=== PATIENT | female | born 2005 | race Hispanic/Latino ===

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

== ENCOUNTER 2024-05-18 12:56 | Outpatient (CLI) | payer MEDICAID, SELFPAY ==
[2024-05-18 13:17] VITALS: BP 126/72; PULSE 96
[2024-05-18 13:18] VITALS: RESP 14; TEMP 36.7; O2SAT 99
[2024-05-18 13:32] VITALS: BMI 28.3
[2024-05-18 14:03] LABS: ROM Internal Control Test YES-OK TO RESULT pt. (Internal QC); ROM Patient Test Negative (Negative); Record Kit Lot#, ROM+ K1660
--- NOTE | 2024-05-19 07:15 | OB.TRI.NOTE ---
HPI - General General Date of Admission: 05/18/24 Date of Service: 05/18/24 Chief Complaint: contractions HPI Narrative ARLETH PEREZ, is a 18 F who presents intermittent contractions and possible LOF. Found to be 1 cm with negative ROM. 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-employment Home Medications ?Medication ?Instructions ?Recorded ?Last Taken ?Type ondansetron 4 mg disintegrating 4 mg PO Q6H PRN nausea and 07/16/23 Unknown Rx tablet vomiting #20 tabs sulfamethoxazole 800 1 tab PO BID #20 tabs 07/16/23 Unknown Rx mg-trimethoprim 160 mg tablet (Bactrim DS) ferrous sulfate 325 mg (65 mg 325 mg PO QODAY 05/18/24 Unknown History iron) tablet (iron) Allergy/AdvReac Type Severity Reaction Status Date / Time coconut Allergy Food Verified 05/18/24 13:43 Allergy peanut Allergy Food Verified 05/18/24 13:43 Allergy Family History no significant family his Social History current occupational status: student Smoking Status: Current some day smoker tobacco type: e-cigarettes substance use type: does not use NST FHR Rate Baby A Variability:: Moderate Accelerations:: 15 x 15 Decelerations:: None NST Reactive:: Yes FHR Category:: Category I Uterine Activity:: irregular Assessment & Plan (1) 38 weeks gestation of : (2) False labor: PLAN: Plan Discharged home.
== END 2024-05-18 14:30 | disposition home or self-care (01) ==
LOC: WPOUT 13:00 → WP 13:02
PROVIDERS: PCP Pediatrics; Referring Provider Obstetrics & Gynecology; Visit Provider Obstetrics & Gynecology
DX: O47.1 False labor at or after 37 completed weeks of gestation (principal); Z3A.38 38 weeks gestation of pregnancy; O99.513 Diseases of the respiratory system complicating pregnancy, third trimester; O99.333 Smoking (tobacco) complicating pregnancy, third trimester; J45.909 Unspecified asthma, uncomplicated; F17.290 Nicotine dependence, other tobacco product, uncomplicated
CPT/HCPCS: 59025; 59050; 84112; 99221; G0378

== ENCOUNTER 2024-05-26 07:55 | Inpatient (IN) | payer MEDICAID, SELFPAY ==
[2024-05-26] VITALS (54 sets, daily range): BP systolic 97–142; BP diastolic 55–94; PULSE 64–122; RESP 15–20; TEMP 35.8–36.6; O2SAT 92–100; BMI 29.2
--- NOTE | 2024-05-26 08:21 | PCM.HP.OB ---
HPI - General General Date of Admission: 05/26/24 HPI Narrative ARLETH PERZE, is a 18 F who presents for contractions that started last night. She thinks she also may be leaking fluid. 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-employment Home Medications ?Medication ?Instructions ?Recorded ?Last Taken ?Type ondansetron 4 mg disintegrating 4 mg PO Q6H PRN nausea and 07/16/23 Unknown Rx tablet vomiting #20 tabs sulfamethoxazole 800 1 tab PO BID #20 tabs 07/16/23 Unknown Rx mg-trimethoprim 160 mg tablet (Bactrim DS) ferrous sulfate 325 mg (65 mg 325 mg PO QODAY 05/18/24 05/24/24 12:00 History iron) tablet (iron) Allergy/AdvReac Type Severity Reaction Status Date / Time coconut Allergy Food Verified 05/18/24 13:43 Allergy peanut Allergy Food Verified 05/18/24 13:43 Allergy Family History no significant family his Social History current occupational status: student Smoking Status: Current some day smoker tobacco type: e-cigarettes substance use type: does not use NST FHR Rate Baby A Baseline: 140 Variability:: Moderate Accelerations:: 15 x 15 Decelerations:: None NST Reactive:: Yes FHR Category:: Category I Uterine Activity:: TOCO reading every 2-3 minutes ROS Eyes Eyes: Denies blurry vision, change in vision or spots in vision ENT HEENT: Denies dizziness or headache(s) Cardiovascular Cardiovascular: Denies abdominal pain, chest pain or dyspnea Respiratory/Chest Respiratory/Chest: Denies cough, dyspnea, shortness of breath at rest or shortness of breath with exertion Gastrointestinal Gastrointestinal: Denies abdominal pain, diarrhea or vomiting Genitourinary Genitourinary: Denies change in urinary stream, difficulty urinating or dysuria Musculoskeletal Musculoskeletal: Reports none Integumentary Integumentary: Denies rash Neurologic Neurologic: Denies dizziness, headache(s), memory loss or weakness Psychiatric Psychiatric: Reports none Vital Signs Vital Signs Vital Signs: 05/26/24 07:45 05/26/24 07:45 05/26/24 07:45 Temperature Temperature Source Temporal Pulse Rate 96 Respiratory Rate Blood Pressure 121/76 H BP Systolic 121 BP Diastolic 76 Pulse Ox 05/26/24 07:45 05/26/24 07:45 05/26/24 07:45 Temperature Temperature Source Pulse Rate 96 Respiratory Rate 20 H Blood Pressure BP Systolic BP Diastolic Pulse Ox 97 05/26/24 07:45 05/26/24 07:50 05/26/24 07:50 Temperature 97.8 F Temperature Source Pulse Rate 99 Respiratory Rate Blood Pressure BP Systolic BP Diastolic Pulse Ox 97 05/26/24 07:55 05/26/24 07:55 Temperature Temperature Source Pulse Rate 92 Respiratory Rate Blood Pressure BP Systolic BP Diastolic Pulse Ox 98 Weight Weight: 165 lb 5.547 oz Body Mass Index (BMI) 29.2 Physical Exam Const alert, oriented x3 and no apparent distress General Appearance: cooperative Orientation / Consciousness: awake Exam Limitations: no limitations HEENT normocephalic Head and Scalp: normal to inspection Eyes General Eye: normal appearance of both eyes Neck full ROM and no lymphadenopathy Lymph Lymphatic: no lymphadenopathy noted Chest inspection of chest normal Resp normal respiratory effort, normal air movement and clear to auscultation bilaterally Effort and Inspection: able to speak in complete sentences and symmetric chest movement Cardio regular rate and regular rhythm GI normal to inspection, nondistended, normoactive bowel sounds Manual OB Exam: presentation cephalic, dilated 4, effaced 80 and station 0 Amniotic Fluid: clear amniotic fluid Back/Spine normal ROM Extremity full ROM and no calf tenderness Skin no rashes or lesions noted General Skin Exam: no breakdown Neuro oriented x3 and CN's II-XII intact bilaterally Psych mental status grossly normal and thought process normal Labs Labs Labs: Hct 39.3 % (37-46) Hgb 12.9 g/dL (12.0-15.0) Assessment & Plan (1) 39 weeks gestation of : (2) Rubella non-immune status, antepartum: (3) Anxiety: (4) Anemia: (5) History of posttraumatic stress disorder (PTSD):
[2024-05-26 08:28] LABS: ROM Internal Control Test YES-OK TO RESULT pt. (Internal QC)
[2024-05-26 08:32] LABS: ROM Patient Test POSITIVE (Negative)
[2024-05-26] MEDS: Lactated Ringers 1,000 ML 50 ML IV ×2 (09:30→16:27)
[2024-05-26 10:11] LABS: Absolute Lymphocyte Count 1.22 X10^3/uL (0.83-4.51); Absolute Neutrophil Count 9.3 X10^3/uL (2.0-7.7); Basophil# 0.04 X10^3/uL; Basophil% 0.4 % (0-1); Eosinophil# 0.16 X10^3/uL; Eosinophils% 1.4 % (0-5); Hematocrit 35.5 % (37-47); Lymphocyte # 1.22 X10^3/ul (0.83-4.51); Lymphocyte % 10.7 % (19-41); Mean Corpuscular Hgb 25.5 pg (27.0-32.0); Mean Corpuscular Volume 82.2 fL (81-99); Monocyte# 0.56 X10^3/uL; Monocyte% 4.9 % (0-10); NRBC Flagged by Analyzer 0 % (0-5); Neutrophil % 81.5 % (47-70); Platelet Count 302 K/mm3 (150-450); RBC Distribution Width CV 16.2 % (11.6-14.6); RBC Distribution Width SD 47.6 fl (35.1-43.9); Red Blood Count 4.32 M/mm3 (4.2-5.4); White Blood Count 11.4 K/mm3 (4.4-11.0)
[2024-05-26 10:55] LABS: Syphilis Antibodies Non-reactive
[2024-05-26] MEDS: fentaNYL-bupivacaine (epidural) 100 ML BAG EPIDURAL ×2 (12:08→16:25)
[2024-05-26] MEDS: Oxytocin 15 Units/NS 250ml 15 UNITS/250 ML IV.SOLN 2 UNITS IV (12:57)
--- NOTE | 2024-05-26 12:57 | PCM.PN.CNM ---
Subjective Subjective Patient seen at bedside. Comfortable with epidural. Objective Data Objective Data Vital Signs: Vital Signs Temp Pulse Resp BP Pulse Ox 97.4 F L 112 H 16 110/69 99 05/26/24 12:35 05/26/24 12:40 05/26/24 12:35 05/26/24 12:40 05/26/24 12:36 Weight: 165 lb 5.547 oz Body Mass Index (BMI) 29.2 Lab / Micro Data 05/26/24 09:30 Labs: Laboratory Results - last 24 hr 05/26/24 07:52: Vag Amniotic Fld Detect POSITIVE H 05/26/24 09:30: WBC 11.4 H, RBC 4.32, Hgb 11.0 L, Hct 35.5 L, MCV 82.2, MCH 25.5 L, MCHC 31.0 L, RDW Std Deviation 47.6 H, RDW Coeff of Ruthie 16.2 H, Plt Count 302, MPV 11.0, Immature Gran % (Auto) 1.100 H, Neut % (Auto) 81.5 H, Lymph % (Auto) 10.7 L, [place] % (Auto) 4.9, Eos % (Auto) 1.4, Baso % (Auto) 0.4, Absolute Neuts (auto) 9.3 H, Absolute Lymphs (auto) 1.22, Nucleated RBC % 0, Syphilis Total Ab Non-reactive, Blood Type A POSITIVE, Antibody Screen NEGATIVE Assessment & Plan (1) History of posttraumatic stress disorder (PTSD): (2) Anemia: (3) Anxiety: (4) Rubella non-immune status, antepartum: (5) 39 weeks gestation of : PLAN: Plan CE /-2 Forebag felt AROM forebag for clear fluid Start Pitocin at 2 mu/ min and increase per policy Anticipate
[2024-05-26] MEDS: Acetaminophen 500 MG Tablet PO (17:28)
[2024-05-26] MEDS: Oxytocin 15 Units/NS 250ml 15 UNITS/250 ML IV.SOLN 83 UNITS IV (18:30)
--- NOTE | 2024-05-26 18:40 | OP.PCM_ITS ---
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 She pushed well to the +2 station. Decision made to use vacuum because of recurrent decelerations. head position confirmed and vacuum placed but would not obtain suction. Patient continued to push well while a new vacuum obtained and with next contraction placed on head and good suction obtained. With good maternal pushing effort descent was noted. Vacuum released. Vacuum replaced and with a gentle pull further descent was noted. Vacuum again released. The vacuum was placed a third time and with good maternal pushing effort the head began to crown. The vacuum popped off (one time). 2nd degree episiotomy cut. With next contraction the head delivered. Tight nuchal cord x2 clamped and cut. With good maternal pushing effort the head gently guided to allow delivery of anterior and posterior shoulders. No excess traction placed on head. The body delivered. Placenta delivered with gentle traction and good uterine tone ob tained. Presentation: ABRIL Amniotic Membrane Rupture Type: Spontaneous Amniotic Fluid Description: Clear (with terminal meconuim) Placental Delivery Description: Expressed Placenta Disposition: [facility] Specimen(s) Removed: Placenta Cord Vessel Description: 3 Vessels Cord Entanglement: Around neck x 2, loose Nuchal Cord Compression: With compression Infant A Gender: Male (1 minute): 7 (5 minute): 8 Delayed Cord Clamping: No Post Vaginal Delivery Medications Given After Delivery: IV Pitocin Episiotomy Description: Midline (2nd degree - repaired with 3-0 vicryl) Laceration: None Complication Complications: None
[2024-05-27] VITALS: BP 102/68; PULSE 110; RESP 16; TEMP 36.6; O2SAT 96
[2024-05-27 04:00] VITALS: BP 94/54; PULSE 86; RESP 16; TEMP 37; O2SAT 98
[2024-05-27] MEDS: Acetaminophen 500 MG Tablet 1000 MG PO (08:14)
[2024-05-27 08:32] VITALS: BP 110/74; PULSE 97; RESP 16; TEMP 36.9; O2SAT 98
--- NOTE | 2024-05-27 08:43 | PCM.PN.OB ---
Subjective Subjective Doing well per patient and nursing staff. Ambulating and taking PO without difficulty. Voiding and passing flatus. Pain controlled. , services for assistance. Denies headache, visual changes, chest pain, shortness of breath, leg pain or increased bleeding. Lochia normal. Objective Data Objective Data Vital Signs: Vital Signs Temp Pulse Resp BP Pulse Ox O2 Del Method 98.5 F 97 16 110/74 98 Room Air 05/27/24 08:32 05/27/24 08:32 05/27/24 08:32 05/27/24 08:32 05/27/24 08:32 05/27/24 08:32 Oxygen Delivery Method Room Air Weight: 165 lb 5.547 oz Body Mass Index (BMI) 29.2 Intake & Output: Intake and Output for Last 24 Hours 05/25/24 05/26/24 05/27/24 23:59 23:59 23:59 Intake Total 1264.17 / 1264.17 Output Total 1000 / 1000 Balance 264.17 / 264.17 Lab / Micro Data 05/26/24 09:30 Labs: Laboratory Results - last 24 hr 05/26/24 09:30: WBC 11.4 H, RBC 4.32, Hgb 11.0 L, Hct 35.5 L, MCV 82.2, MCH 25.5 L, MCHC 31.0 L, RDW Std Deviation 47.6 H, RDW Coeff of Ruthie 16.2 H, Plt Count 302, MPV 11.0, Immature Gran % (Auto) 1.100 H, Neut % (Auto) 81.5 H, Lymph % (Auto) 10.7 L, [place] % (Auto) 4.9, Eos % (Auto) 1.4, Baso % (Auto) 0.4, Absolute Neuts (auto) 9.3 H, Absolute Lymphs (auto) 1.22, Nucleated RBC % 0, Syphilis Total Ab Non-reactive, Blood Type A POSITIVE, Antibody Screen NEGATIVE ROS Constitutional Constitutional: Reports systems reviewed and no addt'l complaints, except as documented; Denies headache(s) Eyes Eyes: Denies acute decrease in peripheral vision, blurry vision or change in vision ENT HEENT: Reports systems reviewed and no addt'l complaints, except as documented Cardiovascular Cardiovascular: Denies chest pain or dizziness Respiratory/Chest Respiratory/Chest: Denies cough, dyspnea, dyspnea on exertion, shortness of breath at rest or shortness of breath with exertion Gastrointestinal Gastrointestinal: Denies abdominal pain, diarrhea, nausea or vomiting Genitourinary Genitourinary: Denies abdominal discomfort Musculoskeletal Musculoskeletal: Denies limited range of motion Integumentary Integumentary: Reports systems reviewed and no addt'l complaints, except as documented Neurologic Neurologic: Reports systems reviewed and no addt'l complaints, except as documented Psychiatric Psychiatric: Reports systems reviewed and no addt'l complaints, except as documented Endocrine Endocrinology: Reports systems reviewed and no addt'l complaints, except as documented Hematologic/Lymphatic Hematologic/Lymphatic: Reports systems reviewed and no addt'l complaints, except as documented Allergic/Immunologic Allergic/Immunologic: Reports systems reviewed and no addt'l complaints, except as documented Physical Exam Const alert and oriented x3 General Appearance: cooperative Orientation / Consciousness: awake, oriented to person, oriented to place and oriented to time Exam Limitations: no limitations HEENT normocephalic Head and Scalp: normal to inspection, normocephalic and atraumatic Face and Sinus: normal facial exam Eyes General Eye: normal appearance of both eyes Neck full ROM Chest Chest: symmetrical chest wall rise Resp normal respiratory effort and normal air movement Auscultation: clear to auscultation bilaterally Cardio regular rate, regular rhythm, S1 normal heart sound, S2 normal heart sound, no murmurs, no rub, no gallops and no clicks GI normal to inspection, nondistended, normoactive bowel sounds and non-tender appearance of the vagina normal Bladder / Kidney Exam: no CVA tenderness Back/Spine normal ROM Extremity normal to inspection and full ROM Skin no rashes or lesions noted Neuro oriented x3 and moves all extremities Sensorium / Orientation: awake, alert and oriented to person Motor Exam: clonus absent Deep Tendon Reflexes: Rt Patellar (L4): 2+ and Lt Patellar (L4): 2+ Assessment & Plan (1) History of posttraumatic stress disorder (PTSD): (2) Anxiety: (3) Rubella non-immune status, antepartum: (4) Vacuum extractor delivery, delivered: (5) Second degree perineal laceration: (6) Lactating mother: PLAN: Plan 1) Routine PPD#1 2) Vitals stable 3) I&O 4) Pain management 5) services PRN 6) Planning D/C home tomorrow
--- NOTE | 2024-05-27 11:26 | CASEMGMT ---
Social Work Assessment Labor and Delivery Unit Patient Address: [address] [place] [address] [place] [address] Phone number: [phone] Date of Referral: 05/26/24 Time of Referral:? 0810 Referred By: Dr. Moralez Date of Intervention: ?05/27/24? Time of Intervention:? 1000 Reason for Referral:? patient's parents both have history of substance abuse Sw completed chart review and acknowledges social work consult for grandparent's history of substance abuse. Sw presented to bedside and introduced self to mother of baby (MOB- Genet) and another visitor who was present. MOB states that visitor present is Ender/ isabella Thomson and stated it was okay to complete assessment with her present. While talking with MOB father of baby (FOB- Mack) then returned from bathroom and was present for second half of conversation. History obtained from: medical records, staff, MOB, FOB and paternal grandma also participated sporadically throughout completion of assessment. ??? Household composition: MOB reports that she currently resides with her mom, Briseida Mayberry. FOB is currently residing with his mom. Paternal grandma states that her house is not appropriate for baby to reside in at this time. She states that she is in the process of fixing it up so that MOB and baby can then reside with them. - Sw asked MOB how her relationship is with her mom as there was an incident prior to delivery where maternal grandma was escorted off of unit and told that she cannot return. MOB states that her mom is very controlling and tried to control who was present for her delivery and MOB set her straight. MOB states that when she is discharged her mom will pick her and baby up and they were be going back to her mom's house. - Sw asked if MOB and maternal grandma are able to get along and have a healthy relationship in order to provide a stable and nurturing environment for baby to live in. MOB states that she and her mom will be fine, because if the baby is there my mom won't start anything. - Thang asked MOB if she has applied for [employer], which she states that she is on the wait list for. Paternal grandma states that she told MOB about [facility] as a potential resource for her. Sw explained that although MOB and maternal grandma may not always see eye to eye, there have not been any incidents of domestic violence, and as of now MOB is not homeless and has a safe place where she and baby can stay. Patient's parent/guardian status:? ?TRUE states that she and KIRIT have been together for 2 years after meeting through mutual friends. No concerns reported of domestic violence or intimate partner violence. Medical History: ?TRUE is 18 year old female who is 1, para 0- now 1 following labor and delivery of . MOB states that she did not learn that she was until she was 20 weeks. MOB states that she has always had irregular periods, and wasn't feeling well. MOB states that she took three tests that were all negative, but then presented to hospital and was confirmed. MOB states that when she went to her first appointment with [facility] she learned that she was already half way through the . TRUE presented to hospital in labor after spontaneous rupture of membranes. Baby had some decelerations and TRUE was taken to OR, where she ended up delivering baby vaginally. Baby boy, named Clif Solomon, weighed 6lb 4oz with apgars of 7 and 8 at one and five minutes of life, respectfully. TRUE is breast feeding and reports that it has been difficult to wake baby and keep him awake at breast. MOB states that feeds are also starting to feel painful. Sw encouraged MOB to talk to about any feeding difficulties that she has been experiencing, and reminding MOB of importance for baby to eat at least every 2-3 hours unless he shows hunger cues prior to that. Baby will be followed by Dr. Barker for pediatrics. Educational Status:? TRUE reports to completing high school. KIRIT is enrolled in an academic program at [employer] to help him obtain his diploma, he then has intentions of starting the adult welding program there. Financial Status: Neither parent is employed at this time. Both parents are financially dependent upon their parents to help them obtain necessary needs. Infant Supplies: TRUE states that she has obtained all necessary baby supplies, including: car seat, safe sleep space, clothes, diapers and wipes. Childcare/Caregiver(s):? TRUE reports that she will be the primary caregiver to baby. MOB states that she does not feel comfortable having baby go out of her sight. Sw educated MOB on what is healthy vs not healthy and how to establish some good boundaries and practice self care. Transportation:?? Neither parents has their drivers license. Both parents are dependent upon their parents for transportation to medical appointments. Programs/Agencies Involved: ?TRUE is connected to insurance provided by [employer] (Medicaid- [place]), she was informed that she needs to ensure that baby gets added to her insurance within thirty days. TRUE also receives SNAP benefits. TRUE is connected to WIC and already has a appointment scheduled. TRUE was educatd about [facility] and the benefits that resource provides, MOB receptive to referral being made by this sw. ?? - KIRIT states that he sees a counselor [facility] at [facility]. Children Services/Legal Issues:?No former children services involvement as parents. Sw to make referral to [facility] due to maternal THC use during . - Sw spoke to [facility] hotline screener, Diane. - Diane states that she is uncertain if this will get screened in or out. Sw asked that if it gets screened in and a worker needs to meet with TRUE to please call into the unit and notify nursing to expect someone. Diane expressed understanding. Behavioral Health Issues: ??Mental Health History:?FOMarj reports that he has been diagnosed with ADHD, Bipolar and PTSD. FOMarj denies being prescribed any medications to help manage his mental health symptoms. TRUE states that she has been diagnosed with anxiety and depression. Sw asked TRUE how she has felt during her and now that she has delivered baby in regards to her mental health. TRUE states that she felt fine during her and now that baby is here she reports to feeling good and does not have any concerns. ?? Substance Use History:??TRUE denies substance use during . When completing chart review thang notes that hand profiler indicates that TRUE reports to using THC during . When thang specifically asked TRUE about using THC during as it is noted by a provider, she denied use again, stating that she only vaped nicotine. . Family History:???TRUE states that her father was an alcoholic, but he has . Sw educated parents on importance of utilizing healthy and safe coping mechanisms opposed to seeking comfort from drugs or alcohol. Parents express understanding. ?? Drug Screens: No drug screens observed in TRUE's chart review, but she did provide consent for baby to be tested. Baby's urine at time of delivery was negative, meconium still pending. Family/Social Stressors:? MOB denies any issues, concerns or stressors at this time. MOB states that she is experiencing some soreness while and was encouraged to follow up with support. Support Systems: MOB identifies FOMarj as her biggest support and his two mom's. Depression/Shaken Baby/Safe Sleeping: Sw educated parents on signs and symptoms of baby blues and mood and anxiety disorders to be on the lookout for. Parents express understanding. Sw educated parents on shaken baby prevention and ABCs of safe sleep. MOB and FOB express understanding. FOMarj states that if TRUE were to struggle with her mental health during this period he would be able to recognize that and would know how to help and support her. ASSESSMENT:? MOB and baby currently admitted following labor and delivery. TRUE reports that she is planning on staying admitted until tomorrow (05/28). Both parents with mental health history and concern for substance abuse although initially it was denied. The room smelled like THC, education provided to MOB, FOB and paternal grandma that anytime anyone smokes anything they need to wash their face, hands, and change their shirt/ clothes prior to holding baby to prevent him from breathing that in. TRUE remained engaged and interactive during completion of assessment, although she appeared tired. MOB having difficulty with feeds and keeping baby awake at breast, education and support provided, encouraged to follow up and discuss concerns with support. TRUE is receptive to referral to [facility]- to be made on this date. Referral to Children Services warranted due to concern for substance use during - although MOB denies and baby urine screen negative. Safe Plan of Care for related to substance use:? Parents were encouraged to abstain from smoking THC or any other substances around baby. PLAN:?? No other services requested or indicated. MOB and baby to be discharged when medically ready. Parents were provided literature regarding: signs and symptoms of baby blues and mood and anxiety disorders, [facility], shaken baby prevention, ABCs of safe sleep and a list of county resources that are available for them should any needs present themselves. Lee Ann Morejon, WALL CRANE OPERATOR, CHEMICAL RECLAMATION EQUIPMENT OPERATOR
[2024-05-27 12:15] VITALS: BP 106/68; PULSE 90; RESP 16; TEMP 36.3; O2SAT 96
[2024-05-27 15:57] VITALS: BP 108/83; PULSE 102; RESP 18; TEMP 36.1
[2024-05-27] MEDS: Naproxen 500 MG Tablet PO (17:11)
[2024-05-27 20:20] VITALS: BP 123/76; PULSE 87; RESP 16; TEMP 36.6; O2SAT 97
[2024-05-28 01:56] VITALS: BP 99/69; PULSE 79; RESP 16; TEMP 36.3; O2SAT 96
[2024-05-28 08:00] VITALS: BP 111/68; PULSE 84; RESP 14; TEMP 36.6; O2SAT 99
--- NOTE | 2024-05-28 10:27 | PCM.PN.OB ---
Subjective Subjective Doing well per patient and nursing staff. Ambulating and taking PO without difficulty. Voiding and passing flatus. Pain controlled. , services for assistance. Denies headache, visual changes, chest pain, shortness of breath, leg pain or increased bleeding. Lochia normal. Objective Data Objective Data Vital Signs: Vital Signs Temp Pulse Resp BP Pulse Ox O2 Del Method 98 F 84 14 111/68 99 Room Air 05/28/24 08:00 05/28/24 08:00 05/28/24 08:00 05/28/24 08:00 05/28/24 08:00 05/28/24 08:00 Oxygen Delivery Method Room Air Weight: 165 lb 5.547 oz Body Mass Index (BMI) 29.2 Intake & Output: Intake and Output for Last 24 Hours 05/26/24 05/27/24 05/28/24 23:59 23:59 23:59 Intake Total 1264.17 / 1264.17 930.83 / 930.83 Output Total 1000 / 1000 Balance 264.17 / 264.17 930.83 / 930.83 Lab / Micro Data 05/26/24 09:30 ROS Constitutional Constitutional: Reports systems reviewed and no addt'l complaints, except as documented; Denies headache(s) Eyes Eyes: Denies acute decrease in peripheral vision, blurry vision or change in vision ENT HEENT: Reports systems reviewed and no addt'l complaints, except as documented Cardiovascular Cardiovascular: Denies chest pain or dizziness Respiratory/Chest Respiratory/Chest: Denies cough, dyspnea, dyspnea on exertion, shortness of breath at rest or shortness of breath with exertion Gastrointestinal Gastrointestinal: Denies abdominal pain, diarrhea, nausea or vomiting Genitourinary Genitourinary: Denies abdominal discomfort Musculoskeletal Musculoskeletal: Denies limited range of motion Integumentary Integumentary: Reports systems reviewed and no addt'l complaints, except as documented Neurologic Neurologic: Reports systems reviewed and no addt'l complaints, except as documented Psychiatric Psychiatric: Reports systems reviewed and no addt'l complaints, except as documented Endocrine Endocrinology: Reports systems reviewed and no addt'l complaints, except as documented Hematologic/Lymphatic Hematologic/Lymphatic: Reports systems reviewed and no addt'l complaints, except as documented Allergic/Immunologic Allergic/Immunologic: Reports systems reviewed and no addt'l complaints, except as documented Physical Exam Const alert and oriented x3 General Appearance: cooperative Orientation / Consciousness: awake, oriented to person, oriented to place and oriented to time Exam Limitations: no limitations HEENT normocephalic Head and Scalp: normal to inspection, normocephalic and atraumatic Face and Sinus: normal facial exam Eyes General Eye: normal appearance of both eyes Neck full ROM Chest Chest: symmetrical chest wall rise Resp normal respiratory effort and normal air movement Auscultation: clear to auscultation bilaterally Cardio regular rate, regular rhythm, S1 normal heart sound, S2 normal heart sound, no murmurs, no rub, no gallops and no clicks GI normal to inspection, nondistended, normoactive bowel sounds and non-tender appearance of the vagina normal Bladder / Kidney Exam: no CVA tenderness Back/Spine normal ROM Extremity normal to inspection and full ROM Skin no rashes or lesions noted Neuro oriented x3, CN's II-XII intact bilaterally and moves all extremities Sensorium / Orientation: awake, alert and oriented to person Motor Exam: clonus absent Deep Tendon Reflexes: Rt Patellar (L4): 2+ and Lt Patellar (L4): 2+ Assessment & Plan (1) Lactating mother: (2) Second degree perineal laceration: (3) Vacuum extractor delivery, delivered: (4) History of posttraumatic stress disorder (PTSD): (5) Anxiety: PLAN: Plan 1) Routine care, PPD #2 2) Vitals signs stable 3) Pain controlled 4) , services PRN 5) D/C home 6) Follow up in 2 weeks and 6 weeks
--- NOTE | 2024-05-28 10:27 | PCM.DC.SUM ---
Providers Date of Admission: 05/26/24 Primary Care Physician: Dr. Greyson Barker MD Reason For Visit: VAGINAL DELIVERY Diagnosis Discharge Diagnosis (1) History of posttraumatic stress disorder (PTSD): Status: Acute Code(s): Z86.59 - Personal history of other mental and behavioral disorders (2) Anxiety: Status: Acute Code(s): F41.9 - Anxiety disorder, unspecified (3) Rubella non-immune status, antepartum: Status: Acute Code(s): O09.899 - Supervision of other high risk pregnancies, unspecified trimester; Z28.39 - Other underimmunization status (4) Vacuum extractor delivery, delivered: Status: Acute Code(s): O75.9 - Complication of labor and delivery, unspecified (5) Second degree perineal laceration: Status: Acute Code(s): O70.1 - Second degree perineal laceration during delivery (6) Lactating mother: Status: Acute Code(s): Z39.1 - Encounter for care and examination of lactating mother Plan 1) Routine PPD#1 2) Vitals stable 3) I&O 4) Pain management 5) services PRN 6) Planning D/C home tomorrow Medications at Discharge Home Medications acetaminophen 500 mg tablet 1,000 mg (2 x 500 mg) PO Q6H PRN PRN Pain 1-10 Or Fever #0 tabs 05/28/24 naproxen 500 mg tablet 500 mg PO Q8H PRN PRN Pain Score 1-10 #0 tabs 05/28/24 Weight / BMI Weight Weight: 165 lb 5.547 oz Body Mass Index (BMI) 29.2 ABG / Lab / Microbiology Data 05/26/24 09:30 D/C Instructions Discharge Diet: No restrictions Discharge Activity: Return to Normal Activity, May Drive, May Shower and May Take a Tub Bath May resume sexual activity in: 6 weeks Weight Bearing Status: Full weight bearing Call your doctor if you observe: Fever of 101 or Higher, Inability to urinate, Using more than 1 pad per hour, Shortness of breath, Chest pain, Increased palpitations (irregular heartbeat), Calf discomfort and Uncontrolled pain Please Follow Up With: Estella Michael CNM When: 2 week virtual visit and 6 week visit Meaningful Use Info Meaningful Use Meaningful Use Diagnoses (Choose all that apply): None applicable Ischemic Stroke Statin Dosing Therapy Reference: STATIN DOSE THERAPY REFERENCE: * Patients > 75 years receive moderate or high dose statin therapy. * Patients 75 years or YOUNGER should receive HIGH intensity statin dose unless contraindicated. You will be required to document reason for non-treatment if statin daily dose does not meet guidelines. HIGH DOSE STATIN THERAPY DAILY Atorvastatin > than or = to 40 mg Rosuvastatin > than or = to 20 mg Amlodipine + Atorvastatin > than or = to 2.5/40 mg Ezetimibe + Simvastatin 10/80 mg Simvastatin 80mg Discharge Plan Admission Admit Date/Time: 05/26/24 07:55 Primary Reason for Your Visit: Vaginal Delivery Attending Provider: Minnie Cobb Primary Care Provider: Greyson Barker Discharge Orders/Prescriptions Prescriptions: New acetaminophen 500 mg Tablet 1,000 mg PO Q6H PRN PRN (Reason: Pain 1-10 Or Fever) Qty: 0 0RF naproxen 500 mg Tablet 500 mg PO Q8H PRN PRN (Reason: Pain Score 1-10) Qty: 0 0RF Discontinued sulfamethoxazole-trimethoprim [Bactrim DS] 800-160 mg tablet 1 tab PO BID Qty: 20 0RF ondansetron 4 mg tablet,disintegrating 4 mg PO Q6H PRN (Reason: nausea and vomiting) Qty: 20 0RF ferrous sulfate [iron] 325 mg (65 mg iron) tablet 325 mg PO QODAY Referrals / Follow Up: Greyson Barker MD [Primary Care Provider] - Minnie Cobb MD [Med Staff - Active Staff] - Disposition Disposition (needs filled in before D/C Order can be placed): Home, Self Care
--- NOTE | 2024-06-14 12:20 | CASEMGMT ---
[facility] Social work received mandated laborer golf course letter indicating that referral made by this neonatal social worker on 05/27/24 was screened in. The assigned electric utility lineworker is Jessica Edwards ([phone]). No other needs identified at this time. Lee Ann Morejon, CONCRETE PAVEMENT INSTALLER, BELT BUCKLE MAKER
== END 2024-05-28 12:00 | disposition home or self-care (01) | DRG 560 ==
LOC: WPOUT 08:02 → WP 08:02
PROVIDERS: Advanced Practice Midwife; Obstetrics & Gynecology; Admitting Provider Obstetrics & Gynecology; PCP Pediatrics; Referring Provider Obstetrics & Gynecology; Visit Provider Obstetrics & Gynecology
DX: O99.02 Anemia complicating childbirth (principal); Z37.0 Single live birth; D64.9 Anemia, unspecified; F17.290 Nicotine dependence, other tobacco product, uncomplicated; O99.334 Smoking (tobacco) complicating childbirth; O70.1 Second degree perineal laceration during delivery; O77.0 Labor and delivery complicated by meconium in amniotic fluid; O69.2XX0 Labor and delivery complicated by other cord entanglement, with compression, not applicable or unspecified; O76 Abnormality in fetal heart rate and rhythm complicating labor and delivery; Z28.39 Other underimmunization status; Z79.899 Other long term (current) drug therapy; Z3A.39 39 weeks gestation of pregnancy
CPT/HCPCS: 59025; 59050; 84112; 85025; 86780; 86850; 86900; 86901; 99221; J7120; G0378

== ENCOUNTER 2025-05-15 13:05 | Emergency (ER) | payer MEDICAID, SELFPAY ==
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
[2025-05-15 13:07] VITALS: BP 109/70; PULSE 82; RESP 16; TEMP 37.3; O2SAT 99; BMI 21.7
[2025-05-15 13:21] LABS: Hematocrit 40.8 % (37-47); Hemoglobin 13.2 g/dL (12.0-15.0); Immature Granulocytes Count 0.020 X10^3/uL (0.0-0.0); Mean Corp Hgb Conc 32.4 g/dL (32-36); Mean Corpuscular Volume 84.0 fL (81-99); Mean Platelet Vol. 9.8 fl (6.2-12.0); NRBC Flagged by Analyzer 0 % (0-5); Platelet Count 319 K/mm3 (150-450); RBC Distribution Width CV 14.6 % (11.6-14.6); RBC Distribution Width SD 44.8 fl (35.1-43.9); Red Blood Count 4.86 M/mm3 (4.2-5.4); White Blood Count 5.9 K/mm3 (4.4-11.0)
[2025-05-15 14:09] LABS: AST(SGOT) 13 U/L (<=31); Alanine Aminotransfer ALT/SGPT 10 U/L (<=34); Albumin, Serum 4.4 g/dL (3.5-5.0); Alkaline Phosphatase 73 U/L (35-104); Anion Gap 14 (5-15); BUN 9 mg/dL (4-19); BUN/Creat Ratio 13.8 RATIO (10-20); Calcium,Total 9.3 mg/dL (7.6-11.0); Carbon Dioxide 22.1 mmol/L (21.0-32.0); Chloride 104 mmol/L (98-108); Estimated Creatinine Clearance 110.80 ml/min (50-250); Globulin 3.2 g/dL (2.2-4.2); Glucose 83 mg/dL (70-99); Lipase 22 U/L (13-75); Potassium 3.8 mmol/L (3.3-5.1)
[2025-05-15 14:19] LABS: Internal QC Validated? YES +Cl - CLEAR BKGD; Pregnancy, Serum, hCG Quali. NEGATIVE Negative; Record Kit Lot#, Serum Preg. 980607
[2025-05-15 15:15] VITALS: BP 101/58; PULSE 78; RESP 14; O2SAT 98
--- NOTE | 2025-05-15 15:37 | CT_ITS ---
PROCEDURE: ABDOMEN/PELVIS W IV CONT ONLY 05/15/2025 REASON FOR EXAM: RIGHT LOWER QUADRANT ABDOMINAL PAIN TECHNIQUE: Procedure Code: CTABDPELIV Modality: CT Procedure: ABDOMEN/PELVIS W IV CONT ONLY Coronal and Sagittal reconstruction series were provided. CONTRAST: Isovue 370 VOLUME: 75 mL One or more dose reduction techniques were used (e.g., Automated exposure control, adjustment of the mA and/or kV according to patient size, use of iterative reconstruction technique. RADIATION DOSE SUMMARY: CTDlvol: 18 mGy DLP: 267 mGycm COMPARISON: July 16, 2023 FINDINGS: Lung bases: Clear Liver: Focal fat at the interlobar fissure. Gallbladder: Normal Spleen: Normal Pancreas: Normal Adrenals: Normal Kidneys: Normal Bladder: Normal Reproductive Organs: Uterus is anteverted. Left ovary is normal. Right ovary is associated with a circumscribed cyst measuring 2.8 x 3.3 cm. Bowel: Stomach, small bowel and colon are unremarkable. Appendix: Normal Lymph nodes: Normal Vasculature: Normal Peritoneum / Retroperitoneum: No free air, free fluid or mass. Bones: Normal CT/Abdomen/Pelvis W IV Cont ONLY IMPRESSION: 1. Right ovarian cyst is statistically benign. Correlate with midcycle pain. ACR White Paper recommendations (Winters, et al. J Am Anrdey Radiol 2020;17:248-254) suggest the following: No further imaging requi red. 2. Appendix is unremarkable. Reading Location: [id number]
--- NOTE | 2025-05-15 15:50 | EX.ED.DYSGE1 ---
HPI History of Present Illness Chief Complaint: Abd Pain Detail of Chief Complaint: Pain inferior McBurney's point that started at 12 midnight Informant: patient Onset/Context/Timing Onset: Today and Hours Context: Sudden Onset Timing: Continuous Quality: Pain Location: Inferior McBurney's point Current Severity: Mild Maximum Severity: Moderate Worsened by: When the nurse practitioner at urgent care pushed her abdomen Relieved by: Leaving it alone Associated Symptoms Associated Symptoms: Nausea, no anorexia, elevated temperature 100 Narrative Narrative: Patient is a 19-year-old female. She is sexually active. Her last menses is unknown. She states last evening her significant other wanted to have intercourse. She states that she was in too much discomfort. She does report temperature of 100.0 °F. She does endorse nausea. She is not anorexic. She states the pain is made worse when the nurse practitioner at urgent care pushed on it. She denies dysuria, frequency, urgency or hematuria. She denies history of renal ureteral lithiasis. She denies history of ovarian cyst, endometriosis, STI. Prior similar symptoms: No Recent Illness/Hospitalization: No PFSH PFSH Medical History Family history of hearing loss at age younger than 7 years Physical exam, pre-employment Asthma Home Medications Medication Instructions Recorded Last Taken Type NK 05/15/25 Unknown History Allergy/AdvReac Type Severity Reaction Status Date / Time coconut Allergy Food Verified 05/15/25 13:07 Allergy peanut Allergy Food Verified 05/15/25 13:07 Allergy Social History current occupational status: student Smoking Status: Current every day smoker tobacco type: e-cigarettes substance use type: does not use ROS ROS ED Constitutional Constitutional ED: Reports fever(s); Denies chills, subjective, sweats or weight loss Eyes Eyes: Denies blurry vision or change in vision ENT ENT ED: Denies ear pain, rhinorrhea or sore throat Cardiovascular Cardiovascular: Denies chest pain, orthopnea, palpitations, paroxysmal nocturnal dyspnea or racing heartbeat Respiratory/Chest Respiratory/Chest: Denies cough, dyspnea, dyspnea on exertion, orthopnea or paroxysmal nocturnal dyspnea Gastrointestinal Gastrointestinal: Reports abdominal pain, nausea and other Details: No diarrhea recently. ; Denies constipation, diarrhea, melena or vomiting Genitourinary Genitourinary ED: Denies dysuria, hematuria or urinary frequency Musculoskeletal Musculoskeletal: Denies arthralgias, back pain or myalgias Integumentary Denies rash Endocrine Endocrinology: Denies cold intolerance or heat intolerance Hematologic/Lymphatic Hematologic/Lymphatic: Reports systems reviewed and no addt'l complaints, except as documented EXAM Physical Exam Const Vital Signs: 05/15/25 13:07 05/15/25 15:15 Temperature 99.2 F H Temperature Source Oral Pulse Rate 82 78 Respiratory Rate 16 14 Blood Pressure 109/70 101/58 L Blood Pressure Mean 83 72 Pulse Ox 99 98 Oxygen Delivery Method Room Air Room Air Positive well nourished and well developed General Appearance ED: well developed and NAD; Negative for pallor HEENT Reports moist mucous membranes HEENT Narrative: Head is atraumatic and normocephalic. Ears normal. Nares patent Eyes PERRL and EOMs intact bilaterally General Eye ED: Negative for pale conjunctiva or scleral icterus Neck no lymphadenopathy, supple and no JVD Chest Wall inspection of chest normal and palpation of chest normal Resp normal respiratory effort and clear to auscultation bilaterally Cardio regular rate, regular rhythm, S1 normal heart sound, S2 normal heart sound and no murmurs GI normal to inspection, nondistended, normoactive bowel sounds, non-distended and no masses; Negative for non-tender or hepatosplenomegaly Palpation: soft and tender RLQ, McBurney's point, periumbilical, suprapubic, Obturator sign, Psoas sign and Rovsing's sign Back/Spine no CVA tenderness Extremity normal to inspection Neuro oriented x3 and CN's II-XII intact bilaterally Sensorium / Orientation: alert Psych mental status grossly normal Skin no rashes or lesions noted, no wounds and skin turgor normal General Skin Exam: elasticity normal; Negative for jaundice or pallor MDM MDM MDM Narrative Medical decision making narrative: With right lower quadrant abdominal pain need to evaluate for appendicitis, regional enteritis, mesenteric adenitis, abdominal pain unknown etiology, gynecologic pathology needs to be considered i.e. ovarian cyst. Lab Data Attestation: I reviewed the patient's lab results. Lab results narrative: CBC is unremarkable. Comprehensive metabolic panel is normal. test was negative Labs: Laboratory Results - last 24 hr 05/15/25 13:05 WBC 5.9 RBC 4.86 Hgb 13.2 Hct 40.8 MCV 84.0 MCH 27.2 MCHC 32.4 RDW Std Deviation 44.8 H RDW Coeff of Ruthie 14.6 Plt Count 319 MPV 9.8 Immature Gran % (Auto) 0.300 Neut % (Auto) 57.1 Lymph % (Auto) 32.9 [place] % (Auto) 8.9 Eos % (Auto) 0.3 Baso % (Auto) 0.5 Absolute Neuts (auto) 3.4 Absolute Lymphs (auto) 1.93 Nucleated RBC % 0 Sodium 140 Potassium 3.8 Chloride 104 Carbon Dioxide 22.1 Anion Gap 14 BUN 9 Creatinine 0.67 L Estim Creat Clear Calc 110.80 Est GFR (MDRD) Non-Af 128 BUN/Creatinine Ratio 13.8 Glucose 83 Calcium 9.3 Total Bilirubin 0.32 AST 13 ALT 10 Alkaline Phosphatase 73 Total Protein 7.6 Albumin 4.4 Globulin 3.2 Albumin/Globulin Ratio 1.4 Lipase 22 Serum , Qual NEGATIVE Radiography Diagnostic Testing: Clinical Impression(s) from Imaging Studies Abdomen/Pelvis CT 05/15/25 15:37 IMPRESSION: 1. Right ovarian cyst is statistically benign. Correlate with midcycle pain. ACR White Paper recommendations (Winters, et al. J Am Andrey Radiol 2020;17:248-254) suggest the following: No further imaging required. 2. Appendix is unremarkable. Reading Location: [facility] Treatment and Re-Evaluation :: Patient was informed of results. She also was informed of recommendation by radiologist based on white paper. Discharge Plan Triage Chief Complaint: Abd Pain ED Provider: Les Marrero Dx/Rx/DC Orders Clinical Impression: Abdominal pain, right lower quadrant, Cyst of right ovary, Elevated temperature Instructions: ED Ovarian Cyst Prescriptions: No Action NK Primary Care Provider: Greyson Barker Referrals: Greyson Barker MD [Primary Care Provider, Pediatrics] Activity Restrictions/Additional Instructions: 1. If you develop severe pain, nausea and vomiting return to the emergency department because this may represent ovarian torsion 2. Follow-up with your [facility] in the next 5 to 7 days Print Language: Luxembourgish
[2025-05-15 17:19] VITALS: BP 126/78; PULSE 64; RESP 18; TEMP 36.5; O2SAT 99
== END 2025-05-15 17:20 | disposition home or self-care (01) ==
PROVIDERS: Emergency Provider Emergency Medicine; PCP Pediatrics; Visit Provider Emergency Medicine
DX: R10.31 Right lower quadrant pain (principal); N83.201 Unspecified ovarian cyst, right side; R11.0 Nausea; J45.909 Unspecified asthma, uncomplicated; R50.9 Fever, unspecified; F17.290 Nicotine dependence, other tobacco product, uncomplicated
CPT/HCPCS: 74177; 80053; 83690; 84703; 85025; 99284; Q9967; A4216

== ENCOUNTER 2025-06-01 13:48 | Emergency (ER) | payer MEDICAID, SELFPAY ==
[2025-06-01 13:49] VITALS: BP 99/62; PULSE 68; RESP 15; TEMP 36.6; O2SAT 100; BMI 21.4
[2025-06-01] MEDS: 0.9% Normal Saline (1000mL) 1,000 ML 1000 ML IV (14:20)
--- NOTE | 2025-06-01 14:29 | EDS_ITS ---
HPI History of Present Illness Chief Complaint: Nausea/Vomiting Narrative Narrative: Chief complaint and HPI: 19-year-old female with past medical history of asthma presents for evaluation of nausea and vomiting. Onset of symptoms 2 days ago. Emesis is nonbloody. Also having nonbloody diarrhea. States her son is in daycare with similar symptoms however his have already improved. She endorses decreased p.o. intake secondary to her symptoms. She denies any fever, chills, shortness of breath, chest pain, URI symptoms, abdominal pain, dysuria. States she has irregular periods and there is a chance she could be . Review of systems: See HPI Medications: As listed on the chart Allergies: As listed on the chart PFSH: Per chart Vital signs: As listed on the chart. Reviewed. Physical exam: Gen: A&O x3, NAD Head: Normocephalic, atraumatic Eyes: No sclera icterus, conjunctiva clear ENT: Moist mucous membranes CV: RRR, no murmurs Resp: Lungs CTA BL, no w/r/c GI: Abd soft, non-distended, non-tender, no r/r/g Musc: Full ROM, no deformity Skin: Warm, dry Neuro: Alert, oriented, grossly intact, sensation intact Psych: Cooperative, appropriate mood and affect [facility] History Family history of hearing loss at age younger than 7 years Physical exam, pre-employment Asthma Home Medications ?Medication ?Instructions ?Recorded ?Last Taken ?Type NK 05/15/25 Unknown History Allergy/AdvReac Type Severity Reaction Status Date / Time coconut Allergy Food Verified 06/01/25 13:51 Allergy peanut Allergy Food Verified 06/01/25 13:51 Allergy Social History current occupational status: student Smoking Status: Current every day smoker tobacco type: e-cigarettes substance use type: does not use EXAM Physical Exam Const Vital Signs: 06/01/25 13:49 Temperature 97.9 F Temperature Source Oral Pulse Rate 68 Respiratory Rate 15 Blood Pressure 99/62 Blood Pressure Mean 74 Pulse Ox 100 Oxygen Delivery Method Room Air MDM MDM MDM Narrative Medical decision making narrative: 19-year-old female with past medical history of asthma presents for evaluation of nausea and vomiting. Onset of symptoms 2 days ago. Emesis is nonbloody. Also having nonbloody diarrhea. States her son is in daycare with similar symptoms however his have already improved. She endorses decreased p.o. intake secondary to her symptoms. On presentation, patient no acute distress. Vitals are stable. Differential diagnosis includes but is not limited to viral gastroenteritis, electrolyte abnormality, dehydration, UTI, . Patient abdominal exam is benign therefore do not think any CT abdomen pelvis is needed. NS bolus and Zofran ordered for symptoms. Laboratory workup ordered. CBC without leukocytosis or anemia. CMP unremarkable without YOSVANY. Lipase unrem arkable. UA positive for ketones which is consistent with mild dehydration. Negative for UTI. Urine negative. On reevaluation, patient has had no vomiting here in the emergency department. She was able to tolerate p.o. intake. Patient stable to discharge home. Suspect viral etiology. Zofran prescribed. Follow-up with PCP. She confirmed understand the plan. Impression: 1. Viral gastroenteritis 2. Mild dehydration Lab Data Labs: Laboratory Results - last 24 hr 06/01/25 06/01/25 14:30 15:02 WBC 10.4 RBC 5.05 Hgb 13.7 Hct 41.0 MCV 81.2 MCH 27.1 MCHC 33.4 RDW Std Deviation 42.0 RDW Coeff of Ruthie 14.2 Plt Count 399 MPV 9.4 Immature Gran % (Auto) 0.200 Neut % (Auto) 86.9 H Lymph % (Auto) 10.6 L [place] % (Auto) 2.0 Eos % (Auto) 0.0 Baso % (Auto) 0.3 Absolute Neuts (auto) 9.0 H Absolute Lymphs (auto) 1.10 Nucleated RBC % 0 Sodium 139 Potassium 3.8 Chloride 104 Carbon Dioxide 22.7 Anion Gap 12 BUN 9 Creatinine 0.56 L Estim Creat Clear Calc 132.56 Est GFR (MDRD) Non-Af 134 BUN/Creatinine Ratio 16.3 Glucose 101 H Calcium 9.4 Total Bilirubin 0.32 AST 14 ALT 10 Alkaline Phosphatase 68 Total Protein 7.5 Albumin 4.5 Globulin 3.1 Albumin/Globulin Ratio 1.5 Lipase 25 Urine Color Yellow Urine Clarity Sl. Cloudy Urine pH 8.0 Ur Specific [place] 1.010 Urine Protein 15 H Urine Glucose (UA) Normal Urine Ketones 150 A* Urine Occult Blood Negative Urine Nitrite Negative Urine Bilirubin Negative Urine Urobilinogen Normal Ur Leukocyte Esterase 25 H Urine RBC 0 SEEN Urine WBC 0-5 SEEN Ur Squamous Epith Cells 0-5 SEEN Urine Bacteria 1+ Urine Mucus 1+ Urine Test Negative Discharge Plan Triage Chief Complaint: Nausea/Vomiting ED Provider: Wade Coto Dx/Rx/DC Orders Prescriptions: No Action NK Primary Care Provider: Greyson Barker Referrals: Greyson Barker MD [Primary Care Provider, Pediatrics] Print Language: Mauritian
[2025-06-01 14:38] LABS: Hematocrit 41.0 % (37-47); Hemoglobin 13.7 g/dL (12.0-15.0); Immature Granulocytes Count 0.020 X10^3/uL (0.0-0.0); Mean Corp Hgb Conc 33.4 g/dL (32-36); Mean Corpuscular Volume 81.2 fL (81-99); Mean Platelet Vol. 9.4 fl (6.2-12.0); NRBC Flagged by Analyzer 0 % (0-5); Platelet Count 399 K/mm3 (150-450); RBC Distribution Width CV 14.2 % (11.6-14.6); RBC Distribution Width SD 42.0 fl (35.1-43.9); Red Blood Count 5.05 M/mm3 (4.2-5.4); White Blood Count 10.4 K/mm3 (4.4-11.0)
[2025-06-01 15:09] LABS: Red Blood Cells-Urine 0 SEEN /hpf (0-5)
[2025-06-01 15:22] LABS: Color, Urine Yellow (Yellow); Glucose, Dipstick Normal (Normal); Leukocyte Esterase-Dipstick 25 /ul (Negative); Nitrite-Dipstick Negative (Negative); Occult Blood-Urine Negative /ul (Negative); Protein-Dipstick 15 mg/dl (Negative); Specific Gravity, Urine 1.010 (1.002-1.030); Urine Bilirubin Dipstick Negative (Negative)
[2025-06-01 15:26] LABS: AST(SGOT) 14 U/L (<=31); Alanine Aminotransfer ALT/SGPT 10 U/L (<=34); Albumin, Serum 4.5 g/dL (3.5-5.0); Alkaline Phosphatase 68 U/L (35-104); Anion Gap 12 (5-15); BUN 9 mg/dL (4-19); BUN/Creat Ratio 16.3 RATIO (10-20); Calcium,Total 9.4 mg/dL (7.6-11.0); Carbon Dioxide 22.7 mmol/L (21.0-32.0); Chloride 104 mmol/L (98-108); Estimated Creatinine Clearance 132.56 ml/min (50-250); Globulin 3.1 g/dL (2.2-4.2); Glucose 101 mg/dL (70-99); Lipase 25 U/L (13-75); Potassium 3.8 mmol/L (3.3-5.1)
[2025-06-01 15:30] LABS: Ketone-Dipstick 150 mg/dl (Negative)
[2025-06-01 15:31] LABS: Squamous Epithelial Cells - UA 0-5 SEEN /hpf (5-10)
[2025-06-01 15:32] LABS: Internal QC Validated? YES +Cl - CLEAR BKGD; Mucous, Urine 1+ /hpf (<or=2+); Pregnancy, Urine Negative Negative; Record Kit Lot#,Urine Preg 0000980607
[2025-06-01 16:25] VITALS: BP 108/66; PULSE 60; RESP 14; TEMP 36.6; O2SAT 100
== END 2025-06-01 16:26 | disposition home or self-care (01) ==
PROVIDERS: Emergency Provider Surgery; PCP Pediatrics; Visit Provider Surgery
DX: A08.4 Viral intestinal infection, unspecified (principal); E86.0 Dehydration; J45.909 Unspecified asthma, uncomplicated; F17.290 Nicotine dependence, other tobacco product, uncomplicated
CPT/HCPCS: 80053; 81001; 81025; 83690; 85025; 96361; 96374; 99284; A4216; J2405

== ENCOUNTER 2025-06-02 16:17 | Emergency (ER) | payer MEDICAID, SELFPAY ==
[2025-06-02 16:17] VITALS: BP 118/73; PULSE 64; RESP 14; TEMP 36.8; O2SAT 99; BMI 22.4
--- OUTSIDE RECORDS SUMMARY | 2025-06-02 16:42 | XMS RPT_ITS | CCD ---
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 L500.4050, L100.0100, L501.2450 #### [facility] [address] [place], [address] Albumin/Globulin [Mass ratio] 1.4 {ratio} Normal 0.9-2.4 [facility] Comment on above: Performed By: #### L 700.6800, L500.4050, L100.0100, L501.2450 #### [facility] [address] [place], [address] ALK PHOS 73 U/L Normal 35-104 [facility] Comment on above: Performed By: #### L 700.6800, L500.4050, L100.0100, L501.2450 #### [facility] [address] [place], [address] ALT [Catalytic activity/Vol] 10 U/L Normal <=34 [facility] Comment on above: Performed By: #### L 700.6800, L500.4050, L100.0100, L501.2450 #### [facility] [address] [place], [address] AST [Catalytic activity/Vol] 13 U/L Normal <=31 [facility] Comment on above: Performed By: #### L 700.6800, L500.4050, L100.0100, L501.2450 #### [facility] [address] [place], [address] Bilirubin [Mass/Vol] 0.32 mg/dL Normal 0.00-1.30 [facility] Comment on above: Performed By: #### L 700.6800, L500.4050, L100.0100, L501.2450 #### [facility] [address] [place], [address] BUN/CRE 13.8 RATIO Normal 10-20 [facility] Comment on above: Performed By: #### L 700.6800, L500.4050, L100.0100, L501.2450 #### [facility] [address] [place], [address] Calcium [Mass/Vol] 9.3 mg/dL Normal 7.6-11.0 [facility] Comment on above: Performed By: #### L 700.6800, L500.4050, L100.0100, L501.2450 #### [facility] [address] [place], [address] Chloride [Moles/Vol] 104 mmol/L Normal 98-108 [facility] Comment on above: Performed By: #### L 700.6800, L500.4050, L100.0100, L501.2450 #### [facility] [address] [place], [address] CO2 [Moles/Vol] 22.1 mmol/L Normal 21.0-32.0 [facility] Comment on above: Performed By: #### L 700.6800, L500.4050, L100.0100, L501.2450 #### [facility] [address] [place], [address] Creatinine [Mass/Vol] 0.67 mg/dL Low 0.70-1.20 [facility] Comment on above: Performed By: #### L 700.6800, L500.4050, L100.0100, L501.2450 #### [facility] [address] [place], [address] ECRCL 110.80 ml/min Normal 50-250 [facility] Comment on above: Performed By: #### L 700.6800, L500.4050, L100.0100, L501.2450 #### [facility] [address] [place], [address] GAP 14 Normal 5-15 [facility] Comment on above: Performed By: #### L 700.6800, L500.4050, L100.0100, L501.2450 #### [facility] [address] [place], [address] GFR/1.73 sq M.predicted among non-blacks MDRD (S/P/Bld) [Vol rate/Area] 128 mL/min/{1.73_m2} Normal >60 [facility] Comment on above: Result Comment: mL/m in/1.73m2 CKD-EPI Creatinine Equation (2020) Performed By: #### L 700.6800, L500.4050, L100.0100, L501.2450 #### [facility] [address] [place], [address] Globulin (S) [Mass/Vol] 3.2 g/dL Normal 2.2-4.2 [facility] Comment on above: Performed By: #### L 700.6800, L500.4050, L100.0100, L501.2450 #### [facility] [address] [place], [address] Glucose [Mass/Vol] 83 mg/dL Normal 70-99 [facility] Comment on above: Performed By: #### L 700.6800, L500.4050, L100.0100, L501.2450 #### [facility] [address] [place], [address] Potassium [Moles/Vol] 3.8 mmol/L Normal 3.3-5.1 [facility] Comment on above: Performed By: #### L 700.6800, L500.4050, L100.0100, L501.2450 #### [facility] [address] [place], [address] Sodium [Moles/Vol] 140 mmol/L Normal 133-145 [facility] Comment on above: Performed By: #### L 700.6800, L500.4050, L100.0100, L501.2450 #### [facility] [address] [place], [address] T PROT 7.6 g/dL Normal 5.9-8.4 [facility] Comment on above: Performed By: #### L 700.6800, L500.4050, L100.0100, L501.2450 #### [facility] [address] [place], [address] Urea nitrogen [Mass/Vol] 9 mg/dL Normal 4-19 [facility] Comment on above: Performed By: #### L 700.6800, L500.4050, L100.0100, L501.2450 #### [facility] [address] [place], [address] Emergency Department Summary on 05-15-2025 Emergency Department Summary [facility] Medical Records Department [address] [place] [address] Emergency Department Summary 05/15/25 MR#: [id number] Acct: [id number] Name: GENET MAYBERRY Rep #: [id number] : 2005 19 From: Les Marrero MD PCP: Dr. Greyson Pimentel MD Status:REG ER Location: ED HPI History of Present Illness Chief Complaint: Abd Pain Detail of Chief Complaint: Pain inferior McBurney's point that started at 12 midnight Informant: patient Onset/Context/Timing Onset: Today and Hours Context: Sudden Onset Timing: Continuous Quality: Pain Location: Inferior McBurney's point Current Severity: Mild Maximum Severity: Moderate Worsened by: When the nurse practitioner at urgent care pushed her abdomen Relieved by: Leaving it alone Associated Symptoms Associated Symptoms: Nausea, no anorexia, elevated temperature 100 Narrative Narrative: Patient is a 19-year-old female. She is sexually active. Her last menses is unknown. She states last evening her significant other wanted to have intercourse. She states that she was in too much discomfort. She does report temperature of 100.0 ???F. She does endorse nausea. She is not anorexic. She states the pain is made worse when the nurse practitioner at urgent care pushed on it. She denies dysuria, frequency, urgency or hematuria. She denies history of renal ureteral lithiasis. She denies history of ovarian cyst, endometriosis, STI. Prior similar symptoms: No Recent Illness/Hospitalizatio n: No PFSH PFSH Medical History Family history of hearing loss at age younger than 7 years Physical exam, pre-employment Asthma Home Medications ???Medication ???Instructions ???Recorded ???Last Taken ???Type NK 05/15/25 Unknown History Allergy/AdvReac Type Severity Reaction Status Date / Time coconut Allergy Food Verified 05/15/25 13:07 Allergy peanut Allergy Food Verified 05/15/25 13:07 Allergy Social History current occupational status: student Smoking Status: Current every day smoker tobacco type: e-cigarettes substance use type: does not use ROS ROS ED Constitutional Constitutional ED: Reports fever(s); Denies chills, subjective, sweats or weight loss Eyes Eyes: Denies blurry vision or change in vision ENT ENT ED: Denies ear pain, rhinorrhea or sore throat Cardiovascular Cardiovascular: Denies chest pain, orthopnea, palpitations, paroxysmal nocturnal dyspnea or racing heartbeat Respiratory/Chest Respiratory/Chest: Denies cough, dyspnea, dyspnea on exertion, orthopnea or paroxysmal nocturnal dyspnea Gastrointestinal Gastrointestinal: Reports abdominal pain, nausea and other Details: No diarrhea recently. ; Denies constipation, diarrhea, melena or vomiting Genitourinary Genitourinary ED: Denies dysuria, hematuria or urinary frequency Musculoskeletal Musculoskeletal: Denies arthralgias, back pain or myalgias Integumentary Denies rash Endocrine Endocrinology: Denies cold intolerance or heat intolerance Hematologic/Lymphatic Hematologic/Lymphatic: Reports systems reviewed and no addt'l complaints, except as documented EXAM Physical Exam Const Vital Signs: 05/15/25 13:07 05/15/25 15:15 Temperature 99.2 F H Temperature Source Oral Pulse Rate 82 78 Respiratory Rate 16 14 Blood Pressure 109/70 101/58 L Blood Pressure Mean 83 72 Pulse Ox 99 98 Oxygen Delivery Method Room Air Room Air Positive well nourished and well developed General Appearance ED: well developed and NAD; Negative for pallor HEENT Reports moist mucous membranes HEENT Narrative: Head is atraumatic and normocephalic. Ears normal. Nares patent Eyes PERRL and EOMs intact bilaterally General Eye ED: Negative for pale conjunctiva or scleral icterus Neck no lymphadenopathy, supple and no JVD Chest Wall inspection of chest normal and palpation of chest normal Resp normal respiratory effort and clear to auscultation bilaterally Cardio regular rate, regular rhythm, S1 normal heart sound, S2 normal heart sound and no murmurs GI normal to inspection, nondistended, normoactive bowel sounds, non-distended and no masses; Negative for non-tender or hepatosplenomegaly Palpation: soft and tender RLQ, McBurney's point, periumbilical, suprapubic, Obturator sign, Psoas sign and Rovsing's sign Back/Spine no CVA tenderness Extremity normal to inspection Neuro oriented x3 and CN's II-XII intact bilaterally Sensorium / Orientation: alert Psych mental status grossly normal Skin no rashes or lesions noted, no wounds and skin turgor normal General Skin Exam: elasticity normal; Negative for jaundice or pallor MDM MDM MDM Narrative Medical decision making narrative: With right (more content not included)... Normal [facility] Eosinophil percentageOrdered By: ED PROVIDER on 05-15-2025 Eosinophils/100 WBC (Bld) 0.3 % 0-5 [facility] Erythrocyte distribution wid th ratioOrdered By: ED PROVIDER on 05-15-2025 Erythrocyte distribution width (RBC) [Ratio] 14.6 % 11.6-14.6 [facility] Erythrocyte distribution wid th standard deviationOrdered By: ED PROVIDER on 05-15-2025 Erythrocyte distribution width (RBC) [Ratio] 44.8 fl High 35.1-43.9 [facility] Glomerular filtration rate ( GFR) estimation/1.73 sq m using serum, plasma, or whole bOrdered By: ED PROVIDER on 05-15-2025 GFR/1.73 sq M.predicted among non-blacks MDRD (S/P/Bld) [Vol rate/Area] 128 mL/min/{1.73_m2} >60 [facility] Comment on above: mL/min/1.73m2 CKD-EP I Creatinine Equation (2020) Hematocrit Auto (Bld) [Volum e fraction]Ordered By: ED PROVIDER on 05-15-2025 Hematocrit (Bld) [Volume fraction] 40.8 % 37-47 [facility] Hemoglobin measurementOrdere d By: ED PROVIDER on 05-15-2025 Hemoglobin (Bld) [Mass/Vol] 13.2 g/dL 12.0-15.0 [facility] Immature granulocytes/100 WB C Auto (Bld)Ordered By: ED PROVIDER on 05-15-2025 Immature granulocytes/100 WBC (Bld) 0.300 % 0.0-0.9 [facility] Comment on above: IG% - Immature Granu locytes (promyelocytes, myelocytes and metamyelocytes) > 1% indicates that a LEFT SHIFT is Present. Laboratory - Chemistry and C hemistry - challengeOrdered By: ED PROVIDER on 05-15-2025 AST [Catalytic activity/Vol] 13 U/L <32 [facility] Lipaseon 05-15-2025 Lipase [Catalytic activity/Vol] 22 U/L Normal 13-75 [facility] Comment on above: Result Comment: Laura norman note: LIPASE revised reference range effective 22. New Lipase methodology. Expected to produce lower values than the previous assay method. NEW Reference Range: 13 - 75 U/L Performed By: #### L 700.6800, L500.4050, L100.0100, L501.2450 #### [facility] [address] [facility] [place], [address] Lipase measurementOrdered By : ED PROVIDER on 05-15-2025 Lipase [Catalytic activity/Vol] 22 U/L 13-75 [facility] Comment on above: Please note:LIPASE r evised reference range effective 22. New Lipase methodology. Expected to produce lower values than the previous assay method. NEW Reference Range: 13 - 75 U/L MCV (mean corpuscular volume ) determinationOrdered By: ED PROVIDER on 05-15-2025 MCV (RBC) [Entitic vol] 84.0 fL 81-99 [facility] Mean corpuscular hemoglobin (MCH) determinationOrdered By: ED PROVIDER on 05-15-2025 MCH (RBC) [Entitic mass] 27.2 pg 27.0-32.0 [facility] Mean corpuscular hemoglobin concentration (MCHC) determinationOrdered By: ED PROVIDER on 05-15-2025 MCHC (RBC) [Mass/Vol] 32.4 g/dL 32-36 [facility] Mean platelet volume determi nationOrdered By: ED PROVIDER on 05-15-2025 Platelet mean volume (Bld) [Entitic vol] 9.8 fL 6.2-12.0 [facility] Monocyte percentageOrdered B y: ED PROVIDER on 05-15-2025 Monocytes/100 WBC (Bld) 8.9 % 0-10 [facility] Neutrophil percentageOrdered By: ED PROVIDER on 05-15-2025 Neutrophils/100 WBC (Bld) 57.1 % 47-70 [facility] Nucleated red blood cell per centageOrdered By: ED PROVIDER on 05-15-2025 Nucleated RBC/100 WBC (Bld) [Ratio] 0 % 0-5 [facility] Platelet countOrdered By: ED PROVIDER on 05-15-2025 Platelets (Bld) [#/Vol] 319 10*3/uL 150-450 [facility] Potassium measurement (mass/ volume)Ordered By: ED PROVIDER on 05-15-2025 Potassium (Unsp spec) [Mass/Vol] 3.8 mmol/L 3.3-5.1 [facility] ,Serum,hCG Quali.on 05-15-2025 HCG, SERUM QUAL Negative Normal [facility] Comment on above: Performed By: #### L 700.6800, L500.4050, L100.0100, L501.2450 #### [facility] [address] [place], [place], [address] RBC Auto (Bld) [#/Vol]Ordere d By: ED PROVIDER on 05-15-2025 RBC (Bld) [#/Vol] 4.86 10*6/uL 4.2-5.4 [facility] Serum beta-hCG test, qualita tiveOrdered By: ED PROVIDER on 05-15-2025 Beta HCG ( test) Ql Negative [facility] Serum creatinine measurement (mass/volume)Ordered By: ED PROVIDER on 05-15-2025 Creatinine [Mass/Vol] 0.67 mg/dL Low 0.70-1.20 [facility] Serum globulin measurementOr dered By: ED PROVIDER on 05-15-2025 Globulin (S) [Mass/Vol] 3.2 g/dL 2.2-4.2 [facility] Serum glucose measurement (m ass/volume)Ordered By: ED PROVIDER on 05-15-2025 Glucose [Mass/Vol] 83 mg/dL 70-99 [facility] Serum or plasma alanine escalante otransferase (ALT) measurementOrdered By: ED PROVIDER on 05-15-2025 ALT [Catalytic activity/Vol] 10 U/L <35 [facility] Serum or plasma albumin arsalan urement (mass/volume)Ordered By: ED PROVIDER on 05-15-2025 Albumin [Mass/Vol] 4.4 g/dL 3.5-5.0 [facility] Serum or plasma albumin/glob ulin mass ratioOrdered By: ED PROVIDER on 05-15-2025 Albumin/Globulin [Mass ratio] 1.4 {ratio} 0.9-2.4 [facility] Serum or plasma alkaline ignacio sphatase measurementOrdered By: ED PROVIDER on 05-15-2025 ALP [Catalytic activity/Vol] 73 U/L 35-104 [facility] Serum or plasma calcium arsalan urement (mass/volume)Ordered By: ED PROVIDER on 05-15-2025 Calcium [Mass/Vol] 9.3 mg/dL 7.6-11.0 [facility] Serum or plasma urea nitroge n measurement (mass/volume)Ordered By: ED PROVIDER on 05-15-2025 Urea nitrogen [Mass/Vol] 9 mg/dL 4-19 [facility] Sodium levelOrdered By: DREA BROWN on 05-15-2025 Sodium [Moles/Vol] 140 mmol/L 133-145 [facility] Total proteinOrdered By: ED PROVIDER on 05-15-2025 Protein [Mass/Vol] 7.6 g/dL 5.9-8.4 [facility] White blood cell (WBC) count Ordered By: ED PROVIDER on 05-15-2025 WBC (Bld) [#/Vol] 5.9 10*3/uL 4.4-11.0 [facility] CNOVon 11-03-2024 CNOV Office Visit (OBGYWM ) GENET MAYBERRY ([id number]) 3 F Date Time Provider Department 11/03/24 11:45 AM BOBBY CHU OBGYWM During your visit today, we recorded the following information about you: Blood pressure Weight 110/70 65.8 kg Bobby Chu APRN.CNP 11/03/2024 11:52 AM Signed Retail Reset Merchandiser offered: Patient declines. Genet presents for removal [...] in 1-2 months to assess OCP use. Bobby hCu APRN.Bobby Bhandari APRN.CNP 11/03/2024 11:51 AM Signed Oral [...] These are formulated to give you a watch repair person period. First day of next menstrual period start OR Quick Start (starting the day you get the pill) [...] less iron deficiency anemia in pill users. intermediate designer use is associated with a decreased incidence [...] disease. Obtaining a Prescription It is important (more content not included)... Normal [facility] CNPNon 10-28-2024 CNPN Telephone (OBGYWM) GENET MAYBERRY ([id number]) 3 F Date Time Provider Department 10/28/24 BOBBY CHU During your visit today, we recorded the following information about you: Delma Hernandez RN 10/28/2024 11:44 AM Signed Patient calling [...] - Anaphylaxis Date Reviewed: 08/26/2024 Reviewed by: Bobby Chu APRN.[employer] - Fully Assessed Reason for Visit: Orders [681] Primary Visit Diagnosis:Encounter for IUD removal [Z30.432] Order(s):REMOVE INTRAUTERINE DEVICE [8842832] Order #: [id number] Prescriptions as of 10/28/2024 - levonorgestrel (MIRENA) [...] by mouth every other day. - PNV no.208-ES-ao6-dha-epa- fish ( GUMMIES) 400 mcg-35 mg- 25 mg-5 [...] Encounter Status:Closed by LIZA KAM on 10/28/24 Normal [facility] Office Visit Reporton 2024 Office Visit Report [facility] [address] [place] [address] OFFICE VISIT Date of Service: 10/05/24 MR#: [id number] Acct: [id number] Patient: GNEET MAYBERRY Rep #: [id number] : 2005 Provider: SHOBHA Alvarenga Age/Sex: 18/F Location: [facility] Status: Signed Intake Vital Signs 05/30/24 09:32 Height 5 ft 3 in Intake Visit Reasons: PE/QUANT/RESP FIT/[place] Chief Complaint: assessment Allergies coconut Allergy (Verified 05/18/24 13:43) Food Allergy peanut Allergy (Verified 05/18/24 13:43) Food Allergy Office Procedures [facility] Billing Sheet Testing Pre-Employment PE: Yes Respirator Fit Testing: Yes Occquant-Quantiferon: Yes 10/17/24 0736 Date Zhen Moomaw PROCESS DEVELOPER-C Cosigner Signature: Date (if applicable) CC: Normal [facility] Quantiferon TB-Gold+on 10-07 QFT MITOGEN DELORIS > 10.00 Normal . [facility] Comment on above: Performed By: #### L 3400.8000 ####[facility] [address] [place], [place], [address] QFT NIL VALUE 0.01 IU/mL Normal . [facility] Comment on above: Performed By: #### L 3400.8000 ####[facility] [address] [place], [place], [id number] QFT TB GOLD+ Comment Normal . [facility] Comment on above: Result Comment: Franco tiFERON-TB Gold Plus is a qualitative indirect test for M tuberculosis infection (including disease) and is intended for use in conjunction with risk assessment, radiography, and other medical and diagnostic evaluations. The QuantiFERON-TB Gold Plus result is determined by subtracting the Nil value from either TB antigen (Ag) value. The Mitogen tube serves as a control for the test. Performed By: #### L 3400.8000 ####[facility] [address] [place], [place], [id number] QFT TB POS CRIT Negative Normal Negative [facility] Comment on above: Result Comment: No r esponse to M tuberculosis antigens detected. Infection with M tuberculosis is unlikely, but high risk individuals should be considered for additional testing (ATS/IDSA/CDC Clinical Practice Guidelines, 2017). The reference range is an Antigen minus Nil result of <0.35 IU/mL. The specimen received for QuantiFERON testing was incubated by the ordering institution. Specific procedures outlined in our Directory of Services and in the package insert for the QuantiFERON Gold (In Tube) test must be followed to enable for proper stimulation of cells for the production of interferon gamma. Chemiluminescence immunoassay methodology Performed at: [address] [id number] Rigger: Jb Kelley PhD, Phone: [phone] Performed By: #### L 3400.8000 ####[facility] [address] [facility] [place], [address] QFT TB1+ AG DELORIS 0.01 IU/mL Normal . [facility] Comment on above: Performed By: #### L 3400.8000 ####[facility] [address] [place], [address] QFT TB2+ AG DELORIS 0 IU/mL Normal . [facility] Comment on above: Performed By: #### L 3400.8000 ####[facility] [address] [facility] [place], [address] Urgent Care Visit Reporton 0 10-05-2024 Urgent Care Visit Report [facility] [address], [address] [place] [id number] OFFICE VISIT Date of Service: 10/05/24 MR#: [id number] Acct: [id number] Name: GENET MAYBERRY Rep #: [id number] : 2005 Provider: SHOBHA Alvarenga Age/Sex: 18/F Location: [facility] Status: Signed Intake Vital Signs 05/30/24 09:32 Height 5 ft 3 in Intake Visit Reasons: PE/NON DOT/PHYSICAL/[place] [facility] Chief Complaint: assessment Allergies coconut Allergy (Verified 05/18/24 13:43) Food Allergy peanut Allergy (Verified 05/18/24 13:43) Food Allergy [facility] Medical History (Updated 06/05/24 @ 00:01 by Jackie Pinto) Family history of hearing loss at age younger than 7 years Physical exam, pre-employment Asthma Family History no significant family his Social History current occupational status: student Smoking Status: Former smoker substance use type: does not use HPI HPI Chief Complaint: assessment Details: GENET MAYBERRY, is a 18 F who presents to the office today for HPI: Patient presents today for prework physical. Denies any chronic medical history and denies any recent fever cough congestion sore throat or earache. ROS: As noted in HPI Physical Exam: VITALS: Reviewed. GEN: Healthy appearing, well-developed, NAD. PSYCH: AOx3. Normal memory, mood, and affect. HEENT -Eyes: -No discharge or redness; -Ears: -Mouth and throat: Moist mucous membranes. NECK: CV: Regular rate and rhythm LUNGS: Normal respiratory effort. Lungs clear bilaterally. SKIN: Warm, well perfused. No skin rashes or abnormal lesions noted. MSK: Normal gait. NEURO: Ambulating with no limitations. Normal muscle strength and tone. No focal deficits. Office Procedures Physical Exam Coding PE Coding Pre-employment PE: Yes Coding Level of Care Code No Charge Assessment and Plan Assessment and Plan Orders: Orders Quantiferon TB-Gold+ Today Z02.1 - Encounter for pre-employment examination 10/05/24 1425 Date Zhen Alvarenga PROCESS DEVELOPER-C Cosigner Signature: Date (if applicable) CC: [facility] Samantha 08-28-2024 [facility] Telephone ([facility]) GENET MAYBERRY ([id number]) 3 F Date Time Provider Department 08/28/24 SONJA SINGH During your visit today, we recorded the following information about you: Sonja Singh APRN.CNP 09/05/2024 11:28 AM Signed Pt never seen results. Please check with her if she pick up operator the prescription or not. Sonja Singh APRN.Concepcion Valderrama RN 09/05/2024 11:43 AM Signed Spoke with patient. Notified of results. Concepcion Agudelo RN Allergies As of Date: 08/28/2024 Noted Allergy Reaction COCONUT 11/11/2023 7 - Swelling Comments: Throat swelling PEANUT BUTTER FLAVOR 12/09/2023 10 - Anaphylaxis Date Reviewed: 08/26/2024 Reviewed by: Bobby Chu APRN.CNP - Fully Assessed Reason for Visit: Results [...] by mouth every other day. - PNV no.264-NQ-ox5-dha-epa- fish ( GUMMIES) 400 mcg-35 mg- 25 mg-5 [...] Encounter Status:Closed by CONCEPCION AGUDELO on 09/05/24 Normal [facility] BACTERIAL VAGINOSIS NAATon 0 08-26-2024 Lactobacillus crispatus+gasseri+calderon ii + Gardnerella vaginalis + Atopobium vaginae rRNA ANDERSON+probe Ql (Vag fld) Detected Abnormal Not detected [facility] Comment on above: Order Comment: Speci men Type: SWABOrdering Facility: [facility] Address: [address] [place] [address] Performed By: #### B VAMP, CVTV ####[facility] LABCLIA [id number] [place] [address] [place] CLEMENTINE/TRICHOMONAS NAATon 0 08-26-2024 C. glabrata RNA ANDERSON+probe Ql (Vag fld) Not detected Normal Not detected [facility] Comment on above: Order Comment: Speci men Type: SWABOrdering Facility: [facility] Address: [address] [place] [address] Performed By: #### B VAMP, CVTV ####[facility] LABCLIA [id number] [place] [address] [place] Clementine sp DNA ANDERSON+probe Ql (Vag fld) Not detected Normal Not detected [facility] Comment on above: Order Comment: Speci men Type: SWABOrdering Facility: [facility] Address: [address] [place] [address] Result Comment: The Clementine species group target includes C. albicans, C. tropicalis, C. parapsilosis, and C. dubliniensis. Performed By: #### B VAMP, CVTV ####[facility] LABCLIA [id number] [place] [address] [place] T. vaginalis DNA ANDERSON+probe Ql (Unsp spec) Not detected Normal Not detected [facility] Comment on above: Order Comment: Speci men Type: SWABOrdering Facility: [facility] Address: [address] [place] [address] Performed By: #### MELI COLEYTV ####[facility] [id number] [place] [address] [place] CNOVon 08-26-2024 CNOV Office Visit (OBGYWM ) GENET MAYBERRY ([id number]) 3 F Date Time Provider Department 08/26/24 3:15 PM BOBBY CHU OBGYWM During your visit today, we recorded the following information about you: Blood pressure Weight 120/70 69.9 kg Bobby Chu APRN.[employer] OFFICER 08/26/2024 3:22 PM Signed Retail Reset Merchandiser offered: Patient declines. Genet Mayberry presents today for IUD check. She had a Mirena placed on 07/22/2024. She has had bleeding since placement, ranging from light to heavy. REVIEW OF SYSTEMS: CARPENTER REPAIRER: Negative for abnormal vaginal discharge + irregular bleeding SENSITIVE EXAM: The sensitive examination was discussed with the Patient or Patient's Authorized Aerospace Project Manager. As applicable, any other physician, advance practice provider, medical student, or other health professional student that will be observing or involved in the sensitive examination for educational or training purposes was discussed with the Patient or Authorized Aerospace Project Manager. The Patient or Authorized Aerospace Project Manager has agreed to proceed with the sensitive [...] CBC and HCG ordered. Bleeding precautions reviewed. Bobby Chu APRN.CNP Medical Decision Making: Problems: Low: Acute, uncomplicated illness or injury Data: Unique test(s) ordered: 3+ Risk: Minimal: Minimal risk from testing/treatment Medical Decision Making Level: 3 - Low Allergies As of Date: 08/26/2024 Noted Allergy Reaction COCONUT 11/11/2023 7 - Swelling Comments: Throat swelling PEANUT BUTTER FLAVOR 12/09/2023 10 - Anaphylaxis Date Reviewed: 08/26/2024 Reviewed by: Bobby Chu APRN.[employer] OFFICER - Fully Assessed Reason for Visit: Follow Up [171] Primary Visit Diagnosis:Surveillance of previously prescribed intrauterine contraceptive device [Z30.431] Other Visit Diagnoses:Encounter for routine checking of intrauterine contraceptive device (IUD) [Z30.431] Abnormal uterine bleeding [N93.9] Vaginal discharge [N89.8] Order(s):PELVIC US WHI [1089848] Order #: [id number]: 1 FUTURE COMPLETE BLOOD COUNT [SQCBC] Order #: [id number] FUTURE HCG QUANTITATIVE [SQHCGQT] Order #: [id number] FUTURE CLEMENTINE/TRICHOMONAS NAAT [SQCVTV] Order #: [id number] BACTERIAL VAGINOSIS NAAT [SQBVAMP] Order #: [id number] Prescriptions as of 08/26/2024 - levonorgestrel (MIRENA) [...] by mouth every other day. - PNV no.623-KJ-mx3-dha-epa- fish ( GUMMIES) 400 mcg-35 mg- 25 mg-5 [...] for Encounter Date Provider Department Center 08/26/2024 [id number] CHU [facility] Encounter Status:Closed by BOBBY CHU on 08/26/24 [facility] CNOVon 07-22-2024 CNOV Office Visit (KIRSTIN ) GENET MAYBERRY ([id number]) 3 F Date Time Provider Department 07/22/24 11:45 AM BOBBY CHU During your visit today, we recorded the following information about you: Blood pressure Weight 110/60 67.6 kg Bobby Chu APRN.[employer] OFFICER 07/22/2024 12:28 PM Signed Retail Reset Merchandiser offered: Patient declines. Genet presents today for [...] IUD source: office provided IUD lot #: [id number] Exp date: 09/16/2026 [facility] [id number] UNIVERSAL PROTOCOL / SAFETY CHECKLIST Procedure to [...] Plan of Care Visit completed when applicable. Bobby Chu APRN.XIAO The cervix was prepped with betadine. The [...] were reviewed. Follow up in one month. Bobby Chu APRN.Ester Porras MA 07/22/2024 11:20 AM Signed POST IUD [...] please contact the office. Referring Provider: SY PENNINGTON [[id number]] Allergies As of Date: 07/22/2024 Noted Allergy Reaction COCONUT 11/11/2023 7 - Swelling Comments: Throat swelling PEANUT BUTTER FLAVOR 12/09/2023 10 - Anaphylaxis Date Reviewed: 07/22/2024 Reviewed by: Bobby Chu APRN.[employer] OFFICER - Fully Assessed Reason for Visit: Insertion Of IUD [291] Primary Visit Diagnosis:Encounter for IUD insertion [Z30.430] Order(s):INSERT INTRAUTERINE DEVICE [[id number]] Order #: [id number] [] levonorgestrel 21 mcg/24hr (up to 8 yrs) 52 mg 1 Each intrauterine device (MIRENA)Disp: Rfl: levonorgestrel (MIRENA) 21 mcg/24hr (up to 8 yrs) 52 mg IUD1 Each by INTRAUTERINE route as directed.Disp: 1 EachRfl: 0 UA DIP,URINE HCG (POC) [[id number]] Order #: [id number]. #:[id number] Prescriptions as of 07/22/2024 - levonorgestrel (MIRENA) [...] by mouth every other day. - PNV no.810-QO-ss7-dha-epa- fish ( GUMMIES) 400 mcg-35 mg- 25 mg-5 [...] 3 months of use. You may have mild-sever (more content not included)... Normal [facility] UA DIP,URINE HCG (POC)on Beta HCG ( test) Ql (U) Negative Negative [facility] Comment on above: Location:[facility], [address], [place], [address] Assistant Passenger Locomotive Engineer (POCT) Internal QC [place] [facility] Location:[facility], [address], [place], [address] [facility] POINT OF CARE [facility] CNPNon 06-22-2024 CNPN Telephone (OBGYWM) GENET MAYBERRY ([id number]) 3 F Date Time Provider Department 06/22/24 BOBBY CHU During your visit today, we recorded the following information about you: Concepcion Agudelo RN 06/22/2024 2:44 PM Signed Received breast pump RX from [address] To to sign. YOUNG Downey Trisha, RN 06/22/2024 4:31 PM Signed Order signed and faxed to [address] Delma Hernandez RN Allergies As of Date: 06/22/2024 Noted [...] by mouth every other day. - PNV no.791-IL-fv9-dha-epa- fish ( GUMMIES) 400 mcg-35 mg- 25 mg-5 [...] , third trimester *04/07/2024 Encounter Status:Closed by DELMA HERNANDEZ on 06/22/24 Normal [facility] MR/BMS.[facility] [address] [place] [address] OFFICE VISIT Date of Service: 05/29/24 MR#: [id number] Acct: [id number] Name: CHRISGENET JANNA Rep #: [id number] : 2005 Provider: Iliana Aguilera NP Age/Sex: 18/F Location: [facility] Status: Signed Intake Vital Signs 05/26/24 07:54 05/30/24 09:32 Height 5 ft 3 in 5 ft 3 in Intake Visit Reasons: assessment Chief Complaint: assessment Accompanied by: Sister Allergies coconut Allergy (Verified 05/18/24 13:43) Food Allergy peanut Allergy (Verified 05/18/24 13:43) Food Allergy : Yes PFSH PFSH Medical History (Updated 05/27/24 @ 08:44 by Estella Michael CNM) Family history of hearing loss at age younger than 7 years Physical exam, pre-employment Asthma Family History no significant family his Social History current occupational status: student Smoking Status: Former smoker substance use type: does not use History Elective abortions Hx Para 0 Spontaneous abortions Hx # Term Pregnancies Ectopic pregnancies Hx # Pregnancies Multiple births # of living children HPI HPI HPI: GENET MAYBERRY, is a 18 F who presents to the office today for assessment. History provided by the patient. ROS ROS Const Constitutional: Denies fever(s) or lethargy : Denies nipple discharge Skin Skin/Breast: Denies breast pain, breast skin changes or nipple discharge Details: q2-3 hours, 20-40 minutes to one side, milk coming in well- leaking, mom has pumped 4x and given baby a bottle because she plans to combination feed (breast and bottle feed breastmilk), pumping 1-1.5 oz and baby taking that well, some nipple pain with initial latch that improves as the feed continues Exam Maternal Assessment Breast Assessment Bilateral Breasts: Full Nipple Assessment Bilateral Nipples: Everted Areolar Tissue Areolar Tissue: Pliable Assessment Baby Feeding History Is your baby latching onto the breast: Yes Number of Breast Feedings in 24 hours: q2-4 hours Minutes per breast: First Breast: 20-40 Supplements Supplement Type:: Expressed milk Frequency: 4x Amount: 1-1.5 oz Breast Pumping Type of Breast Pump: Lansinoh Frequency: 4x Amount: 1-1.5 oz Reason for supplements or pumping:: Maternal choice to combination feed Goals Breast Feeding Goals: Exclusive Exam Const General: comfortable and no acute distress Orientation: alert and oriented x3 Chest Breast inspection: normal inspection of the breasts Breast palpation: normal palpation of the breasts (full, no warmth ) Resp Effort Inspection: normal respiratory effort Skin General: no rashes or lesions noted Psych Appearance: grossly normal Mental Status: mental status grossly normal Affect: normal affect Assessment and Plan Assessment and Plan (1) nipple pain: Plan: Educated patient to pull babies chin down to deepen latch and prevent further nipple breakdown. Gel pads provided, can alternate with cream. Can send in medicated cream if worsening. Follow up if no improvement or for any new/worsening symptoms. (2) Care and examination of lactating mother: Plan: Latch Score L - Latch Latch: Too sleepy or reluctant, no latch achieved (0) A - Audible Swallowing Audible Swallowing: None (0) T - Type of Nipple Type of Nipple: Everted (after stimulation) (2) C - Comfort (Breast/Nipple) Comfort (Breast/Nipple): Filling/reddened/small blisters/bruises/mild/ moderate discomfort (1) (leaking ) H - Hold (Positioning) Hold (Positioning): Minimal assist, teach/hold one side and mother does other (1) Total Score Total Score:: 4 Observation Feeding Observed:: Yes Educated on feeding on demand, offering both sides with each feed, haakaa use, pumping, milk supply, milk storage and milk regulation. Follow up with PRN. Coding Level of Care Code Off vis,est,level 3 Diagnoses nipple pain O92.29 Care and examination of lactating mother Z39.1 05/30/24 1007 Date Ilianaeliud Aguilera PROCESS DEVELOPER PROCESS DEVELOPER-C Cosigner Signature: Date (if applicable) CC: Normal [facility] (ROM) Rupture Of Membraneson 05-26-2024 ROM Positive Abnormal Negative [facility] Comment on above: Result Comment: Amni otic fluid present indicates rupture of Membranes. RESULTS CALLED TO MY GAINES 05/26/24 0828 Enid Chu. REPORT READ BACK BY SAME . Performed By: #### L 205.1000 #### [facility] [address] [place], [place], [address] CBC W/Diff, Automatedon 05-17 Absolute Lymph 1.22 X10 3/uL Normal 0.83-4.51 [facility] Comment on above: Performed By: #### B TS, L100.0100 #### [facility] [address] [place], [address] Absolute Neut 9.3 X10 3/uL High 2.0-7.7 [facility] Comment on above: Performed By: #### Marj OLIVEROS, L100.0100 #### [facility] [address] [place], [address] Basophils/100 WBC (Bld) 0.4 % Normal 0-1 [facility] Comment on above: Performed By: #### Marj OLIVEROS, L100.0100 #### [facility] [address] [place], [address] Eosinophils/100 WBC (Bld) 1.4 % Normal 0-5 [facility] Comment on above: Performed By: #### Marj OLIVEROS, L100.0100 #### [facility] [address] [place] [place], [address] Erythrocyte distribution width (RBC) [Ratio] 16.2 % High 11.6-14.6 [facility] Comment on above: Performed By: #### Marj OLIVEROS, L100.0100 #### [facility] [address] [place] [place], [address] Hematocrit (Bld) [Volume fraction] 35.5 % Low 37-47 [facility] Comment on above: Performed By: #### Marj OLIVEROS, L100.0100 #### [facility] [address] [place] [place], [address] Hemoglobin (Bld) [Mass/Vol] 11.0 g/dL Low 12.0-15.0 [facility] Comment on above: Performed By: #### B ARLIN, L100.0100 #### [facility] [address] [place], [address] IG% 1.100 High 0.0-0.9 [facility] Comment on above: Result Comment: IG% - Immature Granulocytes (promyelocytes, myelocytes and metamyelocytes) > 1% indicates that a LEFT SHIFT is Present. Performed By: #### Marj OLIVEROS, L100.0100 #### [facility] [address] [place] [place], [address] Lymphocytes/100 WBC (Bld) 10.7 % Low 19-41 [facility] Comment on above: Performed By: #### Marj OLIVEROS, L100.0100 #### [facility] [address] [place], [address] MCH (RBC) [Entitic mass] 25.5 pg Low 27.0-32.0 [facility] Comment on above: Performed By: #### Marj OLIVEROS, L100.0100 #### [facility] [address] [place], [address] MCHC (RBC) [Mass/Vol] 31.0 g/dL Low 32-36 [facility] Comment on above: Performed By: #### Marj OLIVEROS, L100.0100 #### [facility] [address] [place], [address] MCV (RBC) [Entitic vol] 82.2 fL Normal 81-99 [facility] Comment on above: Performed By: #### Marj OLIVEROS, L100.0100 #### [facility] [address] [place], [address] Monocytes/100 WBC (Bld) 4.9 % Normal 0-10 [facility] Comment on above: Performed By: #### Marj OLIVEROS, L100.0100 #### [facility] [address] [place] [place], [address] Neutrophils/100 WBC (Bld) 81.5 % High 47-70 [facility] Comment on above: Performed By: #### Marj OLIVEROS, L100.0100 #### [facility] [address] [place] [place], [address] Nucleated RBC (Bld) [#/Vol] 0 10*3/uL Normal 0-5 [facility] Comment on above: Performed By: #### Marj OLIVEROS, L100.0100 #### [facility] [address] [place], [address] Platelet mean volume (Bld) [Entitic vol] 11.0 fL Normal 6.2-12.0 [facility] Comment on above: Performed By: #### Marj OLIVEROS, L100.0100 #### [facility] [address] [place], [address] Platelets (Bld) [#/Vol] 302 10*3/uL Normal 150-450 [facility] Comment on above: Performed By: #### Marj OLIVEROS, L100.0100 #### [facility] [address] [place] [place], [address] RBC (Bld) [#/Vol] 4.32 10*6/uL Normal 4.2-5.4 [facility] Comment on above: Performed By: #### Marj OLIVEROS, L100.0100 #### [facility] [address] [place], [address] RDW SD 47.6 fl High 35.1-43.9 [facility] Comment on above: Performed By: #### Marj OLIVEROS, L100.0100 #### [facility] [address] [place], [address] WBC (Bld) [#/Vol] 11.4 10*3/uL High 4.4-11.0 [facility] Comment on above: Performed By: #### Marj OLIVEROS, L100.0100 #### [facility] [address] [place], [address] H AND P Exam - OB/GYNon 05-17 H&P Exam - ENGRAVING PLATE MAKER [facility] Medical Records Department [address] [place] [address] H P Exam - ENGRAVING PLATE MAKER 05/26/24 0821 MR#: [id number] Acct: [id number] Name: GENET MAYBERRY Rep #: [id number] : 2005 18 From: Lelia Vargas CNM PCP: Dr. Greyson Pimentel MD Status:ADM IN Location: [id number] HPI - General General Date of Admission: 05/26/24 HPI Narrative GENET MAYBERRY, is a 18 F who presents for contractions that started last night. She thinks she also may be leaking fluid. 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-employment Home Medications ???Medication ???Instructions ???Recorded ???Last Taken ???Type ondansetron 4 mg disintegrating 4 mg PO Q6H PRN nausea and 07/16/23 Unknown Rx tablet vomiting #20 tabs sulfamethoxazole 800 1 tab PO BID #20 tabs 07/16/23 Unknown Rx mg-trimethoprim 160 mg tablet (Bactrim DS) ferrous sulfate 325 mg (65 mg 325 mg PO QODAY 05/18/24 05/24/24 12:00 History iron) tablet (iron) Allergy/AdvReac Type Severity Reaction Status Date / Time coconut Allergy Food Verified 05/18/24 13:43 Allergy peanut Allergy Food Verified 05/18/24 13:43 Allergy Family History no significant family his Social History current occupational status: student Smoking Status: Current some day smoker tobacco type: e-cigarettes substance use type: does not use NST FHR Rate Baby A Baseline: 140 Variability:: Moderate Accelerations:: 15 x 15 Decelerations:: None NST Reactive:: Yes FHR Category:: Category I Uterine Activity:: TOCO reading every 2-3 minutes ROS Eyes Eyes: Denies blurry vision, change in vision or spots in vision ENT HEENT: Denies dizziness or headache(s) Cardiovascular Cardiovascular: Denies abdominal pain, chest pain or dyspnea Respiratory/Chest Respiratory/Chest: Denies cough, dyspnea, shortness of breath at rest or shortness of breath with exertion Gastrointestinal Gastrointestinal: Denies abdominal pain, diarrhea or vomiting Genitourinary Genitourinary: Denies change in urinary stream, difficulty urinating or dysuria Musculoskeletal Musculoskeletal: Reports none Integumentary Integumentary: Denies rash Neurologic Neurologic: Denies dizziness, headache(s), memory loss or weakness Psychiatric Psychiatric: Reports none Vital Signs Vital Signs Vital Signs: 05/26/24 07:45 05/26/24 07:45 05/26/24 07:45 Temperature Temperature Source Temporal Pulse Rate 96 Respiratory Rate Blood Pressure 121/76 H BP Systolic 121 BP Diastolic 76 Pulse Ox 05/26/24 07:45 05/26/24 07:45 05/26/24 07:45 Temperature Temperature Source Pulse Rate 96 Respiratory Rate 20 H Blood Pressure BP Systolic BP Diastolic Pulse Ox 97 05/26/24 07:45 05/26/24 07:50 05/26/24 07:50 Temperature 97.8 F Temperature Source Pulse Rate 99 Respiratory Rate Blood Pressure BP Systolic BP Diastolic Pulse Ox 97 05/26/24 07:55 05/26/24 07:55 Temperature Temperature Source Pulse Rate 92 Respiratory Rate Blood Pressure BP Systolic BP Diastolic Pulse Ox 98 Weight Weight: 165 lb 5.547 oz Body Mass Index (BMI) 29.2 Physical Exam Const alert, oriented x3 and no apparent distress General Appearance: cooperative Orientation / Consciousness: awake Exam Limitations: no limitations HEENT normocephalic Head and Scalp: normal to inspection Eyes General Eye: normal appearance of both eyes Neck full ROM and no lymphadenopathy Lymph Lymphatic: no lymphadenopathy noted Chest inspection of chest normal Resp normal respiratory effort, normal air movement and clear to auscultation bilaterally Effort and Inspection: able to speak in complete sentences and symmetric chest movement Cardio regular rate and regular rhythm GI normal to inspection, nondistended, normoactive bowel sounds Manual OB Exam: presentation cephalic, dilated 4, effaced 80 and station 0 Amniotic Fluid: clear amniotic fluid Back/Spine normal ROM Extremity full ROM and no calf tenderness Skin no rashes or lesions noted General Skin Exam: no breakdown Neuro oriented x3 and CN's II-XII intact bilaterally Psych mental status grossly normal and thought process normal Labs Labs Labs: Hct 39.3 % (37-46) Hgb 12.9 g/dL (12.0-15.0) Assessment Plan (1) 39 weeks gestation of : (2) Rubella non-immune status, antepartum: (3) Anxiety: (4) Anemia: (5) Hist (more content not included)... Normal [facility] L509.8000on 05-26-2024 Syphilis Abs Non-Reactive Normal [facility] Comment on above: Performed By: #### L 509.8000 #### [facility] [address] [place], [address] Operative Reporton 4 Operative Report [facility] Medical Records Department [address] [place] [address] Operative Report 05/26/24 1840 MR#: [id number] Acct: [id number] Name: GENET MAYBERRY Rep #: [id number] : 2005 18 From: Minnie Murcia MD PCP: Dr. Greyson Pimentel MD Status:ADM IN Location: [id number] Maternal Data Information KAYLA Calculator Estimated Delivery Date Method Current WG Current Estimate 05/27/24 Manual 39w 6d Vaginal Delivery Maternal Presentation Maternal Presentation: Spontaneous Rupture of Membranes Type of Induction: Pitocin Operative Information Date of Procedure: 05/26/24 Pre-Operative Diagnosis: (1) Non reassuring heart tracing Post-Operative Diagnosis: Same Surgery / Procedure Performed: Vacuum Assisted Vaginal Delivery bicycle technician #1: Berna Blank Type of Anesthesia: Epidural Drain: Mcgraw to straight drain Estimated Blood Loss: 300 Findings Description of Procedure: Patient taken to OR when C/C/+1 because she was having recurrent heart rate decelerations. She pushed well to the +2 station. Decision made to use vacuum because of recurrent decelerations. head position confirmed and vacuum placed but would not obtain suction. Patient continued to push well while a new vacuum obtained and with next contraction placed on head and good suction obtained. With good maternal pushing effort descent was noted. Vacuum released. Vacuum replaced and with a gentle pull further descent was noted. Vacuum again released. The vacuum was placed a third time and with good maternal pushing effort the head began to crown. The vacuum popped off (one time). 2nd degree episiotomy cut. With next contraction the head delivered. Tight nuchal cord x2 clamped and cut. With good maternal pushing effort the head gently guided to allow delivery of anterior and posterior shoulders. No excess traction placed on head. The body delivered. Placenta delivered with gentle traction and good uterine tone obtained. Presentation: ABRIL Amniotic Membrane Rupture Type: Spontaneous Amniotic Fluid Description: Clear (with terminal meconuim) Placental Delivery Description: Expressed Placenta Disposition: [facility] Specimen(s) Removed: Placenta Cord Vessel Description: 3 Vessels Cord Entanglement: Around neck x 2, loose Nuchal Cord Compression: With compression A Gender: Male (1 minute): 7 (5 minute): 8 Delayed Cord Clamping: No Post Vaginal Delivery Medications Given After Delivery: IV Pitocin Episiotomy Description: Midline (2nd degree - repaired with 3-0 vicryl) Laceration: None Complication Complications: None 05/26/241853 Cosigner Signature (if applicable): CC: Dr. Greyson Pimentel MD; Dr. Minnie Murcia MD Signed Normal [facility] Type AND Screenon 05-26-2024 Ab SCREEN GEL Negative Normal [facility] Comment on above: Order Comment: Labor Performed By: #### B TS, L100.0100 #### [facility] [address] [place], [address] URINE OB DIP B/Oon 4 Glucose Ql (U) Negative Neg mg/dL [facility] Interpretation and review of laboratory results Normal [facility] Protein.monoclonal (U) [Mass/Vol] Negative Neg mg/dL [facility] Examination level ultrasound on 01-15-2024 Indication anatomy survey Impression REMOTE READ 1. Single, live, intrauterine . 2. biometry is consistent with the established gestational age. 3. Unremarkable anatomic survey. No markers for aneuploidy are noted. 4. Amniotic fluid is normal amount. 5. The placenta is anterior, fundal. 6. Normal transabdominal cervical length without evidence of funneling or dynamic changes. Recommendations Follow up as clinically indicated. Maternal Assessment Height 160 cm Height (ft) 5 ft Height (in) 3 in Physical Exam Initial weight (lb) 115 lb Initial BMI 20.37 kg/m Maternal assessment other: 1 Para 0 Method Transabdominal ultrasound examination. View: Adequate visualization Whitney . Number of fetuses: 1 Dating LMP on: 08/08/2023 GA by LMP 22 w + 6 d KAYLA by LMP: 05/14/2024 GA by prior assessment 21 w + 0 d KAYLA by prior assessment: 05/27/2024 Ultrasound examination on: 01/15/2024 GA by U/S based upon: AC, BPD, Femur, HC GA by U/S 21 w + 0 d KAYLA by U/S: 05/27/2024 Assigned: based on ultrasound (CRL), selected on 11/12/2023 Assigned GA 21 w + 0 d Assigned KAYLA: 05/27/2024 General Evaluation Cardiac activity present. FHR 143 bpm. movements: present. Presentation: cephalic Placenta: Placental site: anterior, fundal Umbilical cord: normal insertion, 3 vessel cord Amniotic fluid: Amount of AF: normal amount. MVP 4.7 cm Growth Overview Exam date GA BPD (mm) HC (mm) AC (mm) FL (mm) HL (mm) EFW (g) 01/15/2024 21w 0d 48.6 36% 179.8 32% 163.5 57% 34.7 61% 33.5 58% 396 48% Biometry Standard BPD 48.6 mm 20w 5d 36% Hadlock OFD 62.7 mm 20w 1d 28% Nicolaides HC 179.8 mm 20w 3d 32% Damaris Cerebellum tr 20.2 mm 19w 3d 12% Hill Nuchal fold 5.2 mm AC 163.5 mm 21w 3d 57% Hadlock Femur 34.7 mm 21w 1d 61% Damaris Humerus 33.5 mm 21w 3d 58% Damaris EFW 396 g 21w 0d 48% Hadlock EFW (lb) 0 lb EFW (oz) 14 oz EFW by: Hadlock (HC-AC-FL) Extended Frame Stripper And Crusher 5.5 mm CM 4.9 mm 39% Nicolaides Extremities / Bony Struc FL / HC 0.19 42% Hadlock Other Structures FHR 143 bpm Anatomy Cranium: normal Lateral ventricles: normal Choroid plexus: normal Midline falx: normal Cavum septi pellucidi: normal Cerebellum: normal Cisterna magna: normal Head / Neck Vermis: normal Neck: normal Nuchal fold: normal Lips: normal Profile: normal Nose: normal Face Maxilla: normal Mandible: normal Orbits: normal Lens: normal 4-chamber view: normal RVOT view: normal LVOT view: normal 3-vessel view: normal [id number] view: normal Heart / Thorax Situs: situs solitus (normal) Aortic arch view: normal Ductal arch view: normal SVC: normal IVC: normal Cardiac axis: normal Rt lung: normal Lt lung: normal Diaphragm: normal Cord insertion: normal Stomach: normal Kidneys: normal Bladder: normal Genitals: normal Abdomen Abdom. wall: normal Cervical spine: normal Thoracic spine: normal Lumbar spine: normal Sacral spine: normal Arms: normal Legs: normal Rt upper arm: normal Rt forearm: normal Rt hand: normal Rt fingers: normal Lt upper arm: normal Lt forearm: normal Lt hand: normal Lt fingers: normal Rt upper leg: normal Rt lower leg: normal Rt foot: normal Lt upper leg: normal Lt lower leg: normal Lt foot: normal Gender: Unspecified Wants to know sex: no Maternal Structures Uterus / Cervix Uterus: Visualized Cervix: Visualized Approach: Transabdominal Cervical length 36.1 mm Ovaries / Tubes / Adnexa Rt ovary: Visualized Lt ovary: Not visualized Performed By: Liza Pleitez, ZEV, RVT Read By: April Buck M.D. MATERNAL MEDICINE [facility] Radiology Study observation (narrative) [facility] INFLUENZA A&B MOLECULAR (POC )on 11-07-2023 Flu A (POCT) Negative Negative [facility] Flu B (POCT) Negative Negative [facility] Procedural Control Valid [facility] UA DIP,URINE HCG (POC)on Beta HCG ( test) Ql (U) Positive Abnormal Negative [facility] Assistant Passenger Locomotive Engineer (POCT) Internal QC OK [facility] Absolute lymphocyte countOrd ered By: Gatito Colin on 07-16-2023 Lymphocytes Auto (Unsp spec) [#/Vol] 1.24 10*3/uL 0.83-4.51 [facility] Basophil percentageOrdered B y: Gatito Colin on 07-16-2023 Basophil percentage 10-25 SEEN /hpf 0-5 [facility] Basophils/100 WBC (Bld) 0.2 % 0-1 [facility] Bilirubin [Mass/Vol] 0.50 mg/dL 0.20-1.00 [facility] Comment on above: For patients on eltr ombopag therapy, use of Dimension [place] TBIL is not recommended. Chloride [Moles/Vol] 105 mmol/L 98-[address] [facility] Eosinophils/100 WBC (Bld) 0.0 % 0-3 [facility] Glucose [Mass/Vol] 118 mg/dL 74-106 [facility] Comment on above: Fasting Glucose resu lt from 100 to 125 mg/dL suggests IMPAIRED HOMEOSTASIS per A.D.A. criteria. Neutrophils (Bld) [#/Vol] 11.1 10*3/uL 2.0-7.7 [facility] Neutrophils/100 WBC (Bld) 81.1 % 34-64 [facility] Potassium [Moles/Vol] 3.2 mmol/L 3.5-5.1 [facility] Protein [Mass/Vol] 8.0 g/dL 6.4-8.2 [facility] Sodium [Moles/Vol] 136 mmol/L 136-145 [facility] WBC (Bld) [#/Vol] 13.7 10*3/uL 4.5-13.0 [facility] Beta hCG serum qualOrdered B y: Gatito Colin on 07-16-2023 Beta HCG ( test) Ql Negative [facility] Bilirubin Test strip Ql (U)O rdered By: Gatito Colin on 07-16-2023 Bilirubin Ql (U) 1 mg/dL Negative [facility] Comment on above: COLOR OF URINE MAY A FFECT DIPSTICK RESULTS. Blood erythrocytes count (nu mber/volume)Ordered By: Gatito Colin on 07-16-2023 RBC (Bld) [#/Vol] 4.66 10*6/uL 4.1-4.8 [facility] Blood hemoglobin measurement (mass/volume)Ordered By: Gatito Colin on 07-16-2023 Hemoglobin (Bld) [Mass/Vol] 12.9 g/dL 12.0-15.0 [facility] Blood lymphocytes/100 leukoc ytesOrdered By: Gatito Colin on 07-16-2023 Lymphocytes/100 WBC (Bld) 9.1 % 25-45 [facility] Blood monocytes/100 leukocyt esOrdered By: Gatito Colin on 07-16-2023 Monocytes/100 WBC (Bld) 9.2 % 3-6 [facility] Blood platelet mean volumeOr dered By: Gatito Colin on 07-16-2023 Platelet mean volume (Bld) [Entitic vol] 10.4 fL 6.2-12.0 [facility] Determination of erythrocyte mean corpuscular volume (MCV)Ordered By: Gatito Colin on 07-16-2023 MCV (RBC) [Entitic vol] 84.3 fL 78-96 [facility] Hematocrit Auto (Bld) [Volum e fraction]Ordered By: Gatito Colin on 07-16-2023 Hematocrit (Bld) [Volume fraction] 39.3 % 37-46 [facility] Influenza virus A and B and SARS-CoV-2 (COVID-19) Ag panel - Upper respiratory specimOrdered By: Gatito Colin on 07-16-2023 SARS-CoV-2 (COVID-19) RNA ANDERSON+probe Ql (Resp) [facility] Ketones Test strip Ql (U)Ord ered By: Gatito Colin on 07-16-2023 Ketones Ql (U) 50 mg/dl Negative [facility] Laboratory - Chemistry and C hemistry - challengeOrdered By: Gatito Colin on 07-16-2023 ALP [Catalytic activity/Vol] 80 U/L 47-119 [facility] ALT [Catalytic activity/Vol] 37 U/L 13-56 [facility] CO2 [Moles/Vol] 24.0 mmol/L 21.0-32.0 [facility] Globulin (S) [Mass/Vol] 4.1 g/dL 2.2-4.2 [facility] Lipase [Catalytic activity/Vol] 16 U/L 13-75 [facility] Comment on above: Please note:LIPASE r evised reference range effective 22. New Lipase methodology. Expected to produce lower values than the previous assay method. NEW Reference Range: 13 - 75 U/L Urea nitrogen/Creatinine [Mass ratio] 8.7 mg/mg 10-20 [facility] Laboratory - Hematology and Cell countsOrdered By: Gatito Colin on 07-16-2023 Erythrocyte distribution width (RBC) [Entitic vol] 40.6 fL 35.1-43.9 [facility] Erythrocyte distribution width (RBC) [Ratio] 13.2 % 11.6-14.6 [facility] Immature granulocytes/100 WBC (Bld) 0.400 % 0.0-0.9 [facility] Comment on above: IG% - Immature Granu locytes (promyelocytes, myelocytes and metamyelocytes) > 1% indicates that a LEFT SHIFT is Present. MCH (RBC) [Entitic mass] 27.7 pg 25.0-35.0 [facility] Nucleated RBC/100 WBC (Bld) [Ratio] 0 % 0-5 [facility] MCHC Auto (RBC) [Mass/Vol]Or dered By: Gatito Colin on 07-16-2023 MCHC (RBC) [Mass/Vol] 32.8 g/dL 32-36 [facility] Mucus LM Ql (Urine sed)Order ed By: Gatito Colin on 07-16-2023 Mucus Ql (Urine sed) 0 SEEN /hpf [facility] Nitrite Test strip Ql (U)Ord ered By: Gatito Colin on 07-16-2023 Nitrite Ql (U) Positive Negative [facility] No Panel InformationOrdered By: Gatito Colin on 07-16-2023 Estimated Creatinine Clearance Calc 89.28 ml/min [facility] Estimated GFR (MDRD) Amer 118 mL/min >60 [facility] Comment on above: GFR Calc Estimated GFR (MDRD) Non-Af Amer 97 mL/min >60 [facility] Comment on above: Non- GFR Calc Platelets bldOrdered By: Arleen Colin on 07-16-2023 Platelets (Bld) [#/Vol] 238 10*3/uL 150-450 [facility] Protein Test strip Ql (U)Ord ered By: Gatito Colin on 07-16-2023 Protein Ql (U) 100 mg/dl Negative [facility] Serum or plasma albumin arsalan urement (mass/volume)Ordered By: Gatito Colin on 07-16-2023 Albumin [Mass/Vol] 3.9 g/dL 3.2-5.0 [facility] Serum or plasma albumin/glob ulin mass ratioOrdered By: Gatito Colin on 07-16-2023 Albumin/Globulin [Mass ratio] 1.0 {ratio} 0.9-2.4 [facility] Serum or plasma calcium arsalan urement (mass/volume)Ordered By: Gatito Colin on 07-16-2023 Calcium [Mass/Vol] 8.9 mg/dL 8.5-10.1 [facility] Serum or plasma creatinine m easurement (mass/volume)Ordered By: Gatito Colin on 07-16-2023 Creatinine [Mass/Vol] 0.81 mg/dL 0.55-1.02 [facility] Comment on above: The validity of the calculated GFR & GFRAA in patients over 70 years has not been determined. Clinical correlation is essential. Serum or plasma urea nitroge n measurement (mass/volume)Ordered By: Gatito Colin on 07-16-2023 Urea nitrogen [Mass/Vol] 7 mg/dL 7-18 [facility] Squamous epithelial cells de tection in urine sediment by light microscopyOrdered By: Gatito Colin on 07-16-2023 Epithelial cells.squamous LM Ql (Urine sed) 5-10 SEEN /hpf 5-10 [facility] Thin prep Papanicolaou smear with manual screeningOrdered By: Gatito Colin on 07-16-2023 Thin prep Papanicolaou smear with manual screening 12 U/L 15-37 [facility] Thin prep Papanicolaou smear with manual screening 7 5-15 [facility] Urine blood detectionOrdered By: Gatito Colin on 07-16-2023 RBC Ql (U) 250 /ul Negative [facility] RBC Ql (U) > 100 SEEN /hpf 0-5 [facility] Urine clarityOrdered By: Arleen Colin on 07-16-2023 Clarity (U) Cloudy Clear [facility] Urine color determinationOrd ered By: Gatito Colin on 07-16-2023 Color (U) Yellow Yellow [facility] Urine glucose detectionOrder ed By: Gatito Colin on 07-16-2023 Glucose Ql (U) Normal mg/dl Normal [facility] Urine leukocyte esterase det ection by dipstickOrdered By: Gatito Colin on 07-16-2023 Leukocyte esterase Test strip Ql (U) 500 /ul Negative [facility] Urine pHOrdered By: Gatito hawkins on 07-16-2023 pH (U) 5.0 [pH] 5.0 - 8.0 [facility] Urine sediment bacteria coun t by microscopy (number/high power field)Ordered By: Gatito Colin on 07-16-2023 Bacteria LM.HPF (Urine sed) [#/Area] 1 /[HPF] None Seen [facility] Urine specific gravity measu rementOrdered By: Gatito Colin on 07-16-2023 Specific gravity (U) [Rel density] 1.020 1.002-1.030 [facility] Urobilinogen Auto test strip Ql (U)Ordered By: Gatito Colin on 07-16-2023 Urobilinogen Ql (U) 4 mg/dl Normal [facility] XR Finger - left AP and Late ral and obliqueon 12-02-2022 Radiology Study observation (narrative) [facility] IMPRESSION: No osseous abnormality identified. Pipe Line Repairer: ANN Transcribe Date/Time: Dec 02 2022 3:56P Dictated by : KANWAL HILL MD This examination was interpreted and the report reviewed and electronically signed by: KANWAL HILL MD on Dec 02 2022 3:56PM [facility] DIVISION OF RADIOLOGY * * *Final Report* * * DATE OF EXAM: Dec 02 2022 3:54PM WOX [id number] - XR DIGIT 3V FRONTAL/LAT/OBL LT / PROCEDURE REASON: Finger injury, left, initial encounter * * * * Physician Interpretation * * * * TECHNIQUE: XR DIGIT 3V FRONTAL/LAT/OBL LT HISTORY: 17 years Female Finger injury/pain, left, initial encounter COMPARISON: None RESULT: The bone alignment and joint spaces are normal. A fracture is not identified. Normal bone mineralization. No soft tissue swelling. DIVISION OF RADIOLOGY Provider, [facility] - 12/02/2022 * * *Final Report* * * DATE OF EXAM: Dec 02 2022 3:54PM WOX [id number] - XR DIGIT 3V FRONTAL/LAT/OBL LT / PROCEDURE REASON: Finger injury, left, initial encounter * * * * Physician Interpretation * * * * TECHNIQUE: XR DIGIT 3V FRONTAL/LAT/OBL LT HISTORY: 17 years Female Finger injury/pain, left, initial encounter COMPARISON: None RESULT: The bone alignment and joint spaces are normal. A fracture is not identified. Normal bone mineralization. No soft tissue swelling. IMPRESSION IMPRESSION: No osseous abnormality identified. Pipe Line Repairer: ANN Transcribe Date/Time: Dec 02 2022 3:56P Dictated by : KANWAL HILL MD This examination was interpreted and the report reviewed and electronically signed by: KANWAL HILL MD on Dec 02 2022 3:56PM EST [facility] XR Finger - left AP and Late ral and obliqueOrdered By: [facility] Provider on 12-02-2022 [facility] STREP A MOLECULAR (POC)on Procedural Control Valid [facility] Strep A (POCT) Negative Negative [facility] 01-05-2021 [facility] Nurse Visit (COVAMD) GENET MAYBERRY ([id number]) 3 F Date Time Provider Department 01/05/21 9:15 AM COVID VACCINE [place] COVAMD During your visit today, we recorded the following information about you: Referring Provider: LUIS CHARLES JR [[id number]] Allergies As of Date: 01/05/2021 (No Known Allergies) Date Reviewed: 12/31/2020 Reviewed by: Susana Coronel Ma - Fully Assessed Order(s):PFIZER SARS-COV-2 VACCINE 2D DOSE APPT [[id number]] Order #: [id number] [employer] COVID-19 VACCINE [[id number]] Order #: [id number] Prescriptions as of 01/05/2021 Sig: ALBUTEROL SULFATE HFA 90 MCG/* Inhale 2 Puffs as instructed * Problem List As Of Date 01/05/2021 Noted Resolved WCC (well child check) [Z00.129] 09/01/2014 Encounter Status:Closed by [facility]URE [facility] on 01/06/21 [facility] 12-15-2020 [facility] Nurse Visit (COVAMD) GENET MAYBERRY ([id number]) 3 F Date Time Provider Department 12/15/20 9:05 AM COVID VACCINE CARPENTER COVAMD During your visit today, we recorded the following information about you: Referring Provider: LUIS CHARLES JR [[id number]] Allergies As of Date: 12/15/2020 (No Known Allergies) Date Reviewed: 10/22/2020 Reviewed by: Susana Coronel Ma - Fully Assessed Order(s):[employer] COVID-19 VACCINE [[id number]] Order #: [id number] PFIZER SARS-COV-2 VACCINE 2D DOSE APPT [[id number]] Order #: [id number] FUTURE Prescriptions as of 12/15/2020 Sig: ALBUTEROL SULFATE HFA 90 MCG/* Inhale 2 Puffs as instructed * Patient not taking: Reported on 10/22/2020 Problem List As Of Date 12/15/2020 Noted Resolved WCC (well child check) [Z00.129] 09/01/2014 Encounter Status:Closed by [facility] on 12/16/20 [facility] Vital Signs Date Time Vital Sign Value Performing Clinician Facility 05-15-2025 17:19-0400 Body temperature 97.7 [degF] Dr. Greyson Pimentel MD Work Phone: [facility] 05-15-2025 17:19-0400 Diastolic blood pressure 78 mm[Hg] Dr. Greyson Pimentel MD Work Phone: [facility] 05-15-2025 17:19-0400 Heart rate 64 /min Dr. Greyson Pimentel MD Work Phone: [facility] 05-15-2025 17:19-0400 Respiratory rate 18 /min Dr. Greyson Pimentel MD Work Phone: [facility] 05-15-2025 17:19-0400 SaO2% (BldA) [Mass fraction] 99 % Dr. Greyson Pimentel MD Work Phone: [facility] 05-15-2025 17:19-0400 Systolic blood pressure 126 mm[Hg] Dr. Greyson Pimentel MD Work Phone: [facility] 05-15-2025 13:07-0400 Body height 160.[address] Greyson Pimentel MD Work Phone: [phone] [place] [address] 05-15-2025 13:07-0400 Body mass index (BMI) [Ratio] 21.7 kg/m2 Dr. Greyson Pimentel MD Work Phone: [phone])[phone] [place] [address] 05-15-2025 13:07-0400 Body weight 55.[address] Greyson Pimentel MD Work Phone: [phone])[phone] [place] [address] 11-03-2024 11:51-0400 Diastolic blood pressure 70 mm[Hg] Bobby Haury J[employer] INSPECT[employer] Work Phone: [phone] [place] [address] 11-03-2024 11:51-0400 Systolic blood pressure 110 mm[Hg] Bobby Haury JET INSPECTOR[employer] Work Phone: [facility] 11-03-2024 11:30-0400 Body weight 65.77 kg Bobby Haury JET INSPECTOR[employer] Work Phone: [facility] 08-26-2024 15:09-0500 Body weight 69.85 kg Bobby Haury JET INSPECTOR[employer] Work Phone: [facility] 08-26-2024 15:09-0500 Diastolic blood pressure 70 mm[Hg] Bobby Haury JET INSPECTOR[employer] Work Phone: [facility] 08-26-2024 15:09-0500 Systolic blood pressure 120 mm[Hg] Bobby Haury J[employer] INSPECTOR[employer] Work Phone: [facility] 07-22-2024 11:52-0500 Diastolic blood pressure 60 mm[Hg] Bobby Haury JET INSPECTOR[employer] Work Phone: [facility] 07-22-2024 11:52-0500 Systolic blood pressure 110 mm[Hg] Bobby Haury JET INSPECTOR[employer] Work Phone: [facility] 07-22-2024 11:27-0500 Body weight 67.59 kg Bobby Haury J[employer] INSPECTOR[employer] Work Phone: [facility] 07-04-2024 15:10-0500 Body weight 67.5 kg Sy Pennington MD Work Phone: [facility] 07-04-2024 15:10-0500 Diastolic blood pressure 60 mm[Hg] Sy Pennington MD Work Phone: [facility] 07-04-2024 15:10-0500 Systolic blood pressure 100 mm[Hg] Sy Pennington MD Work Phone: [facility] 05-12-2024 14:50-0400 Body weight 72.94 kg Sy Pennington MD Work Phone: [facility] 05-12-2024 14:50-0400 Diastolic blood pressure 60 mm[Hg] Sy Pennington MD Work Phone: [facility] 05-12-2024 14:50-0400 Systolic blood pressure 98 mm[Hg] Sy Pennington MD Work Phone: [facility] 05-05-2024 14:30-0400 Body weight 70.76 kg Bobby Haury J[employer] INSPECT[employer] Work Phone: [facility] 05-05-2024 14:30-0400 Diastolic blood pressure 60 mm[Hg] Bobby Haury JET INSPECTOR[employer] Work Phone: [facility] 05-05-2024 14:30-0400 Heart rate 88 /min Bobby Haury JET INSPECTOR[employer] Work Phone: [facility] 05-05-2024 14:30-0400 Respiratory rate 14 /min Bobby Haury J[employer] INSPECTOR[employer] Work Phone: [facility] 05-05-2024 14:30-0400 SaO2% (BldA) [Mass fraction] 97 % Bobby Haury JET INSPECTOR[employer] Work Phone: [facility] 05-05-2024 14:30-0400 Systolic blood pressure 100 mm[Hg] Bobby Chu ROSALIND Work Phone: [facility] 04-28-2024 16:24-0400 Body weight 70.49 kg Sy Pennington MD Work Phone: [facility] 04-28-2024 16:24-0400 Diastolic blood pressure 66 mm[Hg] Sy Pennington MD Work Phone: [facility] 04-28-2024 16:24-0400 Systolic blood pressure 108 mm[Hg] Sy Pennington MD Work Phone: [facility] 04-06-2024 15:26-0400 Body weight 67.13 kg Xena Kelly MD Work Phone: [facility] 04-06-2024 15:26-0400 Diastolic blood pressure 70 mm[Hg] Xena Kelly MD Work Phone: [facility] 04-06-2024 15:26-0400 Systolic blood pressure 110 mm[Hg] Xena Kelly MD Work Phone: [facility] 01-06-2024 16:27-0400 Body weight 59.42 kg Syeda Benavidez MD Work Phone: [facility] 01-06-2024 16:27-0400 Diastolic blood pressure 60 mm[Hg] Syeda Benavidez MD Work Phone: [facility] 01-06-2024 16:27-0400 Systolic blood pressure 108 mm[Hg] Syeda Benavidez MD Work Phone: [facility] 12-09-2023 09:56-0400 Body weight 55.97 kg Concepcion Moralez MD Work Phone: [facility] 12-09-2023 09:56-0400 Diastolic blood pressure 60 mm[Hg] Concepcion Moralez MD Work Phone: [facility] 12-09-2023 09:56-0400 Systolic blood pressure 98 mm[Hg] Concepcion Moralez MD Work Phone: [facility] 11-07-2023 12:26-0400 Body temperature 98.91 [degF] Stanislav Thompson J[employer] INSPECTOR[employer] Work Phone: [facility] 11-07-2023 12:26-0400 Body weight 56 kg Stanislav Thompson J[employer] INSPECTOR[employer] Work Phone: [facility] 11-07-2023 12:26-0400 Diastolic blood pressure 64 mm[Hg] Stanislav Thompson JET INSPECTOR[employer] Work Phone: [facility] 11-07-2023 12:26-0400 Heart rate 89 /min Stanislav Thompson J[employer] INSPECT[employer] Work Phone: [facility] 11-07-2023 12:26-0400 Respiratory rate 18 /min Stanislav Thompson JET INSPECTOR[employer] Work Phone: [facility] 11-07-2023 12:26-0400 SaO2% (BldA) [Mass fraction] 100 % Stanislav Thompson J[employer] INSPECTOR[employer] Work Phone: [facility] 11-07-2023 12:26-0400 Systolic blood pressure 104 mm[Hg] Stanislav Thompson J[employer] INSPECT[employer] Work Phone: [facility] 07-16-2023 19:54-0500 Body height 160.02 cm [facility] 07-16-2023 19:54-0500 Body mass index (BMI) [Percentile] Per age and sex 23.4 % [facility] 07-16-2023 19:54-0500 Body mass index (BMI) [Ratio] 19.5 kg/m2 [facility] 07-16-2023 19:54-0500 Body temperature 100.3 [degF] [facility] 07-16-2023 19:54-0500 Body weight 50.21 kg [facility] 07-16-2023 19:54-0500 Diastolic blood pressure 63 mm[Hg] [facility] 07-16-2023 19:54-0500 Heart rate 104 /min [facility] 07-16-2023 19:54-0500 Respiratory rate 16 /min [facility] 07-16-2023 19:54-0500 SaO2% (BldA) [Mass fraction] 99 % [facility] 07-16-2023 19:54-0500 Systolic blood pressure 107 mm[Hg] [facility] 02-07-2023 20:05-0400 Body height 157.48 cm [facility] 02-07-2023 20:05-0400 Body mass index (BMI) [Percentile] Per age and sex 64.3 % [facility] 02-07-2023 20:05-0400 Body mass index (BMI) [Ratio] 22.6 kg/m2 [facility] 02-07-2023 20:05-0400 Body temperature 97.3 [degF] [facility] 02-07-2023 20:05-0400 Body weight 56.29 kg [facility] 02-07-2023 20:05-0400 Diastolic blood pressure 72 mm[Hg] [facility] 02-07-2023 20:05-0400 Heart rate 112 /min [facility] 02-07-2023 20:05-0400 Respiratory rate 16 /min [facility] 02-07-2023 20:05-0400 SaO2% (BldA) [Mass fraction] 98 % [facility] 02-07-2023 20:05-0400 Systolic blood pressure 108 mm[Hg] [facility] 10-16-2022 12:16-0500 Body temperature 98.91 [degF] Keila Praisler-Wood J[employer] INSPECTOR[employer] Work Phone: [facility] 10-16-2022 12:16-0500 Body weight 58.7 kg Keila Praisler-Wood J[employer] INSPECTOR[employer] Work Phone: [facility] 10-16-2022 12:16-0500 Diastolic blood pressure 74 mm[Hg] Keila Praisler-Wood J[employer] INSPECTOR[employer] Work Phone: [facility] 10-16-2022 12:16-0500 Heart rate 94 /min Keila Praisler-Wood J[employer] INSPECT[employer] Work Phone: [facility] 10-16-2022 12:16-0500 Respiratory rate 20 /min Keila Hairston J[employer] INSPECTOR[employer] Work Phone: [facility] 10-16-2022 12:16-0500 SaO2% (BldA) [Mass fraction] 99 % Keila Hairston JET INSPECTOR[employer] Work Phone: [facility] 10-16-2022 12:16-0500 Systolic blood pressure 100 mm[Hg] Keila Hairston JET INSPECTOR[employer] Work Phone: [facility] 01-16-2022 16:15-0400 Body height 159.8 cm Loy Barrera MD Work Phone: [facility] 01-16-2022 16:15-0400 Body mass index (BMI) [Percentile] Per age and sex 77.95 % Loy Barrera MD Work Phone: [facility] 01-16-2022 16:15-0400 Body temperature 97.7 [degF] Loy Barrera MD Work Phone: [facility] 01-16-2022 16:15-0400 Body weight 61.01 kg Loy Barrera MD Work Phone: [facility] 01-16-2022 16:15-0400 Diastolic blood pressure 66 mm[Hg] Loy Barrera MD Work Phone: [facility] 01-16-2022 16:15-0400 Heart rate 88 /min Loy Barrera MD Work Phone: [facility] 01-16-2022 16:15-0400 Respiratory rate 18 /min Loy Barrera MD Work Phone: [facility] 01-16-2022 16:15-0400 Systolic blood pressure 104 mm[Hg] Loy Barrera MD Work Phone: [facility] 11-14-2021 17:14-0400 Body height 160.4 cm Justine Hebert JET INSPECTOR.[employer] Work Phone: [facility] 11-14-2021 17:14-0400 Body mass index (BMI) [Percentile] Per age and sex 74.26 % Justine Hebert APRN.[employer] Work Phone: [facility] 11-14-2021 17:14-0400 Body temperature 98.91 [degF] Justine Hebert JET INSPECTOR.[employer] Work Phone: [facility] 11-14-2021 17:14-0400 Body weight 59.88 kg Justine Hebert JET INSPECTOR.[employer] Work Phone: [facility] 11-14-2021 17:14-0400 Diastolic blood pressure 60 mm[Hg] Justine Hebert JET INSPECTOR.[employer] Work Phone: [facility] 11-14-2021 17:14-0400 Heart rate 88 /min Justine Hebert JET INSPECTOR.[employer] Work Phone: [facility] 11-14-2021 17:14-0400 Respiratory rate 16 /min Justine Hebert JET INSPECTOR.[employer] Work Phone: [facility] 11-14-2021 17:14-0400 Systolic blood pressure 102 mm[Hg] Justine Hebert JET INSPECTOR.[employer] Work Phone: [facility] Encounters Encounter Date Encounter Type Care Provider Facility Start: 05-15-2025 End: 05-15-2025 Emergency department patient visit Dr. Greyson Pimentel MD Work Phone: -Emergency Department Work Phone: Start: 05-15-2025 End: 05-15-2025 ambulatory GREYSON PIMENTEL Facility:[facility] Start: 11-03-2024 End: 11-03-2024 ambulatory GREYSON PIMENTEL Facility:[facility] Start: 11-03-2024 End: 11-03-2024 Patient encounter procedure Bobby Chu APRN.[employer] Work Phone: OB/Gynecology Comment on above: Encounter for IUD re moval (Primary Dx) Start: 10-28-2024 End: 10-28-2024 Telephone encounter Bobby Chu APRN.[employer] Work Phone: OB/Gynecology Comment on above: Orders Start: 10-05-2024 End: 10-05-2024 ambulatory Zhen Alvarenga [place]: 08-28-2024 End: 09-05-2024 Telephone encounter Sonja Singh APRN.[employer] [facility] Comment on above: Results Start: 08-26-2024 End: 08-26-2024 ambulatory GREYSON PIMENTEL Facility:[facility] Start: 08-26-2024 End: 08-26-2024 Patient encounter procedure Bobby Chu APRN.[employer] Work Phone: OB/Gynecology Comment on above: Surveillance of prev iously prescribed intrauterine contraceptive device (Primary Dx); Encounter for routine checking of intrauterine contraceptive device (IUD); Abnormal uterine bleeding; Vaginal discharge Start: 07-22-2024 End: 07-22-2024 ambulatory GREYSON PIMENTEL Facility:[facility] Start: 07-22-2024 End: 07-22-2024 Patient encounter procedure Bobby Chu APRN.[employer] Work Phone: OB/Gynecology Comment on above: Encounter for IUD in sertion (Primary Dx) Start: 07-04-2024 End: 07-04-2024 ambulatory GREYSON Tayo MYRESMARGARITO Facility:[facility] Start: 07-04-2024 End: 07-04-2024 Patient encounter procedure Sy Pennington MD Work Phone: OB/Gynecology Comment on above: care and examination (Primary Dx); Encounter for initial prescription of intrauterine contraceptive device (IUD) Start: 06-22-2024 End: 06-22-2024 Telephone encounter Bobby Chu APRN.[employer] Work Phone: OB/Gynecology Comment on above: Breast Pump Start: 06-11-2024 End: 06-11-2024 ambulatory Shara Phipps RN NURSE [employer] Comment on above: Patient Update Start: 05-29-2024 End: 05-29-2024 ambulatory Iliana Aguilera NP [place]: 05-27-2024 End: 05-27-2024 ambulatory Minnie Murcia MD Work Phone: OB/Gynecology Comment on above: Ob Delivery Note Start: 05-26-2024 End: 05-28-2024 Evaluation and management of inpatient Minnie Murcia Facility:[facility] Start: 05-18-2024 End: 05-18-2024 Telephone encounter Concepcion Moralez MD Work Phone: OB/Gynecology Comment on above: Contractions Start: 05-12-2024 End: 05-12-2024 Patient encounter procedure Sy Pennington MD Work Phone: OB/Gynecology Comment on above: 37 weeks gestation o f (Primary Dx); Supervision of normal first teen in third trimester Start: 05-09-2024 End: 05-16-2024 Telephone encounter Tamra PABLO Navigation Comment on above: Patient Update Start: 05-05-2024 End: 05-05-2024 Patient encounter procedure Bobby Chu APRN.[employer] Work Phone: OB/Gynecology Comment on above: Supervision of jared l first teen in third trimester (Primary Dx); 36 weeks gestation of ; Anemia complicating , third trimester; Rubella non-immune status, antepartum; Intermittent asthma, well controlled Start: 04-28-2024 End: 04-28-2024 Patient encounter procedure Sy Pennington MD Work Phone: OB/Gynecology Comment on above: High risk teen pregn shannan in third trimester (Primary Dx); 35 weeks gestation of ; Anemia during in third trimester Start: 04-08-2024 End: 04-08-2024 Telephone encounter Bobby Chu APRN.[employer] Work Phone: OB/Gynecology Comment on above: Breast Pump Start: 04-07-2024 End: 04-13-2024 Telephone encounter Tamra PABLO Navigation Start: 04-06-2024 End: 04-06-2024 Patient encounter procedure Xena Kelly MD Work Phone: OB/Gynecology Comment on above: High risk teen pregn shannan in third trimester (Primary Dx); Limited care in third trimester; Poor social situation; Need for DTaP vaccine; Need for vaccination; 32 weeks gestation of Start: 01-15-2024 End: 01-15-2024 Patient encounter procedure [facility] Work Phone: OB/Gynecology Comment on above: Encounter for anatomic survey (Primary Dx); Screening, , for anatomic survey; 21 weeks gestation of Start: 01-06-2024 End: 01-06-2024 Patient encounter procedure Syeda Benavidez MD Work Phone: OB/Gynecology Comment on above: 19 weeks gestation o f (Primary Dx); Encounter for supervision of normal first in second trimester Start: 12-09-2023 End: 12-09-2023 Patient encounter procedure Concepcion Moralez MD Work Phone: OB/Gynecology Comment on above: Supervision of jared l first teen in second trimester (Primary Dx); Screening, , for anatomic survey; 15 weeks gestation of Start: 11-07-2023 End: 11-07-2023 Office outpatient visit 15 minutes Stanislav Thompson APRN.CNP Work Phone: [facility] Comment on above: Missed period (Prima ry Dx); Viral illness; Positive test; Left lower quadrant abdominal pain Start: 07-16-2023 End: 07-16-2023 [facility] Start: 06-22-2023 Telephone encounter Greyson holley MD Work Phone: [facility] [place] Comment on above: Release Of Medical R ecords Start: 02-07-2023 End: 02-07-2023 [facility] Start: 01-19-2023 End: 01-19-2023 Patient encounter procedure Neda Molina PA-C Work Phone: [facility] Comment on above: Chest pain, unspecif ied type (Primary Dx) Start: 12-02-2022 End: 12-02-2022 Subsequent hospital visit by physician [facility] Work Phone: Radiology Comment on above: Finger injury, left, initial encounter [S69.92XA] Start: 10-17-2022 Telephone encounter [place] Work Phone: [facility] Comment on above: Results Start: 10-16-2022 End: 10-16-2022 Patient encounter procedure Keila Hairston JET INSPECTOR.[employer] Work Phone: [facility] Comment on above: Sore throat (Primary Dx); Viral URI with cough Start: 02-03-2022 Refill Greyson Pimentel MD Work Phone: [facility] Comment on above: Refill Request Start: 01-16-2022 End: 01-16-2022 Patient encounter procedure Loy Barrera MD Work Phone: [facility] Comment on above: Routine physical exa mination (Primary Dx) Start: 01-16-2022 End: 01-16-2022 Physical examination Loy Barrera MD Work Phone: [facility] [place] Start: 12-25-2021 Refill Justine aviles JET INSPECTOR.[employer] Work Phone: [facility] [place] Comment on above: Refill Request Start: 11-14-2021 End: 11-14-2021 Patient encounter procedure Justine Hebert JET INSPECTOR[employer] Work Phone: [facility] [place] Comment on above: Bilateral low back p ain, unspecified chronicity, unspecified whether sciatica present (Primary Dx); Intermittent asthma, well controlled; Encounter for immunization Start: 09-01-2014 Patient encounter status Zachariah Hebert JET INSPECTOR.[employer] Work Phone: [facility] Work Phone: Procedures Date Procedure Procedure Detail Performing Clinician Start: 05-15-2025 Ct abdomen & pelvis w/contrast material Dr. Greyson Pimentel MD Work Phone: Start: 05-15-[address] Greyson Pimentel MD Work Phone: Start: 07-22-2024 UA DIP,URINE HCG (POC) Bobby Chu JET INSPECTOR[employer] Work Phone: Start: 05-12-2024 Urnls dip stick/tabl et rgnt non-auto w/o micrscp Concepcion Kirt MD Work Phone: Start: 01-15-2024 Us preg uterus after 1st trimest 08/17 gestation Concepcion Moralez MD Work Phone: Start: 11-07-2023 INFLUENZA A&B MOLECU LAR (POC) Stanislav Thompson JET INSPECTOR[employer] Work Phone: Start: 11-07-2023 UA DIP,URINE HCG (POC) [facility] Provider Start: 07-16-2023 Computed tomography of abdomen and pelvis with intravenous contrast Start: 07-16-2023 SARS-CoV-2 & FLU Ant igen (Rapid) Start: 12-02-2022 Radex fingr minimum 2 views Neli Montes JET INSPECTOR[employer] Work Phone: Start: 10-16-2022 STREP A MOLECULAR (POC) Keila Hairston JET INSPECTOR[employer] Work Phone: Start: 01-16-2022 Adult depression scr eening assessment Loy Barrera MD Work Phone: Start: 04-18-2021 Adult depression scr eening assessment Justine Hebert [employer] INSPECTOR[employer] Work Phone: Plan of Treatment Date Care Activity Detail Author Start: 04-06-2034 Urine microalbumin profile DTaP,Tdap,Td Vaccine (8 - Td or Tdap) [facility] Start: 04-18-2031 Urine microalbumin profile [facility] Start: 08-28-2025 End: 08-28-2025 Patient encounter procedure 08/28/2025 3:15 PM EST Office Visit OB/Gynecology [address] [place] [address] Bobby Chu JET INSPECTOR.[facility] [address] [place] [id number] Annual OB/Gynecology Comment on above: Annual Start: 05-15-2025 [facility] Start: 12-08-2024 End: 12-08-2024 Patient encounter procedure 12/08/2024 1:30 PM EDT Office Visit OB/Gynecology [address] [place] [address] Bobby Chu APRN.[employer] [address] [place] [address] ocp follow up OB/Gynecology Comment on above: ocp follow up Start: 11-11-2024 GC (Gonorrhea) Scree giancarlo () GC (Gonorrhea) Screening () [facility] Start: 11-11-2024 Screening for Chlamy mary carmen trachomatis Chlamydia Screening () [facility] Start: 11-03-2024 End: 11-03-2024 Patient encounter procedure 11/03/2024 11:45 AM EDT Office Visit OB/Gynecology [address] [address] Bobby Chu APRN.[employer] [address] [place] [address] IUD removal OB/Gynecology Comment on above: IUD removal Start: 09-01-2024 End: 09-01-2024 ambulatory 09/01/2024 3:30 PM EST Procedure OB/Gynecology [address] [address] [facility] [address] [address] Encounter for routine checking of intrauterine contraceptive device (IUD) [Z30.431] OB/Gynecology Comment on above: Encounter for routin e checking of intrauterine contraceptive device (IUD) [Z30.431] Start: 08-26-2024 End: 08-26-2024 Patient encounter procedure 08/26/2024 3:15 PM EST Office Visit OB/Gynecology [address] [place] [address] Bobby Chu [employer]N.[employer] [address] [address] IUD f/up OB/Gynecology Comment on above: IUD f/up Start: 08-26-2024 End: 11-25-2024 CBC panel - Blood by Automated count COMPLETE BLOOD COUNT Lab Routine Abnormal uterine bleeding Expected: 08/26/2024, Expires: 11/25/2024 [facility] Comment on above: Expected: 08/26/2024 , Expires: 11/25/2024 Start: 08-26-2024 End: 11-25-2024 Choriogonadotropin.beta subunit [Units/volume] in Serum or Plasma HCG QUANTITATIVE Lab Routine Abnormal uterine bleeding Expected: 08/26/2024, Expires: 11/25/2024 [facility] Comment on above: Expected: 08/26/2024 , Expires: 11/25/2024 Start: 08-26-2024 End: 08-26-2025 US Pelvis PELVIC US [facility] Anc Imaging Routine Encounter for routine checking of intrauterine contraceptive device (IUD) Expected: 08/26/2024, Expires: 08/26/2025 [facility] Work Phone: Comment on above: Expected: 08/26/2024 , Expires: 08/26/2025 Start: 07-07-2024 End: 07-07-2024 Patient encounter procedure 07/07/2024 10:10 AM EST Office Visit OB/Gynecology [address] [place] [address] Concepcion Moralez MD [address] [place] [address] IUD insert OB/Gynecology Comment on above: IUD insert Start: 05-26-2024 End: 05-26-2024 Patient encounter procedure 05/26/2024 3:15 PM EDT Routine Office Visit OB/Gynecology [address] [place] [address] Lelia Vargas APRN.CN [address] [place] [address] OB OB/Gynecology Comment on above: OB Start: 05-19-2024 End: 05-19-2024 Patient encounter procedure 05/19/2024 3:10 PM EDT Routine Office Visit OB/Gynecology [address] [address] Xena Lopez MD [address] [place] [place] [address] OB OB/Gynecology Comment on above: OB Start: 05-12-2024 End: 05-12-2024 Patient encounter procedure 05/12/2024 3:40 PM EDT Routine Office Visit OB/Gynecology [address] [address] Concepcion Moralez MD [address] [place] [address] OB OB/Gynecology Comment on above: OB Start: 05-05-2024 End: 05-05-2024 Patient encounter procedure 05/05/2024 2:30 PM EDT Routine Office Visit OB/Gynecology [address] [address] Bobby Chu [employer]N.[employer] [address] [place] [address] OB OB/Gynecology Comment on above: OB Start: 05-05-2024 End: 08-04-2024 CBC panel - Blood by Automated count COMPLETE BLOOD COUNT Lab Routine Supervision of normal first teen in third trimester 36 weeks gestation of Anemia complicating , third trimester Rubella non-immune status, antepartum Expected: 05/05/2024, Expires: 08/04/2024 [facility] Work Phone: Comment on above: Expected: 05/05/2024 , Expires: 08/04/2024 Start: 04-20-2024 End: 04-20-2024 Patient encounter procedure 04/20/2024 3:15 PM EDT Routine Office Visit OB/Gynecology [address] [address] Lelia Vargas APRN.CNM [address] [place] [address] OB OB/Gynecology Comment on above: OB Start: 04-17-2024 Covid-19 Vaccine ( season) Covid-19 Vaccine ( season) [facility] Start: 04-17-2024 Covid-19 Vaccine () Covid-19 Vaccine () [facility] Start: 04-17-2024 Influenza vaccination [facility] Start: 04-17-2024 RSV Vaccine (1 - Ris k 1-dose series) RSV Vaccine (1 - Risk 1-dose series) [facility] Start: 04-07-2024 End: 04-07-2024 ambulatory 04/07/2024 10:30 AM EDT Results Only [facility] [address] [place] [address] Glucose Test [facility] Comment on above: Glucose Test Start: 04-06-2024 End: 07-06-2024 CBC W Auto Differential panel - Blood COMPLETE BLOOD COUNT AND DIFFERENTIAL Lab Routine High risk teen in third trimester 32 weeks gestation of Expected: 04/06/2024, Expires: 07/06/2024 [facility] Comment on above: Expected: 04/06/2024 , Expires: 07/06/2024 Start: 04-06-2024 End: 07-06-2024 GESTATIONAL GLUCOSE SCREEN, 1-HOUR, 50 GRAM, NON-FASTING GESTATIONAL GLUCOSE SCREEN, 1-HOUR, 50 GRAM, NON-FASTING Lab Routine High risk teen in third trimester 32 weeks gestation of Expected: 04/06/2024, Expires: 07/06/2024 [facility] Comment on above: Expected: 04/06/2024 , Expires: 07/06/2024 Start: 04-06-2024 End: 07-06-2024 SYPHILIS TOTAL W/REFLEX SYPHILIS TOTAL W/REFLEX Lab Routine High risk teen in third trimester 32 weeks gestation of Expected: 04/06/2024, Expires: 07/06/2024 [facility] Comment on above: Expected: 04/06/2024 , Expires: 07/06/2024 Start: 02-02-2024 End: 02-02-2024 Patient encounter procedure 02/02/2024 4:30 PM EDT Routine Office Visit OB/Gynecology [address] [place] [address] Xena Lopez MD [address] [place] [address] OB OB/Gynecology Comment on above: OB Start: 01-20-2024 ANNUAL PCP TEAM COVER CREASER LEMUEL DISEASE VISIT ANNUAL PCP TEAM CHRONIC DISEASE VISIT [facility] Start: 01-15-2024 End: 01-15-2024 Patient encounter procedure 01/15/2024 3:00 PM EDT Routine Office Visit OB/Gynecology [address] [place] [address] ANATOMY OB/Gynecology Comment on above: ANATOMY Start: 01-08-2024 End: 12-08-2024 OBSTETRIC ULTRASOUND [facility] OBSTETRIC ULTRASOUND [facility] Anc Imaging Routine Screening, , for anatomic survey Expected: 01/08/2024, Expires: 12/08/2024 [facility] Work Phone: Comment on above: Expected: 01/08/2024 , Expires: 12/08/2024 Start: 01-06-2024 End: 01-06-2024 Patient encounter procedure 01/06/2024 4:20 PM EDT Routine Office Visit OB/Gynecology [address] [place] [address] Syeda Benavidez MD [address] [place] [place] [address] OB OB/Gynecology Comment on above: OB Start: 08-17-2023 Behavioral Health Screening Behavioral Health Screening [facility] Start: 08-17-2023 Depression Assessment Depression Ass essment [facility] Start: 07-16-2023 [facility] Start: 07-16-2023 [facility] Start: 07-16-2023 Bacteria identified in Urine by Culture Urine Culture [facility] Start: 04-17-2023 Covid-19 Vaccine ( season) Covid-19 Vaccine () [facility] Start: 04-17-2023 Influenza vaccination C [facility] Start: 01-16-2023 Adult depression screening assessment DEPRESSION SCREENING [facility] Start: 2022 CHLAMYDIA SCREENING () CHLAMYDIA SCREENING () [facility] Start: 2022 Depression Screening Depression Scre ening [facility] Start: 2022 GC (GONORRHEA) SCREE GIANCARLO () GC (GONORRHEA) SCREENING () [facility] Start: 2022 HEPATITIS C SCREENING HEPATITIS C [facility] Start: 2022 Hepatitis C screening Hepatitis C [facility] Start: 2022 HIV SCREENING HIV SCREENING [facility] Start: 2022 HIV screening HIV Screening [facility] Start: 2022 Screening for Chlamy mary carmen trachomatis Chlamydia Screening () [facility] Start: 2022 SPIROMETRY SPIROMETRY [facility] Start: 08-17-2022 DEPRESSION ASSESSMENT DEPRESSION ASS ESSMENT [facility] Start: 04-18-2022 Adult depression screening assessment DEPRESSION SCREENING [facility] Start: 04-18-2022 ASTHMA CONTROL TEST ASTHMA CONTROL T EST [facility] Start: 04-17-2022 Influenza vaccination C [facility] Start: 03-16-2022 HPV VACCINE (3 - 3-d ose series) HPV VACCINE (3 - 3-dose series) [facility] Start: 10-16-2021 Meningococcal B Vacc ine (2 of 2 - Bexsero SCDM 2-dose series) Meningococcal B Vaccine (2 of 2 - Bexsero SCDM 2-dose series) [facility] Start: 06-07-2021 COVID-19 VACCINE (3 - Booster for Pfizer series) COVID-19 VACCINE (3 - Booster for Pfizer series) [facility] Start: 05-16-2021 Meningococcal B Vacc ine: Consider Based On Risk (2 of 2 - Risk Bexsero 2-dose series) Meningococcal B Vaccine: Consider Based On Risk (2 of 2 - Risk Bexsero 2-dose series) [facility] Start: 05-16-2021 MENINGOCOCCAL B: Consider based on risk (2 of 2 - Risk Bexsero 2-dose series) MENINGOCOCCAL B: Consider based on risk (2 of 2 - Risk Bexsero 2-dose series) [facility] Start: 04-17-2021 Influenza vaccination INFLUENZA (#1) [facility] Start: 03-02-2021 COVID-19 VACCINE (3 - Booster for Pfizer series) COVID-19 VACCINE (3 - Booster for Pfizer series) [facility] Start: 11-20-2019 CHLAMYDIA SCREENING (<18) CHLAMYDIA SCREENING (<18) [facility] Start: 11-20-2019 GC (GONORRHEA) SCREE GIANCARLO (<18) GC (GONORRHEA) SCREENING (<18) [facility] Start: 2018 PEDS TO ADULT TRANSI TION ANNUAL ASSESSMENT PEDS TO ADULT TRANSITION ANNUAL ASSESSMENT [facility] Start: 2006 ASTHMA ACTION PLAN ASTHMA ACTION RUBEN N [facility] BACTERIAL VAGINOSIS NAAT BACTERI AL VAGINOSIS NAAT Lab Routine Vaginal discharge 08/26/2024 3:33 PM EST [facility] CLEMENTINE/TRICHOMONAS NAAT CLEMENTINE /TRICHOMONAS NAAT Lab Routine Vaginal discharge 08/26/2024 3:33 PM [facility] Chlamydia trachomatis+Neisseria gonorrhoeae DNA [Presence] in Unspecified specimen by ANDERSON with probe detection GONORRHEA/CHLAMYDIA NAAT Lab Routine care and examination Encounter for initial prescription of intrauterine contraceptive device (IUD) Ordered: 07/04/2024 [facility] Comment on above: Ordered: 07/04/2024 COVID, FLU A/B + RSV , ROUTINE COVID, FLU A/B + RSV, ROUTINE Microbiology Routine Viral URI with cough 10/16/2022 1:55 PM EST [facility] Work Phone: Insertion intrauteri ne device iud INSERT INTRAUTERINE DEVICE Procedures Routine care and examination Encounter for initial prescription of intrauterine contraceptive device (IUD) Ordered: 07/04/2024 [facility] Work Phone: Comment on above: Ordered: 07/04/2024 Insertion intrauteri ne device iud INSERT INTRAUTERINE DEVICE Procedures Routine Encounter for IUD insertion Ordered: 07/22/2024 [facility] Work Phone: Comment on above: Ordered: 07/22/2024 Patient Education [facility] Work Phone: Patient referral [facility] Work Phone: Removal intrauterine device iud REMOVE INTRAUTERINE DEVICE Procedures Routine Encounter for IUD removal Ordered: 10/28/2024 [facility] Work Phone: Comment on above: Ordered: 10/28/2024 Removal intrauterine device iud REMOVE INTRAUTERINE DEVICE Procedures Routine Encounter for IUD removal Ordered: 11/03/2024 [facility] Work Phone: Comment on above: Ordered: 11/03/2024 ROUTINE FLU A/B + RSV ROUTINE FL U A/B + RSV Lab Routine Viral URI with cough 10/16/2022 1:55 PM EST [employer] [facility] [employer] Work Phone: ROUTINE, GR OUP B STREP PCR ROUTINE, GROUP B STREP PCR Microbiology Routine 35 weeks gestation of High risk teen in third trimester Ordered: 04/28/2024 [facility] Work Phone: Comment on above: Ordered: 04/28/2024 SARS-CoV-2 (COVID-19 ) RNA [Presence] in Respiratory specimen by ANDERSON with probe detection 2019 [employer] Microbiology Routine Viral URI with cough 10/16/2022 1:55 PM EST [employer] Work Phone: URINE OB DIP B/O URINE OB DIP B/ O Lab Routine 19 weeks gestation of Encounter for supervision of normal first in second trimester Ordered: 01/06/2024 [facility] [employer] Work Phone: Comment on above: Ordered: 01/06/2024 URINE OB DIP B/O URINE OB DIP B/ O Lab Routine 32 weeks gestation of Ordered: 04/06/2024 [facility] Work Phone: Comment on above: Ordered: 04/06/2024 URINE OB DIP B/O URINE OB DIP B/ O Lab Routine Supervision of normal first teen in third trimester 36 weeks gestation of Anemia complicating , third trimester Rubella non-immune status, antepartum Ordered: 05/05/2024 [facility] Comment on above: Ordered: 05/05/2024 Urine test visual color cmprsn meths HCG QUAL UR B/O Lab Routine Missed period Ordered: 11/07/2023 [facility] Work Phone: Comment on above: Ordered: 11/07/2023 [facility] Immunizations Immunization Date Immunization Notes Care Provider Pierre stokes 04-06-2024 tetanus toxoid, redu alvin diphtheria toxoid, and acellular pertussis vaccine, adsorbed Xena Kelly MD Work Phone: [facility] 11-14-2021 Human Papillomavirus 9-valent vaccine Justine Hebert APRN.[employer] Work Phone: [facility] 04-18-2021 Human Papillomavirus 9-valent vaccine Justine Hebert APRN.[employer] Work Phone: [facility] Work Phone: 04-18-2021 meningococcal B vacc ine, recombinant, OMV, adjuvanted Justine Hebert APRN.[employer] Work Phone: [facility] Work Phone: 04-18-2021 meningococcal polysaccharide (groups A, C, Y and W-135) diphtheria toxoid conjugate vaccine (MCV4P) Justine Hebert APRN.[employer] Work Phone: [facility] Work Phone: 04-18-2021 tetanus toxoid, redu alvin diphtheria toxoid, and acellular pertussis vaccine, adsorbed Justine Hebert JET INSPECTOR.[employer] Work Phone: [facility] Work Phone: 01-05-2021 COVID-19 vaccine, ag e 12+ yr (PFIZER-BIONTECH - PURPLE TOP) Justine Hebert APRN.[employer] Work Phone: [facility] Work Phone: 12-15-2020 COVID-19 vaccine, ag e 12+ yr (PFIZER-BIONTECH - PURPLE TOP) Justine Hebert APRN.[employer] Work Phone: [facility] Work Phone: 08-31-2014 influenza, live, intranasal, quadrivalent Justine Hebert JET INSPECTOR.[facility] Work Phone: [facility] 08-31-2014 influenza virus vacc ine, unspecified formulation Greyson Pimentel MD Work Phone: [facility] 06-03-2010 diphtheria, tetanus toxoids and acellular pertussis vaccine Justine Hebert JET INSPECTOR.[facility] Work Phone: [facility] Work Phone: 06-03-2010 influenza virus vacc ine, unspecified formulation Justine Hebert JET INSPECTOR.[facility] Work Phone: [facility] Work Phone: 06-03-2010 measles, mumps and rubella virus vaccine Justine Hebert JET INSPECTOR.[facility] Work Phone: [facility] Work Phone: 06-03-2010 poliovirus vaccine, inactivated Justine Hebert JET INSPECTOR.[facility] Work Phone: [facility] Work Phone: 06-03-2010 varicella virus vaccine No Hebert JET INSPECTOR.[facility] Work Phone: [facility] Work Phone: 05-26-2006 diphtheria, tetanus toxoids and acellular pertussis vaccine Justine Hebert JET INSPECTOR.[facility] Work Phone: [facility] Work Phone: 05-26-2006 haemophilus influenz ae type b vaccine, HbOC conjugate Justine Hebert JET INSPECTOR.[employer] Work Phone: [facility] Work Phone: 05-26-2006 pneumococcal conjuga te vaccine, 7 valent Justine Hebert JET INSPECTOR.[facility] Work Phone: [facility] Work Phone: 12-02-2005 measles, mumps and rubella virus vaccine Justine Hebert JET INSPECTOR.[facility] Work Phone: [facility] Work Phone: 12-02-2005 poliovirus vaccine, inactivated Justine Hebert JET INSPECTOR.[facility] Work Phone: [facility] Work Phone: 12-02-2005 varicella virus vaccine No Hebert JET INSPECTOR.[employer] Work Phone: [facility] Work Phone: 07-14-2005 diphtheria, tetanus toxoids and acellular pertussis vaccine Justine Hebert JET INSPECTOR.[employer] Work Phone: [facility] Work Phone: 07-14-2005 haemophilus influenz ae type b vaccine, HbOC conjugate Justine Hebert JET INSPECTOR.[facility] Work Phone: [facility] Work Phone: 07-14-2005 hepatitis B vaccine, pediatric or pediatric/adolescent dosage Justine Hebert JET INSPECTOR.[facility] Work Phone: [facility] Work Phone: 07-14-2005 pneumococcal conjuga te vaccine, 7 valent Justine Hebert JET INSPECTOR.[facility] Work Phone: [facility] Work Phone: 04-02-2005 diphtheria, tetanus toxoids and acellular pertussis vaccine Justine Hebert JET INSPECTOR.[facility] Work Phone: [facility] Work Phone: 04-02-2005 haemophilus influenz ae type b vaccine, HbOC conjugate Justine Hebert JET INSPECTOR.[employer] Work Phone: [facility] Work Phone: 04-02-2005 poliovirus vaccine, inactivated Justine Hebert JET INSPECTOR.[employer] Work Phone: [facility] Work Phone: 04-01-2005 pneumococcal conjuga te vaccine, 7 valent Justine Hebert JET INSPECTOR.[employer] Work Phone: [facility] Work Phone: 01-17-2005 diphtheria, tetanus toxoids and acellular pertussis vaccine Justine Hebert JET INSPECTOR.[employer] Work Phone: [facility] Work Phone: 01-17-2005 haemophilus influenz ae type b vaccine, HbOC conjugate Justine Hebert JET INSPECTOR.[employer] Work Phone: [facility] Work Phone: 01-17-2005 hepatitis B vaccine, pediatric or pediatric/adolescent dosage Justine Hebert JET INSPECTOR.[employer] Work Phone: [facility] Work Phone: 01-17-2005 pneumococcal conjuga te vaccine, 7 valent Justine Hebert JET INSPECTOR.[employer] Work Phone: [facility] Work Phone: 01-17-2005 poliovirus vaccine, inactivated Justine Hebert JET INSPECTOR.[employer] Work Phone: [facility] Work Phone: 2004 hepatitis B vaccine, pediatric or pediatric/adolescent dosage Justine Hebert JET INSPECTOR.[facility] Work Phone: [facility] Work Phone: Payers Date Payer Category Payer Self-pay [id number] 2024 Private Health Insurance HUMANA HUMANA MEDICAID [facility] [id number] 2024-Present [address] [address] [place] [address] Medicaid [id number] 2023 Unknown [employer] [facility] [id number] 2023-Present [phone] [address] [place] [address] PPO [id number] 2022 Medicaid [id number] 2017 Medicaid [place] [employer] [place] [employer] [id number] 2017-Present [phone] [address] [place] [address] Medicaid [id number] 2009 Unknown [id number] Unknown [id number] 62 Unknown [id number] 62 Unknown [id number] 62 Unknown [id number] 62 Unknown [id number] 62 Unknown [id number] 62 Social History Date Type Detail Facility Start: 10-16-2022 Tobacco smoking status NHIS Never smoked tobacco [facility] Work Phone: Start: 11-14-2021 End: 11-03-2024 Alcohol intake Current non-drinker of alcohol (finding) [facility] Start: 04-18-2021 End: 10-16-2022 Tobacco Comment outside -mom [facility] Start: 2005 Sex Assigned At Not on file [facility] Start: 11-03-2021 End: 01-16-2022 Exposure to SARS-CoV-2 (event) Not sure [facility] Start: 01-16-2022 History SDOH Physica l Activity DPW 4 [facility] Start: 01-16-2022 History SDOH Physica l Activity MPS 5 [facility] Start: 01-16-2022 History SDOH Food Worry 1 [facility] Start: 01-16-2022 History SDOH Transport Med 2 [facility] History of tobacco use Passive smoker [facility] Start: 10-16-2022 Tobacco use and exposure Smokeless tobacco non-user [facility] Start: 02-07-2023 End: 07-16-2023 Tobacco smoking status NHIS Unknown if ever smoked [facility] Start: 09-18-2019 With Family [facility] Start: 09-18-2019 Non-smoker [facility] Start: 2005 Sex Assigned At Female [facility] Start: 01-19-2023 End: 07-04-2024 History of Social function [facility] Start: 01-19-2023 End: 07-04-2024 Tobacco use panel [facility] How hard is it for you to pay for the very basics like food, housing, medical care, and heating Not hard at all [facility] (I/We) worried whether (my/our) food would run out before (I/we) got money to buy more. Never true [facility] In the past 12 months, was there a time when you were not able to pay the mortgage or rent on time? No [facility] Start: 11-11-2023 Education 11 [facility] Start: 09-04-2023 [facility] Start: 05-15-2025 Tobacco smoking status NHIS Smokes tobacco daily (finding) [facility] NEGATED: Highlighted row [facility] Functional Status Date Assessment Result Facility 08-31-2014 Are you deaf, or do you have serious difficulty hearing No 08/31/2014 3:59 PM Ivy Amador Ma No [facility] 08-31-2014 Are you blind, or do you have serious difficulty seeing, even when wearing glasses No 08/31/2014 3:59 PM Ivy Amador Ma No [facility] 08-31-2014 Do you have serious difficulty walking or climbing stairs No 08/31/2014 3:59 PM Ivy Amador Ma No [facility] 08-31-2014 Do you have difficul ty dressing or bathing No 08/31/2014 3:59 PM Ivy Amador Ma No [facility] Mental Status Date Assessment Result Facility 08-31-2014 Because of a physica l, mental, or emotional condition, do you have serious difficulty concentrating, remembering, or making decisions No 08/31/2014 3:59 PM EST Rhianna oHlguin, Ivy Larson No [facility] Clinical Notes 11-14-2021 to 05-15-2025 Note Date & Type Note Facility 05-15-2025 Discharge summary [facility] 05-15-2025 Radiology Diagnostic study note [facility] Imaging Services [address] [place] [address] Abdomen/Pelvis W IV Cont ONLY MR#: [id number] Acct: [id number] Name: GENET MAYBERRY Rep #: [id number] : 2005 F 19 From: Jonh Tam MD PCP: Dr. Greyson Pimentel MD Status: REG E R Study:Abdomen/Pelvis W IV Cont ONLY Date of E xam: 05/15/25 Exam# [id number] Ordering Dr: Jamison Marrero MD PROCEDURE: ABDOMEN/PELVIS W IV CONT ONLY 05/15/2025 REASON FOR EXAM: RIGHT LOWER QUADRANT ABDOMINAL PAIN TECHNIQUE: Procedure Code: [id number] Modality: CT Procedure: ABDOMEN/PELVIS W IV CONT ONLY Coronal and Sagittal reconstruction series were provided. CONTRAST: Isovue 370 VOLUME: 75 mL One or more dose reduction techniques were used (e.g., Automated exposure control, adjustment of the mA and/or kV according to patient size, use of iterative reconstruction technique. RADIATION DOSE SUMMARY: CTDlvol: 18 mGy DLP: 267 mGycm COMPARISON: July 16, 2023 FINDINGS: Lung bases: Clear Liver: Focal fat at the interlobar fissure. Gallbladder: Normal Spleen: Normal Pancreas: Normal Adrenals: Normal Kidneys: Normal Bladder: Normal Reproductive Organs: Uterus is anteverted. Left ovary is normal. Right ovary is associated with a circumscribed cyst measuring 2.8 x 3.3 cm. Bowel: Stomach, small bowel and colon are unremarkable. Appendix: Normal Lymph nodes: Normal Vasculature: Normal Peritoneum / Retroperitoneum: No free air, free fluid or mass. Bones: Normal CT/Abdomen/Pelvis W IV Cont ONLY IMPRESSION: 1. Right ovarian cyst is statistically benign. Correlate with midcycle pain. ACR White Paper recommendations (Winters, et al. J Am Andrey Radiol 2020;17:248-254) suggest the following: No further imaging required. 2. Appendix is unremarkable. Reading Location: [id number] CC: Dr. Greyson Pimentel MD; Dr. Les Marrero MD ~ Pipe Line Repairer: Signed [facility] 05-15-2025 Discharge summary Note Date/Time May 15, 2025 5:03pm [facility] Medical Records Department [address] [place] [address] Emergency Department Summary 05/15/25 MR#: [id number] Acct: [id number] Name: GENET MAYBERRY Rep #:[id number] : 2005 19 From: Les Marrero MD PCP: Dr. Greyson Pimentel MD Status:REG E R Location: ED HPI History of Present Illness Chief Complaint: Abd Pain Detail of Chief Complaint: Pain inferior McBurney's point that started at 12 midnight Informant: patient Onset/Context/Timing Onset: Today and Hours Context: Sudden Onset Timing: Continuous Quality: Pain Location: Inferior McBurney's point Current Severity: Mild Maximum Severity: Moderate Worsened by: When the nurse practitioner at urgent care pushed her abdomen Relieved by: Leaving it alone Associated Symptoms Associated Symptoms: Nausea, no anorexia, elevated temperature 100 Narrative Narrative: Patient is a 19-year-old female. She is sexually active. Her last menses is unknown. She states last evening her significant other wanted to have intercourse. She states that she was in too much discomfort. She does report temperature of 100.0 ?F. She does endorse nausea. She is not anorexic. She states the pain is made worse when the nurse practitioner at urgent care pushed on it. She denies dysuria, frequency, urgency or hematuria. She denies historyof renal ureteral lithiasis. She denies history of ovarian cyst, endometriosis,STI. Prior similar symptoms: No Recent Illness/Hospitalization: No PFSH PFSH Medical History Family history of hearing loss at age younger than 7 years Physical exam, pre-employment Asthma Home Medications ?Medication ?Instructions ?Recorded ?Last Taken ?Type NK 05/15/25 Unknown History Allergy/AdvReac Type Severity Reaction Status Date / Time coconut Allergy Food Verified 05/15/25 13:07 Allergy peanut Allergy Food Verified 05/15/25 13:07 Allergy Social History current occupational status: student Smoking Status: Current every day smoker tobacco type: e-cigarettes substance use type: does not use ROS ROS ED Constitutional Constitutional ED: Reports fever(s); Denies chills, subjective, sweats or weightloss Eyes Eyes: Denies blurry vision or change in vision ENT ENT ED: Denies ear pain, rhinorrhea or sore throat Cardiovascular Cardiovascular: Denies chest pain, orthopnea, palpitations, paroxysmal nocturnaldyspnea or racing heartbeat Respiratory/Chest Respiratory/Chest: Denies cough, dyspnea, dyspnea on exertion, orthopnea or paroxysmal nocturnal dyspnea Gastrointestinal Gastrointestinal: Reports abdominal pain, nausea and other Details: No diarrhea recently. ; Denies constipation, diarrhea, melena or vomiting Genitourinary Genitourinary ED: Denies dysuria, hematuria or urinary frequency Musculoskeletal Musculoskeletal: Denies arthralgias, back pain or myalgias Integumentary Denies rash Endocrine Endocrinology: Denies cold intolerance or heat intolerance Hematologic/Lymphatic Hematologic/Lymphatic: Reports systems reviewed and no addt'l complaints, exceptas documented EXAM Physical Exam Const Vital Signs: 05/15/25 13:07 05/15/25 15:15 Temperature 99.2 F H Temperature Source Oral Pulse Rate 82 78 Respiratory Rate 16 14 Blood Pressure 109/70 101/58 L Blood Pressure Mean 83 72 Pulse Ox 99 98 Oxygen Delivery Method Room Air Room Air Positive well nourished and well developed General Appearance ED: well developed and NAD; Negative for pallor HEENT Reports moist mucous membranes HEENT Narrative: Head is atraumatic and normocephalic. Ears normal. Nares patent Eyes PERRL and EOMs intact bilaterally General Eye ED: Negative for pale conjunctiva or scleral icterus Neck no lymphadenopathy, supple and no JVD Chest Wall inspection of chest normal and palpation of chest normal Resp normal respiratory effort and clear to auscultation bilaterally Cardio regular rate, regular rhythm, S1 normal heart sound, S2 normal heart sound and no murmurs GI normal to inspection, nondistended, normoactive bowel sounds, non-distended and no masses; Negative for non-tender or hepatosplenomegaly Palpation: soft and tender RLQ, McBurney's point, periumbilical, suprapubic, Obturator sign, Psoas sign and Rovsing's sign Back/Spine no CVA tenderness Extremity normal to inspection Neuro oriented x3 and CN's II-XII intact bilaterally Sensorium / Orientation: alert Psych mental status grossly normal Skin no rashes or lesions noted, no wounds and skin turgor normal General Skin Exam: elasticity normal; Negative for jaundice or pallor MDM MDM MDM Narrative Medical decision making narrative: With right lower quadrant abdominal pain need to evaluate for appendicitis, regional enteritis, mesenteric adenitis, abdominal pain unknown etiology, gynecologic pathology needs to be considered i.e. ovarian cyst. Lab Data Attestation: I reviewed the patient's lab results. Lab results narrative: CBC is unremarkable. Comprehensive metabolic panel is normal. test was negative Labs: Laboratory Results - last 24 hr 05/15/25 13:05 WBC 5.9 RBC 4.86 Hgb 13.2 Hct 40.8 MCV 84.0 MCH 27.2 MCHC 32.4 RDW Std Deviation 44.8 H RDW Coeff of Ruthie 14.6 Plt Count 319 MPV 9.8 Immature Gran % (Auto) 0.300 Neut % (Auto) 57.1 Lymph % (Auto) 32.9 Garden % (Auto) 8.9 Eos % (Auto) 0.3 Baso % (Auto) 0.5 Absolute Neuts (auto) 3.4 Absolute Lymphs (auto) 1.93 Nucleated RBC % 0 Sodium 140 Potassium 3.8 Chloride 104 Carbon Dioxide 22.1 Anion Gap 14 BUN 9 Creatinine 0.67 L Estim Creat Clear Calc 110.80 Est GFR (MDRD) Non-Af 128 BUN/Creatinine Ratio 13.8 Glucose 83 Calcium 9.3 Total Bilirubin 0.32 AST 13 ALT 10 Alkaline Phosphatase 73 Total Protein 7.6 Albumin 4.4 Globulin 3.2 Albumin/Globulin Ratio 1.4 Lipase 22 Serum , Qual NEGATIVE Radiography Diagnostic Testing: Clinical Impression(s) from Imaging Studies Abdomen/Pelvis CT 05/15/25 15:37 IMPRESSION: 1. Right ovarian cyst is statistically benign. Correlate with midcycle pain. ACR White Paper recommendations (Winters, et al. J Am Andrey Radiol 2020;17:248-254) suggest the following: No further imaging required. 2. Appendix is unremarkable. Reading Location: [facility] Treatment and Re-Evaluation :: Patient was informed of results. She also was informed of recommendation by radiologist based on white paper. Discharge Plan Triage Chief Complaint: Abd Pain ED Provider: Les Marrero Dx/Rx/DC Orders Clinical Impression: Abdominal pain, right lower quadrant, Cyst of right ovary, Elevated temperature Instructions: ED Ovarian Cyst Prescriptions: No Action NK Primary Care Provider: Greyson Pimentel Referrals: Greyson Pimentel MD [Primary Care Provider, Pediatrics] Activity Restrictions/Additional Instructions: 1. If you develop severe pain, nausea and vomiting return to the emergency department because this may represent ovarian torsion 2. Follow-up with your ENGRAVING PLATE MAKER in the next 5 to 7 days Print Language: [place] What to do if you have Problems For any increased pain, shortness of breath, bleeding, nausea or vomiting, chestpain, or any unexpected problems, contact your Primary Care Provider. Call [facility] ([phone]) or report to the closest Emergency Room. Call 911 if necessary. 05/15/25 1703 <Electronically signed by Les Marrero MD> Cosigner Signature (if applicable): CC: Dr. Greyson Pimentel MD ~ Signed [facility] Work Phone: [phone] NoteHNO ID: [id number] Author: HEIDE MURCIA APRN.[employer] Service: ? Author Type: Nurse Practitioner Type: [...] abdominal pain. Patient agreeable will take her self.[facility]03-20-2025 Instructions* Patient Instructions* Bobby Chu APRN.[employer] - 11/03/2024 11:51 AM EDT Oral Contraceptives: The Pill Beginning the Pill [...] the 28 day pack is that you don t have to keep track of when you stopped the pill. There are a group of 28 day pills that contain 24 active pills and only 4 placebo pills. Theseare formulated to give you a watch repair person period. First day of next menstrual period start OR Quick Start (starting the day you get the pill) when reasonably certain not . Use 7 day back up contraception. OR Thursday start. Use back up contraception for 7 days. Thursday start can result in no period on weekends. Read your information packet that comes with the pills. Pill Benefits The pill is the most popular method of reversible control being used today. Millions of womenrely on oral contraceptives as their control method. It is important to have an examination by your physician to determine if the pill is safe for you. There are several advantages associated with the pill: it is 97-98% effective when used correctly; may improve acne; periods are more regularand less painful; there is less iron deficiency anemia in pill users. senior living use is associated with a decreased incidence of ovarian and uterine cancer. There is also no evidence that the pill increases the incidence of any cancer. How Oral Contraceptives Work Oral contraceptives come in two varieties. One is the combination pill which contains both estrogenand progesterone. Combination pills are considered 98-99% effective [...] It is best used for women who can t take estrogen. This type of pill is slightly less effective than the combination pill in preventing preg yannick. It is VERY important to take the progesterone only pill at the same time every day. Oral contraceptives prevent ovulation (release of an egg from the ovary) by suppressing the pituitary gland s action. The pill does NOT prevent sexually transmitted disease. Obtaining a Prescription It is important to see your doctor before starting oral contraceptives so that you can have a full medical history taken and a physical examination given. Certain medical conditions may make the pillinappropriate for you, therefore it is very important to be honest and as complete as possible withthe information you share with your doctor. The [...] and mild fluid retention. There is no intermodal dispatcher weight gain with the use of the [...] see if there is any physical cause andpossibly change to another control pill. Problems: Missed [...] pill for the rest of the month. Oryou can stop the pill and start a completely new pack of pills the next Thursday. You must use another form of control with the pill for at least the first two weeks of the new pack. You re ill and you have been vomiting or [...] such as phenytoin, carbamazepine, phenobarbital, topiramate and somemedications for HIV. Let your doctor know if you start taking any of these medications while on thepill. Symptoms to Notify Your Doctor with Immediately: [...] to your chart for necessary health information. [facility] NoteHNO ID: [id number] Author: BOBBY CHU APRN.CNP Service: ? Author Type: Nurse Practitioner Type: Progress Notes Filed: 11/03/2024 11:52 Note Text: Retail Reset Merchandiser offered: Patient declines. Genet presents for removal [...] in 1-2 months to assess OCP use. Bobby Chu APRN.[facility]03-20-2025 History of Present illness Narrative* Bobby Chu APRN.[facility] - 11/03/2024 11:26 AM EDT Retail Reset Merchandiser offered: Patient declines. Genet presents for removal [...] procedure match the source document(s) (e.g. consent, H&P, associated studies [imaging, pathology]) match the intended [...] in 1-2 months to assess OCP use. Bobby Chu APRN.[employer] [facility] Telephone encounter Note * Telephone Encounter - Liza Kam RN - 10/28/2024 1:39 PM EDT Order attached to upcoming appointment. Liza Kam RN [facility]03-14-2025 Miscellaneous Notes* Telephone Encounter - Liza Kam RN - 10/28/2024 1:39 PM EDT Order attached to upcoming appointment. Liza Kam RN * Telephone Encounter - Delma Hernandez RN - 10/28/2024 11:40 AM EDT Patient calling in requesting to have IUD [...] Please file order to attach to appt. Delma Hernandez RN [facility] Telephone encounter Note * Telephone Encounter - Delma Hernandez RN - 10/28/2024 11:40 AM EDT Patient calling in requesting to have IUD [...] Please file order to attach to appt. Delma Hernandez RN [facility]01-20-2025 Telephone encounter Note* Telephone Encounter - Concepcion Agudelo RN - 09/05/2024 11:43 AM EST Spoke with patient. Notified of results. Concepcion Agudelo RN [facility]01-20-2025 Miscellaneous Notes* Telephone Encounter - Concepcion Agudelo RN - 09/05/2024 11:43 AM EST Spoke with patient. Notified of results. Concepcion Agudelo RN * Telephone Encounter - Sonja Singh APRN.CNP - 09/05/2024 11:27 AM EST Pt never seen results. Please check with her if she pick up operator the prescription or not. Sonja Singh APRN.CNP documented [facility] Telephone encounter Note * Telephone Encounter - Sonja Singh APRN.CNP - 09/05/2024 11:27 AM EST Pt never seen results. Please check with her if she pick up operator the prescription or not. Sonja Singh APRN.CNP [facility]01-10-2025 NoteHNO ID: [id number] Author: BOBBY CHU APRN.XIAO Service: ? Author Type: Nurse Practitioner Type: Progress Notes Filed: 08/26/2024 15:22 Note Text: Retail Reset Merchandiser offered: Patient declines. Genet Mayberry presents today for IUD check. She had a Mirena placed on 07/22/2024. She has had bleeding since placement, ranging from light to heavy. REVIEW OF SYSTEMS: CARPENTER REPAIRER: Negative for abnormal vaginal discharge + irregular bleeding SENSITIVE EXAM: The sensitive examination was discussed with the Patient or Patient's Authorized Aerospace Project Manager. As applicable, any other physician, advance practice provider, medical student, or other health professional student that will be observing or involved in the sensitive examination for educational or training purposes was discussed with the Patient or Authorized Aerospace Project Manager. The Patient or Authorized Aerospace Project Manager has agreed to proceed with the sensitive [...] CBC and HCG ordered. Bleeding precautions reviewed. Bobby Chu APRN.XIAO Medical Decision Making: Problems: Low: Acute, uncomplicated illness or injury Data: Unique test(s) ordered: 3+ Risk: Minimal: Minimal risk from testing/treatment Medical Decision Making Level: 3 [facility] History of Present illness Narrative* Bobby Chu APRN.XIAO - 08/26/2024 3:04 PM EST Retail Reset Merchandiser offered: Patient declines. Genet Mayberry presents today for IUD check. She had a Mirena placed on 07/22/2024. She has had bleeding since placement, ranging from light to heavy. REVIEW OF SYSTEMS: CARPENTER REPAIRER: Negative for abnormal vaginal discharge + irregular bleeding SENSITIVE EXAM: The sensitive examination was discussed with the Patient or Patient's Authorized Aerospace Project Manager. As applicable, any other physician, advance practice provider, medical student, or other health professional student that will be observing or involved in the sensitive examination for educational or training purposes was discussed with the Patient or Authorized Aerospace Project Manager. The Patient or Authorized Aerospace Project Manager has agreed to proceed with the sensitive [...] CBC and HCG ordered. Bleeding precautions reviewed. Bobby Chu APRN.CNP Medical Decision Making: Problems: Low: Acute, uncomplicated illness or injury Data: Unique test(s) ordered: 3+ Risk: Minimal: Minimal risk from testing/treatment Medical Decision Making Level: 3 - Low documented in this encounterWood [facility] Hospital12-06-2024 Instructions* Patient Instructions* Ester Haro MA - 07/22/2024 11:20 AM EST POST IUD INSTRUCTIONS You may have irregular [...] any additional questions, please contact the office. documented in this encounterWood [facility] Hospital12-06-2024 NoteHNO ID: [id number] Author: BOBBY CHU APRN.XIAO Service: ? Author Type: Nurse Practitioner Type: Progress Notes Filed: 07/22/2024 12:28 Note Text: Retail Reset Merchandiser offered: Patient declines. Genet presents today for [...] IUD source: office provided IUD lot #: [id number] Exp date: 09/16/2026 [facility] 91926-824-02 UNIVERSAL PROTOCOL / SAFETY CHECKLIST Procedure to [...] Plan of Care Visit completed when applicable. Bobby Chu APRN.XIAO The cervix was prepped with betadine. The [...] were reviewed. Follow up in one month. Bobby [facility]12-06-[facility]24 History of Present illness Narrative* Bobby Chu APRN.CNP - 07/22/2024 11:19 AM EST Retail Reset Merchandiser offered: Patient declines. Genet presents today for [...] IUD source: office provided IUD lot #: [id number] Exp date: 09/16/2026 [facility] [id number] UNIVERSAL PROTOCOL / SAFETY CHECKLIST Procedure to [...] Plan of Care Visit completed when applicable. Bobby Chu APRN.CNP The cervix was prepped with [...] patient was told to check the string monthlyfor accurate placement. Bleeding expectations were reviewed. Follow up in one month. Bobby Chu APRN.CNP documented in this encounterWood County Hospital11-18-2024 Note* Addendum Note - Sy Pennington MD - 07/04/2024 4:55 PM ESTAddended by: SY PENNINGTON on: 07/04/2024 04:55 PM Modules accepted: Orders [facility]11-18-[facility] Miscellaneous Notes* Addendum Note - Sy Pennington MD - 07/04/2024 4:55 PM ESTAddended by: SY PENNINGTON on: 07/04/2024 04:55 PM Modules accepted: Orders * Addendum Note - Audrey Miller MA - 07/04/2024 4:53 PM ESTAddended by: AUDREY MILLER on: 07/04/2024 04:53 PM Modules accepted: Orders documented in this encounterWood County Hospital11-18-2024 Note* Addendum Note - Audrey Miller MA - 07/04/2024 4:53 PM ESTAddended by: AUDREY MILLER on: 07/04/2024 04:53 PM Modules accepted: Orders [facility]11-[facility]24 NoteHNO ID: [id number] Author: SY PENNINGTON MD Service: ? Author Type: Physician Type: Progress Notes Filed: 07/04/2024 15:28 Note Text: Retail Reset Merchandiser offered: Patient declines. VISIT Genet Mayberry is a 18 year old year old here for visit. Delivery Summary: Vag Vacuum 05/26/2024 ROS/ Recovery: Feeding: Bottle feeding problems: None Menses since delivery: spotting Menstrual pattern prior to : Irregular periods [place] since delivery: Not resumed Depression: denies symptoms [...] discussed with the Patient or Patient's Authorized Aerospace Project Manager. As applicable, any other physician, advance practice provider, medical student, or other health professional student that will be observing or involved in the sensitive examination for educational or training purposes was discussed with the Patient or Authorized Aerospace Project Manager. The Patient or Authorized Aerospace Project Manager has agreed to proceed with the sensitive [...] external genitalia normal, normal Bartholin's glands, urethra, [place]'s glands, no vulvar lesions, no cervical lesions, good vaginal support, physiologic discharge present, normal appearing perineal body and perianal region BIMANUAL: uterus normal size, shape and consistency, no adnexal masses, and non-tender NEURO: exam grossly non-focal EXTREMITIES: normal ASSESSMENT AND PLAN: 18 year old status post Vacuum with normal course. Contraception plan: IUD - Mirena Follow up: RTC for insertion of IUD [facility] History of Present illness Narrative* Sy Pennington MD - 07/04/2024 3:05 PM EST Retail Reset Merchandiser offered: Patient declines. VISIT Genet Mayberry is a 18 year old year old here for visit. Delivery Summary: Vag Vacuum 05/26/2024 ROS/ Recovery: Feeding: Bottle feeding problems: None Menses since delivery: spotting Menstrual pattern prior to : Irregular periods [place] since delivery: Not resumed Depression: denies symptoms of depression. OB Depression and Anxiety Screening- This Encounter (since 07/03/2024) Over the past 2 weeks have you felt down, depressed, or hopeless? Negative Over the past two weeks, have you felt little interest or pleasure in doing things? Negative Feeling nervous, anxious or on edge [...] discussed with the Patient or Patient's Authorized Aerospace Project Manager. As applicable, any other physician, advance practice provider, medical student, or other health professional student that will be observing or involved in the sensitive examination for educational or training purposes was discussed with the Patient or Authorized Aerospace Project Manager. The Patient or Authorized Aerospace Project Manager has agreed to proceed with the sensitive [...] external genitalia normal, normal Bartholin's glands, urethra, [place]'s glands, no vulvar lesions, no cervical lesions, good vaginal support, physiologic discharge present, normal appearing perineal body and perianal region BIMANUAL: uterus normal size, shape and consistency, no adnexal masses, and non-tender NEURO: exam grossly non-focal EXTREMITIES: normal ASSESSMENT AND PLAN: 18 year old status post Vacuum with normal course. Contraception plan: IUD - Mirena Follow up: RTC for insertion of IUD Sy Pennington DO documented in this encounterWood County Hospital11-06-2024 Telephone encounter Note * Telephone Encounter - Delma Hernandez RN - 06/22/2024 4:31 PM EST Order signed and faxed to [address] Delma Hernandez RN [facility]11-06-2024 Miscellaneous Notes* Telephone Encounter - Delma Hernandez RN - 06/22/2024 4:31 PM EST Order signed and faxed to [address] Delma Hernandez RN * Telephone Encounter - Concepcion Agudelo RN - 06/22/2024 2:44 PM EST Received breast pump RX from [address] To to sign. Concepcion Agudelo RN documented in this encounterWood County Hospital11-06-2024 Telephone encounter Note * Telephone Encounter - Concepcion Agudelo RN - 06/22/2024 2:44 PM EST Received breast pump RX from [address] To to sign. Concepcion Agudelo RN [facility]10-26-[facility] Telephone encounter Note* Telephone Encounter - Shara Phipps RN - 06/11/2024 5:17 PM EDT Patient calling regarding concerns that she is having bleeding when she has a bowel movement. Patient had a baby 2 weeks ago and has stiches. Conferenced to Answering Service to speak with provider care professional for bleeding concerns. Patient denies any new or worsening symptoms of which a provider is not aware:NO GO TO THE EMERGENCY ROOM OR CALL 911 IF: * You develop any new symptoms * Your condition worsens * You are concerned or anxious about your condition for any other reason. If you have any questions, you can call Nurse concrete tester back. [facility] Miscellaneous Notes* Telephone Encounter - Shara Phipps RN - 06/11/2024 5:17 PM EDT Patient calling regarding concerns that she is having bleeding when she has a bowel movement. Patient had a baby 2 weeks ago and has stiches. Conferenced to Answering Service to speak with provider care professional for bleeding concerns. Patient denies any new or worsening symptoms of which a provider is not aware:NO GO TO THE EMERGENCY ROOM OR CALL 911 IF: * You develop any new symptoms * Your condition worsens * You are concerned or anxious about your condition for any other reason. If you have any questions, you can call Nurse concrete tester back. documented in this encounterWood County Hospital10-12-2024 [facility] Medical Records Department [address] [place] [id number] Discharge Summary 05/28/24 1027 MR#: [id number] Acct: [id number] Name: GENET MAYBERRY Rep #: [id number] : 2005 18 From: Estella Michael CNM PCP: Dr. Greyson Pimentel MD Status:ADM IN Location: [id number] Providers Date of Admission: 05/26/24 Primary Care Physician: Dr. Greyson Pimentel MD Reason For Visit: VAGINAL DELIVERY Diagnosis Discharge Diagnosis (1) History of posttraumatic stress disorder (PTSD): Status: Acute Code(s): Z86.59 - Personal history of other mental and behavioral disorders (2) Anxiety: Status: Acute Code(s): F41.9 - Anxiety disorder, unspecified (3) Rubella non-immune status, antepartum: Status: Acute Code(s): O09.899 - Supervision of other high risk pregnancies, unspecified trimester; Z28.39 - Other underimmunization status (4) Vacuum extractor delivery, delivered: Status: Acute Code(s): O75.9 - Complication of labor and delivery, unspecified (5) Second degree perineal laceration: Status: Acute Code(s): O70.1 - Second degree perineal laceration during delivery (6) Lactating mother: Status: Acute Code(s): Z39.1 - Encounter for care and examination of lactating mother Plan 1) Routine PPD#1 2) Vitals stable 3) I O 4) Pain management 5) services PRN 6) Planning D/C home tomorrow Medications at Discharge Home Medications acetaminophen 500 mg tablet 1,000 mg (2 x 500 mg) PO Q6H PRN PRN Pain 1-10 Or Fever #0 tabs 05/28/24 naproxen 500 mg tablet 500 mg PO Q8H PRN PRN Pain Score 1-10 #0 tabs 05/28/24 Weight / BMI Weight Weight: 165 lb 5.547 oz Body Mass Index (BMI) 29.2 ABG / Lab / Microbiology Data 05/26/24 09:30 D/C Instructions Discharge Diet: No restrictions Discharge Activity: Return to Normal Activity, May Drive, May Shower and May Take a Tub Bath May resume sexual activity in: 6 weeks Weight Bearing Status: Full weight bearing Call your doctor if you observe: Fever of 101 or Higher, Inability to urinate, Using more than 1 pad per hour, Shortness of breath, Chest pain, Increased palpitations (irregular heartbeat), Calf discomfort and Uncontrolled pain Please Follow Up With: Estella Michael CNM When: 2 week virtual visit and 6 week visit Meaningful Use Info Meaningful Use Meaningful Use Diagnoses (Choose all that apply): None applicable Ischemic Stroke Statin Dosing Therapy Reference: STATIN DOSE THERAPY REFERENCE: * Patients > 75 years receive moderate or high dose statin therapy. * Patients 75 years or YOUNGER should receive HIGH intensity statin dose unless contraindicated. You will be required to document reason for non-treatment if statin daily dose does not meet guidelines. HIGH DOSE STATIN THERAPY DAILY Atorvastatin > than or = to 40 mg Rosuvastatin > than or = to 20 mg Amlodipine + Atorvastatin > than or = to 2.5/40 mg Ezetimibe + Simvastatin 10/80 mg Simvastatin 80mg Discharge Plan Admission Admit Date/Time: 05/26/24 07:55 Primary Reason for Your Visit: Vaginal Delivery Attending Provider: Minnie Murcia Primary Care Provider: Greyson Pimentel Discharge Orders/Prescriptions Prescriptions: New acetaminophen 500 mg Tablet 1,000 mg PO Q6H PRN PRN (Reason: Pain 1-10 Or Fever) Qty: 0 0RF naproxen 500 mg Tablet 500 mg PO Q8H PRN PRN (Reason: Pain Score 1-10) Qty: 0 0RF Discontinued sulfamethoxazole-trimethoprim [Bactrim DS] 800-160 mg tablet 1 tab PO BID Qty: 20 0RF ondansetron 4 mg tablet,disintegrating 4 mg PO Q6H PRN (Reason: nausea and vomiting) Qty: 20 0RF ferrous sulfate [iron] 325 mg (65 mg iron) tablet 325 mg PO QODAY Referrals / Follow Up: Greyson Pimentel MD [Primary Care Provider] - Minnie Murcia MD [Med Staff - Active Staff] - Disposition Disposition (needs filled in before D/C Order can be placed): Home, Self Care 05/28/24 1108 Cosigner Signature (if applicable): CC: NOA Michael; Dr. Greyson Pimentel MD Signed ADDENDUM by NOA Michael on 05/28/24 at 1122 Addendum 15 minutes spent on discharge 05/28/24 1122 Cosigner Signature (if applicable): cc: NOA Michael; Dr. Greyson Pimentel MD * [facility]24 NoteHNO ID: [id number] Author: DELMA HERNANDEZ RN Service: ? Author Type: Registered Nurse Type: Progress Notes Filed: 05/27/2024 08:37 Note Text: Patient delivered via VAVD by Dr. Murcia on 05/26/24 at [facility]. See OB history. Delma Hernandez RNOhio State Health System10-11-2024 History of Present illness Narrative* Delma Hernandez RN - 05/27/2024 8:33 AM EDT Patient delivered via VAVD by Dr. Murcia on 05/26/24 at [facility]. See OB history. Delma Hernandez RN documented in this encounterWood County Hospital10-02-2024 Telephone encounter Note * Telephone Encounter - Vicenta Gallego RN - 05/18/2024 12:39 PM EDT Pt called stating for the past hour she has had abdominal pain/contractions every 7-10 minutes to the point where she cannot walk. Rating pain 7/10 when she does have the contractions. Denies leakingfluid/vaginal bleeding. Has had increased discharge. Has not tried tylenol. This RN talked with o/c provider, Dr. Moralez, and Pt is advised to go to L&D to be evaluated. Copy of episode sent to L&D and L&D notified. Pt called sister to take her as she does not have a vehicle. ETA 20 minutes to [facility]. Vicenta Gallego RN [facility]10-[facility] Miscellaneous Notes* Telephone Encounter - Vicenta Gallego RN - 05/18/2024 12:39 PM EDT Pt called stating for the past hour she has had abdominal pain/contractions every 7-10 minutes to the point where she cannot walk. Rating pain 7/10 when she does have the contractions. Denies leakingfluid/vaginal bleeding. Has had increased discharge. Has not tried tylenol. This RN talked with o/c provider, Dr. Moralez, and Pt is advised to go to L&D to be evaluated. Copy of episode sent to L&D and L&D notified. Pt called sister to take her as she does not have a vehicle. ETA 20 minutes to [facility]. Vicenta Gallego RN documented in this encounterWood County Hospital09-30-2024 Telephone encounter Note * Telephone Encounter - Tamra Perez MSW - 05/16/2024 10:51 AM EDT Patient called Jasbir back and reports that she called and changed her Medicaid Managed Care Plan to [employer]. Jasbir noted that she would pass message along to OB. [facility] Miscellaneous Notes* Telephone Encounter - Tamra Perez MSW - 05/16/2024 10:51 AM EDT Patient called Sw back and reports that she called and changed her Medicaid Managed Care Plan to [employer]. Sw noted that she would pass message along to OB. * Telephone Encounter - Tamra Perez MSW - 05/16/2024 10:19 AM EDT Sw left 2nd message for patient to return call to discuss Medicaid managed care plan questions. * Telephone Encounter - Tamra Perez MSW - 05/09/2024 11:09 AM EDT Sw called and left patient a message to return call to discuss Medicaid Managed care plan question. documented in this encounterWood County Hospital09-30-2024 Telephone encounter Note * Telephone Encounter - Tamra Perez MSW - 05/16/2024 10:19 AM EDT Jasbir left 2nd message for patient to return call to discuss Medicaid managed care plan questions. [facility] Progress note* Quick Notes - Sy Pennington MD - 05/12/2024 2:55 PM EDT SW- Pt doing well. No regular ctx's. No vb, lof. Good FM PE: Gen- NAD, well appearing Abd- Soft, gravid, NT, S=D See flowsheet A/p 37 wk gestation - Anemia: Cont oral iron - Changed insurance to [place] [employer] - Reviewed labor precautions - Instructed to pre register at hospital - RTO 1 wk Sy Pennington DO [facility]09-26-2024 Miscellaneous Notes* Quick Notes - Sy Pennington MD - 05/12/2024 2:55 PM EDT SW- Pt doing well. No regular ctx's. No vb, lof. Good FM PE: Gen- NAD, well appearing Abd- Soft, gravid, NT, S=D See flowsheet A/p 37 wk gestation - Anemia: Cont oral iron - Changed insurance to [place] [employer] - Reviewed labor precautions - Instructed to pre register at hospital - RTO 1 wk Sy Pennington DO documented in this encounterWood County Hospital09-26-2024 Instructions* Patient Instructions* Audrey Miller MA - 05/12/2024 2:45 PM EDT SEQUENTIAL SCREENINGS [facility] offers sequential screenings for women who are interested in screenings for chromosomal abnormalities and certain defects during a . The sequential screen combinesultrasound and blood tests to determine the risk of chromosomal abnormalities, including Down's Syndrome (Trisomy 21) and Trisomy 18, as well as open neural tube defects including spina bifida. Ultrasound examination is performed between 11 weeks and 13 weeks gestational age. Blood tests are drawn after the ultrasound and again later in the between 15 and 21 weeks gestational age. Please let your physician know if you are interested in this testing. It will require an appointment withour arcade technician. This is not an ultrasound performed by a physician in our office during a routine visit. SIGNS AND SYMPTOMS OF LABOR 1. Contractions every 10 minutes or more often 2. Clear, pink, or brownish fluid (water) leaking from vagina 3. Feeling that baby is pushing down, pressure 4. Low, dull backache 5. Cramps that feel like a period 6. Cramps with or without diarrhea If you notice any of the above symptoms, contact our office at [phone] and ask to speak with anurse. After hours, you can call [employer] registry at [phone] OR call [facility] at [phone] ask to have the doctor care professional paged. If you consider this an emergency, dial 9-1-4 or go to your nearest emergency department. NEED HELP? Are you dealing with a violent or abusive relationship? Are you a victim of rape or sexual assult? Call [facility] ([place]) 24 hour Crisis Hotline: 200.545.2812 or 345-448-2600. MANUAL Your Guide to a Healthy manual is now on-line. Visit [email or web address] to download your free copy documented in this encounterWood County Hospital09-23-2024 Telephone encounter Note * Telephone Encounter - Tamra Perez MSW - 05/09/2024 11:09 AM EDT Sw called and left patient a message to return SW call to discuss Medicaid Managed care plan question. [facility]-19-[facility] Miscellaneous Notes* Quick Notes - Bobby Chu APRN.CNP - 05/05/2024 2:30 PM EDT EH - S: Genet is a 18 year old female who presents at 36w6d for a routine visit. Feeling movement. Denies headache, visual changes, chest pain, shortness of breath, vaginal bleeding, leakage of fluid, or dysuria. Feeling well, no complaints. O: See flow sheet Gen: No apparent distress Abd: Gravid, nontender, S=D ASSESSMENT/PLAN: 1. Supervision of normal first teen in third trimester - ICD9: V22.0, ICD10: Z34.03 (primary diagnosis) - Reviewed insurance. [facility] does not accept [employer]. Social work consult placed to assist patient in changing insurances. If not able to switch, may need to deliver at [place] 2. 36 weeks gestation of - ICD9: V22.2, ICD10: Z3A.36 - GBS negative 3. Anemia complicating , third trimester - ICD9: 648.23, 285.9, ICD10: O99.013 - Continue oral iron - Recheck CBC 4. Rubella non-immune status, antepartum - ICD9: 646.83, V15.83, ICD10: O09.899, Z28.39 - Consider MMR vaccine PTL precautions and kick counts reviewed. RTO in 1 week or sooner as needed. Bobby Chu APRN.XIAO documented in this encounterWood County Hospital09-19-2024 Progress note* Quick Notes - Bobby Chu APRN.CNP - 05/05/2024 2:30 PM EDT EH - S: Genet is a 18 year old female who presents at 36w6d for a routine visit. Feeling movement. Denies headache, visual changes, chest pain, shortness of breath, vaginal bleeding, leakage of fluid, or dysuria. Feeling well, no complaints. O: See flow sheet Gen: No apparent distress Abd: Gravid, nontender, S=D ASSESSMENT/PLAN: 1. Supervision of normal first teen in third trimester - ICD9: V22.0, ICD10: Z34.03 (primary diagnosis) - Reviewed insurance. [facility] does not accept [employer]. Social work consult placed to assist patient in changing insurances. If not able to switch, may need to deliver at [place] 2. 36 weeks gestation of - ICD9: V22.2, ICD10: Z3A.36 - GBS negative 3. Anemia complicating , third trimester - ICD9: 648.23, 285.9, ICD10: O99.013 - Continue oral iron - Recheck CBC 4. Rubella non-immune status, antepartum - ICD9: 646.83, V15.83, ICD10: O09.899, Z28.39 - Consider MMR vaccine PTL precautions and kick counts reviewed. RTO in 1 week or sooner as needed. Bobby Chu APRN.XIAO [facility]-19[facility] Instructions* Patient Instructions* Amber Morales LPN - 05/05/2024 2:27 PM EDT SEQUENTIAL SCREENINGS [facility] offers sequential screenings for women who are interested in screenings for chromosomal abnormalities and certain defects during a . The sequential screen combinesultrasound and blood tests to determine the risk of chromosomal abnormalities, including Down's Syndrome (Trisomy 21) and Trisomy 18, as well as open neural tube defects including spina bifida. Ultrasound examination is performed between 11 weeks and 13 weeks gestational age. Blood tests are drawn after the ultrasound and again later in the between 15 and 21 weeks gestational age. Please let your physician know if you are interested in this testing. It will require an appointment withour arcade technician. This is not an ultrasound performed by a physician in our office during a routine visit. SIGNS AND SYMPTOMS OF LABOR 1. Contractions every 10 minutes or more often 2. Clear, pink, or brownish fluid (water) leaking from vagina 3. Feeling that baby is pushing down, pressure 4. Low, dull backache 5. Cramps that feel like a period 6. Cramps with or without diarrhea If you notice any of the above symptoms, contact our office at [phone] and ask to speak with anurse. After hours, you can call doctors registry at [phone] OR call [facility] at [phone] ask to have the doctor care professional paged. If you consider this an emergency, dial 9-1-1 or go to your nearest emergency department. NEED HELP? Are you dealing with a violent or abusive relationship? Are you a victim of rape or sexual assult? Call [facility] ([place]) 24 hour Crisis Hotline: 919.893.5480 or 565-209-5421. MANUAL Your Guide to a Healthy manual is now on-line. Visit [email or web address] to download your free copy documented in this encounterWood [facility]09-[facility] Progress note* Quick Notes - Sy Pennington MD - 04/28/2024 4:38 PM EDT SW- Pt doing well. No ctx, vb, lof. Good FM PE: Gen- NAD, well appearing Abd- Soft, gravid, NT See flowsheet A/p 35 wk gestation - Anemia: Iron supplement rx sent in. Pt has not yet started iron due to cost issues. Discussed risks of anemia in and importance of taking iron - Reviewed [facility] peds - Reports her mother is helping her with plan sheet and will bring to future visit - Bedside TAUS showing vertex presentation - GBS today - Weekly visits - Asthma: Not needing Albuterol inhaler - RTO 1 wk Sy Pennington DO [facility] Miscellaneous Notes* Quick Notes - Sy Pennington MD - 04/28/2024 4:38 PM EDT SW- Pt doing well. No ctx, vb, lof. Good FM PE: Gen- NAD, well appearing Abd- Soft, gravid, NT See flowsheet A/p 35 wk gestation - Anemia: Iron supplement rx sent in. Pt has not yet started iron due to cost issues. Discussed risks of anemia in and importance of taking iron - Reviewed [facility] peds - Reports her mother is helping her with plan sheet and will bring to future visit - Bedside TAUS showing vertex presentation - GBS today - Weekly visits - Asthma: Not needing Albuterol inhaler - RTO 1 wk Sy Pennington DO documented in this encounterWood [facility]09-12-2024 Instructions* Patient Instructions* Mica Hayward LPN - 04/28/2024 4:20 PM EDT SEQUENTIAL SCREENINGS [facility] offers sequential screenings for women who are interested in screenings for chromosomal abnormalities and certain defects during a . The sequential screen combinesultrasound and blood tests to determine the risk of chromosomal abnormalities, including Down's Syndrome (Trisomy 21) and Trisomy 18, as well as open neural tube defects including spina bifida. Ultrasound examination is performed between 11 weeks and 13 weeks gestational age. Blood tests are drawn after the ultrasound and again later in the between 15 and 21 weeks gestational age. Please let your physician know if you are interested in this testing. It will require an appointment withour arcade technician. This is not an ultrasound performed by a physician in our office during a routine visit. SIGNS AND SYMPTOMS OF LABOR 1. Contractions every 10 minutes or more often 2. Clear, pink, or brownish fluid (water) leaking from vagina 3. Feeling that baby is pushing down, pressure 4. Low, dull backache 5. Cramps that feel like a period 6. Cramps with or without diarrhea If you notice any of the above symptoms, contact our office at [phone] and ask to speak with anurse. After hours, you can call doctors registry at [phone] OR call [facility] at [phone] ask to have the doctor care professional paged. If you consider this an emergency, dial 91-7 or go to your nearest emergency department. NEED HELP? Are you dealing with a violent or abusive relationship? Are you a victim of rape or sexual assult? Call [facility] ([place]) 24 hour Crisis Hotline: 299.109.9122 or 445-876-8531. MANUAL Your Guide to a Healthy manual is now on-line. Visit [email or web address] to download your free copy documented in this encounterWood [facility] Hospital08-28-[facility]24 Telephone encounter Note * Telephone Encounter - Tamra Perez MSW - 04/13/2024 10:08 AM EDT Jasbir wrote up letter to patient along with community resource list with agencies that assist with food, housing, transportation, utility assistance. [facility]08-[facility] Miscellaneous Notes* Telephone Encounter - Tamra Perez MSW - 04/13/2024 10:08 AM EDT Jasbir wrote up letter to patient along with community resource list with agencies that assist with food, housing, transportation, utility assistance. * Telephone Encounter - Tamra Perez MSW - 04/11/2024 9:54 AM EDT Jasbir tried call again to patient and received messagethe person you are calling at this time cannot accept calls at this time, please try call again later. * Telephone Encounter - Tamra Perez MSW - 04/07/2024 11:24 AM EDT Jasbir received message requesting that Sw reach out to patient to discuss transportation needs. Jasbir called patient and received electronic message the person you are calling at this time,cannot accept any calls. Please try call again later. Sw will try call again another time. documented in this encounterWood [facility] Hospital08-26-2024 Telephone encounter Note * Telephone Encounter - Tamra Perez MSW - 04/11/2024 9:54 AM EDT Jasbir tried call again to patient and received messagethe person you are calling at this time cannot accept calls at this time, please try call again later. [facility] Telephone encounter Note* Telephone Encounter - Concepcion Agudelo RN - 04/08/2024 4:47 PM EDT Faxed. Concepcion Agudelo RN [facility]08-[facility]24 Miscellaneous Notes* Telephone Encounter - Concepcion Agudelo RN - 04/08/2024 4:47 PM EDT Faxed. Concepcion Agudelo RN * Telephone Encounter - Concepcion Agudelo RN - 04/08/2024 8:14 AM EDT Received breast pump RX from [facility]. To to sign. Concepcion Agudelo RN documented in this encounterWood [facility] Hospital08-23-2024 Telephone encounter Note * Telephone Encounter - Concepcion Agudelo RN - 04/08/2024 8:14 AM EDT Received breast pump RX from [facility]. To to sign. Concepcion Agudelo RN [facility]08-22-2024 Telephone encounter Note* Telephone Encounter - Tamra Perez MSW - 04/07/2024 11:24 AM EDT Sw received message requesting that Sw reach out to patient to discuss transportation needs. Sw called patient and received electronic message the person you are calling at this time,cannot accept any calls. Please try call again later. Sw will try call again another time. [facility] Progress note* Quick Notes - Xena Lopez MD - 04/06/2024 3:48 PM EDT DM-Pt doing well. Denies vaginal Bleeding, Leaking fluid, or regular Contractions. Pt reports good movement. Pt states did not have a ride for previous appt. Physical Exam: Gen: female in no apparent distress Abd: soft, Gravid. Non tender to palpation. See flow sheet @ 32.5 weeks Assessment & Plan High risk teen in third trimester Orders: TDAP VACCINE, AGE 7+ YR (ADACEL, BOOSTRIX) GESTATIONAL GLUCOSE SCREEN, 1-HOUR, 50 GRAM, NON-FASTING; Future COMPLETE BLOOD COUNT AND DIFFERENTIAL; Future SYPHILIS TOTAL W/REFLEX; Future Limited care in third trimester Poor social situation Pt reports missed appt do to lack of transportation. Will send to to see if they can assist. Need for DTaP vaccine Orders: TDAP VACCINE, AGE 7+ YR (ADACEL, BOOSTRIX) Need for vaccination 32 weeks gestation of Orders: URINE OB DIP B/O GESTATIONAL GLUCOSE SCREEN, 1-HOUR, 50 GRAM, NON-FASTING; Future COMPLETE BLOOD COUNT AND DIFFERENTIAL; Future SYPHILIS TOTAL W/REFLEX; Future - pt states will try to get labs done tomorrow Importance of regular visits reviewed - will send to chart to SW -Kick counts reviewed -will need to sign LARC form next visit Xena Gray MD [facility]08-[facility] Miscellaneous Notes* Quick Notes - Xena Lopez MD - 04/06/2024 3:48 PM EDT DM-Pt doing well. Denies vaginal Bleeding, Leaking fluid, or regular Contractions. Pt reports good movement. Pt states did not have a ride for previous appt. Physical Exam: Gen: female in no apparent distress Abd: soft, Gravid. Non tender to palpation. See flow sheet @ 32.5 weeks Assessment & Plan High risk teen in third trimester Orders: TDAP VACCINE, AGE 7+ YR (ADACEL, BOOSTRIX) GESTATIONAL GLUCOSE SCREEN, 1-HOUR, 50 GRAM, NON-FASTING; Future COMPLETE BLOOD COUNT AND DIFFERENTIAL; Future SYPHILIS TOTAL W/REFLEX; Future Limited care in third trimester Poor social situation Pt reports missed appt do to lack of transportation. Will send to SW to see if they can assist. Need for DTaP vaccine Orders: TDAP VACCINE, AGE 7+ YR (ADACEL, BOOSTRIX) Need for vaccination 32 weeks gestation of Orders: URINE OB DIP B/O GESTATIONAL GLUCOSE SCREEN, 1-HOUR, 50 GRAM, NON-FASTING; Future COMPLETE BLOOD COUNT AND DIFFERENTIAL; Future SYPHILIS TOTAL W/REFLEX; Future - pt states will try to get labs done tomorrow Importance of regular visits reviewed - will send to chart to JASBIR Goldstein counts reviewed -will need to sign LARC form next visit Xena Gray MD documented in this encounterWood [facility] Hospital08-21-2024 History of Present illness Narrative* Brittany Alanis MA - 04/06/2024 3:37 PM EDT Patient identified by name and date of . Genet Mayberry presents today for a vaccination of Tdap. Patient denies an allergy to latex: yes Patient denies a severe (life-threatening) allergy to a previous dose of Tdap, DTP, DTaP, DT or Td vaccine. Yes Patient denies history of epilepsy or neurological problems: Yes Patient is afebrile and denies being moderately or severely ill: Yes Patient denies history of Guillain-Ringwood Syndrome (a severe paralytic illness): Yes Tdap Adacel injection was given without incident. See immunizations for details of immunizations administered today. VIS sheet provided: Yes Provider Leticia was present in office at time of injection. Brittany Alanis MA documented in this encounterWood County Hospital08-21-2024 Instructions* Patient Instructions* Brittany Alanis MA - 04/06/2024 3:23 PM EDT SEQUENTIAL SCREENINGS [facility] offers sequential screenings for women who are interested in screenings for chromosomal abnormalities and certain defects during a . The sequential screen combinesultrasound and blood tests to determine the risk of chromosomal abnormalities, including Down's Syndrome (Trisomy 21) and Trisomy 18, as well as open neural tube defects including spina bifida. Ultrasound examination is performed between 11 weeks and 13 weeks gestational age. Blood tests are drawn after the ultrasound and again later in the between 15 and 21 weeks gestational age. Please let your physician know if you are interested in this testing. It will require an appointment withour arcade technician. This is not an ultrasound performed by a physician in our office during a routine visit. SIGNS AND SYMPTOMS OF LABOR 1. Contractions every 10 minutes or more often 2. Clear, pink, or brownish fluid (water) leaking from vagina 3. Feeling that baby is pushing down, pressure 4. Low, dull backache 5. Cramps that feel like a period 6. Cramps with or without diarrhea If you notice any of the above symptoms, contact our office at [phone] and ask to speak with anurse. After hours, you can call doctors registry at [phone] OR call [facility] at [phone] ask to have the doctor care professional paged. If you consider this an emergency, dial 4-6-7 or go to your nearest emergency department. NEED HELP? Are you dealing with a violent or abusive relationship? Are you a victim of rape or sexual assult? Call [facility] ([place]) 24 hour Crisis Hotline: 994.604.2188 or 434-354-8949. MANUAL Your Guide to a Healthy manual is now on-line. Visit [email or web address] to download your free copy documented in this encounterWood County Hospital05-22-2024 Progress note* Quick Notes - Syeda Benavidez MD - 01/06/2024 4:54 PM EDT RR- VB No. LOF No. CTXS No. Movement: present. Other c/o: No. Medication list reviewed. Physical Exam See Flow Sheet Abd: soft, nontender, gravid Ext: edema: Trace A/P 19w5d Estimated Date of Delivery: 05/27/24 no labs due today. Anatomy US not scheduled, encouraged to schedule this, patient thought it was today. Order in but not scheduled. D/w her importance of mychart and checking appointment, being able to review labs. cont. PNV- states cannot tolerate one she has so gummy rx given Syeda Benavidez M.D. [facility]05-[facility]24 Miscellaneous Notes* Quick Notes - Syeda Benavidez MD - 01/06/2024 4:54 PM EDT RR- VB No. LOF No. CTXS No. Movement: present. Other c/o: No. Medication list reviewed. Physical Exam See Flow Sheet Abd: soft, nontender, gravid Ext: edema: Trace A/P 19w5d Estimated Date of Delivery: 05/27/24 no labs due today. Anatomy US not scheduled, encouraged to schedule this, patient thought it was today. Order in but not scheduled. D/w her importance of mychart and checking appointment, being able to review labs. cont. PNV- states cannot tolerate one she has so gummy rx given Syeda Benavidez M.D. documented in this encounterWood County Hospital05-22-2024 Instructions* Patient Instructions* Giulia Morris MA - 01/06/2024 4:27 PM EDT SEQUENTIAL SCREENINGS [facility] offers sequential screenings for women who are interested in screenings for chromosomal abnormalities and certain defects during a . The sequential screen combinesultrasound and blood tests to determine the risk of chromosomal abnormalities, including Down's Syndrome (Trisomy 21) and Trisomy 18, as well as open neural tube defects including spina bifida. Ultrasound examination is performed between 11 weeks and 13 weeks gestational age. Blood tests are drawn after the ultrasound and again later in the between 15 and 21 weeks gestational age. Please let your physician know if you are interested in this testing. It will require an appointment withour arcade technician. This is not an ultrasound performed by a physician in our office during a routine visit. SIGNS AND SYMPTOMS OF LABOR 1. Contractions every 10 minutes or more often 2. Clear, pink, or brownish fluid (water) leaking from vagina 3. Feeling that baby is pushing down, pressure 4. Low, dull backache 5. Cramps that feel like a period 6. Cramps with or without diarrhea If you notice any of the above symptoms, contact our office at [phone] and ask to speak with anurse. After hours, you can call doctors registry at [phone] OR call [facility] at [phone] ask to have the doctor care professional paged. If you consider this an emergency, dial [phone] or go to your nearest emergency department. NEED HELP? Are you dealing with a violent or abusive relationship? Are you a victim of rape or sexual assult? Call [facility] ([place]) 24 hour Crisis Hotline: 596.221.6376 or 136-075-5461. MANUAL Your Guide to a Healthy manual is now on-line. Visit [email or web address] to download your free copy documented in this encounterWood County Hospital04-24-2024 Progress note* Quick Notes - Concepcion Moralez MD - 12/09/2023 11:57 AM EDT S: Genet Mayberry is a 18 year old female who presents at 05/27/2024, by Ultrasound for a routine visit. Denies headache, visual changes, chest pain, shortness of breath, vaginal bleeding, leakage of fluid, or dysuria. Feeling well, no complaints. No movement yet. Has no appetite. Started smoking marijuana to increase appetite. Discussed risks of THC in and cyclical n/v with some THC. Encouraged small meals and snacks. O: See flow sheet Gen: No apparent distress Abd: nontender ASSESSMENT/PLAN: 1. Supervision of normal first teen in second trimester - ICD9: V22.0, ICD10: Z34.02 (primary diagnosis) 2. Screening, , for anatomic survey - ICD9: V28.81, ICD10: Z36.89 - OBSTETRIC ULTRASOUND WHI 3. 15 weeks gestation of - ICD9: V22.2, ICD10: Z3A.15 Concepcion Moralez MD [facility]04-24-2024 Miscellaneous Notes* Quick Notes - Concepcion Moralez MD - 12/09/2023 11:57 AM EDT S: Genet Mayberry is a 18 year old female who presents at 05/27/2024, by Ultrasound for a routine visit. Denies headache, visual changes, chest pain, shortness of breath, vaginal bleeding, leakage of fluid, or dysuria. Feeling well, no complaints. No movement yet. Has no appetite. Started smoking marijuana to increase appetite. Discussed risks of THC in and cyclical n/v with some THC. Encouraged small meals and snacks. O: See flow sheet Gen: No apparent distress Abd: nontender ASSESSMENT/PLAN: 1. Supervision of normal first teen in second trimester - ICD9: V22.0, ICD10: Z34.02 (primary diagnosis) 2. Screening, , for anatomic survey - ICD9: V28.81, ICD10: Z36.89 - OBSTETRIC ULTRASOUND WHI 3. 15 weeks gestation of - ICD9: V22.2, ICD10: Z3A.15 Concepcion Moralez MD documented in this encounterWood County Hospital04-24-2024 Instructions* Patient Instructions* Amber Patel LPN - 12/09/2023 9:54 AM EDT SEQUENTIAL SCREENINGS [facility] offers sequential screenings for women who are interested in screenings for chromosomal abnormalities and certain defects during a . The sequential screen combinesultrasound and blood tests to determine the risk of chromosomal abnormalities, including Down's Syndrome (Trisomy 21) and Trisomy 18, as well as open neural tube defects including spina bifida. Ultrasound examination is performed between 11 weeks and 13 weeks gestational age. Blood tests are drawn after the ultrasound and again later in the between 15 and 21 weeks gestational age. Please let your physician know if you are interested in this testing. It will require an appointment withour arcade technician. This is not an ultrasound performed by a physician in our office during a routine visit. SIGNS AND SYMPTOMS OF LABOR 1. Contractions every 10 minutes or more often 2. Clear, pink, or brownish fluid (water) leaking from vagina 3. Feeling that baby is pushing down, pressure 4. Low, dull backache 5. Cramps that feel like a period 6. Cramps with or without diarrhea If you notice any of the above symptoms, contact our office at [phone] and ask to speak with anurse. After hours, you can call doctors registry at [phone] OR call [facility] at [phone] ask to have the doctor care professional paged. If you consider this an emergency, dial 91-4 or go to your nearest emergency department. NEED HELP? Are you dealing with a violent or abusive relationship? Are you a victim of rape or sexual assult? Call [facility] ([place]) 24 hour Crisis Hotline: 270.259.6521 or 516-379-8572. MANUAL Your Guide to a Healthy manual is now on-line. Visit [email or web address] to download your free copy documented in this encounterWood County Hospital03-23-2024 History of Present illness Narrative* Stanislav Thompson APRN.[employer] - 11/07/2023 12:43 PM EDT Subjective HPI' Nontoxic-appearing female presents urgent care chief complaint sore throat ear pain vomiting fatigue body aches chills low-grade temperature. Vomited twice today. Sick contacts work similar signs symptoms. Has not used any OTC medications. Additionally is requesting test. States menstrualcycle is 3 months late. Denies any high fevers productive cough chest pain hemoptysis or rashes. Past medical history prescription medications allergies reviewed. .Patient presents with: Sore Throat: VYAS, vomiting, bilateral ear pain, R worse x1 day PAST MEDICAL HISTORY Diagnosis Date Respiratory syncytial virus (RSV) Unspecified asthma(493.90) resolved Varicella 05/03/12 PAST SURGICAL HISTORY Procedure Laterality Date NONE ALLERGIES Patient has no known allergies. MEDICATIONS cyclobenzaprine (FLEXERIL) 5 mg tablet Take 1 tablet by mouth three times daily as needed. (Patientnot taking: Reported on 11/07/2023) Kwjyhwyyipualjx-Jltxhlxex-KZ (BROMFED DM) 2-30-10 mg/5 mL syrup Take 5 mL by mouth four times dailyas needed. (Patient not taking: Reported on 12/02/2022) albuterol HFA (VENTOLIN HFA) 90 mcg/actuation inhaler Inhale 2 puffs with spacer every 4-6 hours asneeded for cough or wheezing. (Patient not taking: Reported on 12/02/2022) inhalat.spacing dev,large mask (AEROCHAMBER Z-STAT PLUS-LG MSK) spcr Use with inhaler as directed. (Patient not taking: Reported on 12/02/2022) FAMILY HISTORY Problem Relation Age of Onset [...] Tobacco comments: outside -mom Vaping Use Vaping Use: Never used Substance Use Topics Alcohol use: No Drug use: No BP 104/64 Pulse 89 Temp 37.2 C (98.9 F) Resp 18 Wt 56 kg (123 lb 7.3 oz) LMP 11/11/2021 (Approximate) SpO2 100% Review of Systems Constitutional: Negative for chills, fever and malaise/fatigue. HENT: Positive for congestion, ear pain and sore throat. Negative for ear discharge and sinus pain. Eyes: Negative for blurred vision, pain, discharge and redness. Respiratory: Positive for cough. Negative for hemoptysis, sputum production, shortness of breath, wheezing and stridor. Cardiovascular: Negative for chest pain. Gastrointestinal: Positive for abdominal pain and vomiting. Negative for diarrhea and nausea. Musculoskeletal: Negative for myalgias. Skin: Negative for itching and rash. Neurological: Negative for dizziness and headaches. Objective Physical Exam Constitutional: General: She is not in acute distress. Appearance: She is not diaphoretic. HENT: Head: Normocephalic. Jaw: No trismus, tenderness, swelling or pain on movement. Right Ear: Tympanic membrane, ear canal and external ear normal. Left Ear: Tympanic membrane, ear canal and external ear normal. Mouth/Throat: Mouth: Mucous membranes are moist. Pharynx: Oropharynx is clear. Uvula midline. No pharyngeal swelling, oropharyngeal exudate, posterior oropharyngeal erythema or uvula swelling. Eyes: Conjunctiva/sclera: Conjunctivae normal. Pupils: Pupils are equal, round, and reactive to light. Cardiovascular: Rate and Rhythm: Normal rate and regular rhythm. Heart sounds: Normal heart sounds. Pulmonary: Effort: Pulmonary effort is normal. No tachypnea, accessory muscle usage or respiratory distress. Breath sounds: Normal breath sounds. No stridor. No wheezing, rhonchi or rales. Abdominal: General: There is no distension. Palpations: Abdomen is soft. Tenderness: There is abdominal tenderness in the left lower quadrant. There is no guarding or rebound. Musculoskeletal: Cervical back: Normal range of motion and neck supple. No edema, erythema, rigidity or tenderness. No pain with movement. Normal range of motion. Lymphadenopathy: Cervical: No cervical adenopathy. Skin: General: Skin is warm and dry. Neurological: Mental Status: She is alert and oriented to person, place, and time. ASSESSMENT/PLAN: 1. Missed period - ICD9: 626.4, ICD10: N92.6 (primary diagnosis) - HCG QUAL UR B/O 2. Viral illness - ICD9: 079.99, ICD10: B34.9 - INFLUENZA A&B MOLECULAR (POC) 3. Positive test - ICD9: V72.42, ICD10: Z32.01 - CONSULT TO ENGRAVING PLATE MAKER 4. Left lower quadrant abdominal pain - ICD9: 789.04, ICD10: R10.32 hCG positive. Patient was established with ENGRAVING PLATE MAKER at the end of today's appointment. Lbvkx-og-qpuv flu test negative. With palpation patient had moderate to severe left lower quadrant pain. With patient's newly diagnosed and significant abdominal tenderness I recommend patient be seen in ED for further evaluation care. Verbalized understand agrees with plan of care. Stanislav Thompson APRN.[employer] documented in this encounterWood County Hospital11-30-2023 Discharge summary Author Gatito Reodica [facility] July 16, 2023 11:27pm Note Date/Time July 16, 2023 8:47pm [facility] Medical Records Department [address] [place] [address] Emergency Department Summary 07/16/23 MR#: [id number] Acct: [id number] Name: GENET MAYBERRY Rep #:[id number] : 2005 17 From: Gatito Colin MD PCP: Dr. Greyson Pimentel MD Status:REG E R Location: ED HPI HPI - GI History of Present Illness Chief Complaint: Nausea/Vomiting/Diarrhea Narrative Narrative: 17-year-old female who denies significant past medical history except for asthmapresents with nausea, vomiting, and diarrhea since yesterday evening. She had subjective fever and chills as well. She denies any cough. She states that shehas vomited 4 times without any blood in her emesis. She is also had diarrhea that is nonbloody. She states she is unable to keep any fluids down, and additionally when she lays on her left side, she has a lot of pain. She denies any dysuria or hematuria. She has history of irregular menses in the past, but her last menstrual period was last month. She presents with multiple somatic complaints mainly related to GI issues. 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-employment Home Medications ondansetron 4 mg disintegrating tablet 4 mg PO Q6H PRN nausea and vomiting #20 tabs 07/16/23 [Rx Last Taken Unknown] sulfamethoxazole 800 mg-trimethoprim 160 mg tablet (Bactrim DS) 1 tab PO BID #20tabs 07/16/23 [Rx Last Taken Unknown] Allergy/AdvReac Type Severity Reaction Status Date / Time No Known Allergies Allergy Verified 07/16/23 19:54 Family History no significant family his Social History current occupational status: student Smoking Status: Current some day smoker tobacco type: e-cigarettes substance use type: does not use ROS ROS ED ROS Narrative Constitutional: Subjective fever, positive chills. HEENT: No sore throat. No neck pain. No loss of vision. No rhinorrhea. Cardiovascular: No chest pain. No palpitations. No pedal edema. Respiratory: No cough, no shortness of breath. Abdominal: Left-sided abdominal pain. 4 episodes of nausea and vomiting. Positive diarrhea. Genitourinary: No dysuria. No hematuria. Musculoskeletal: No myalgias. No arthralgias. Neurologic: No headaches. No dizziness. No lightheadedness. Skin: No rash. No change in color. Psychiatric: No depression. No anxiety. EXAM Physical Exam Narrative Exam Narrative: Afebrile. Vital signs noted. Temperature slightly elevated at 100.3 degrees. HEENT: Normocephalic. Atraumatic. PERRL, EOMI. Neck soft and supple. No pointtenderness or step off. Cardiovascular: Regular rate and rhythm intermittent tachycardia. No murmurs, rubs, or gallops appreciated. Respiratory: No tachypnea. Lungs clear to auscultation bilaterally. Gastrointestinal: Abdomen soft, mild tenderness along left upper quadrant and left lower quadrant with normoactive bowel sounds. No rebound or guarding. Neurological: Awake. Alert. Nonfocal, nonlateralizing. Skin: No rash. Normal color. No pallor. Musculoskeletal: No pedal edema. Full range of motion extremities. Const Vital Signs: 07/16/23 19:54 Temperature 100.3 F H Temperature Source Temporal Pulse Rate 104 H Respiratory Rate 16 Blood Pressure 107/63 L Blood Pressure Mean 77 Pulse Ox 99 MDM MDM MDM Narrative Medical decision making narrative: Given her abdominal tenderness and diarrhea along with nausea and vomiting, in the differential diagnosis is colitis versus gastroenteritis versus diverticulitis. Additionally, she may have a urinary tract infection. She may have COVID-19 or influenza with GI symptoms. I will refrain from any antipyretic as of yet as she is experiencing nausea and vomiting so she will be bolused normal saline 1 L intravenously and administered ondansetron. Baseline labs will be obtained including CBC, CMP, and lipase to rule out pancreatitis asa cause of her vomiting. Serum will be obtained as well to rule out . This is why we will also refrain from intravenous Toradol until after negative test. I do not feel a chest x-ray is indicated becauseher pulse ox is 99% on room air and she does not show upper respiratory infection type symptoms. I reviewed the patient's laboratory work and she has slightly elevated white count of 13.7, hemoglobin normal at 12.9, hematocrit 39.3, platelet count normalat 238. Electrolyte panel shows slight hypokalemia 3.2 which was replaced orally with 40 mill equivalents. Glucose is appropriately elevated at 118 with a normal anion gap of 7, creatinine normal at 0.81, BUN normal at 7, no dehydration. Urinalysis shows 10- 25 WBCs with greater than 100 RBCs. This was sent for culture. She is positive for nitrites. Given her elevated temperature, and leukocytosis, she was given Toradol for analgesia as her test is negative in review. CT of the abdomen pelvis with IV contrastwas obtained because of her reported diarrhea. It does show cystitis with a sending urinary tract infection with concern for left-sided pyelonephritis. Shewas able to tolerate her first dose of Bactrim. Once again, her urine was sent for culture. I do feel that she should be treated with pyelonephritis antibiotics in the form of Bactrim. She was written a prescription to take for the next 10 days. She will follow-up with her primary care physician in the next 3 to 5 days. She is to return with sustained high fever, increased pain, inability to take her antibiotics, new or worsening symptoms. I do not feel sherequires admission or observation at this time as she is tolerating p.o. I alsowrote her prescription for Zofran. Disposition is discharged home in stable condition. History & Record Review Discussion w/independent historian: Patient and Significant other Additional record(s) reviewed:: Prior ED visit Lab Data Attestation: I reviewed the patient's lab results. Labs: Laboratory Results - last 24 hr 07/16/23 20:40 WBC 13.7 H RBC 4.66 Hgb 12.9 Hct 39.3 MCV 84.3 MCH 27.7 MCHC 32.8 RDW Std Deviation 40.6 RDW Coeff of Ruthie 13.2 Plt Count 238 MPV 10.4 Immature Gran % (Auto) 0.400 Neut % (Auto) 81.1 H Lymph % (Auto) 9.1 L Garden % (Auto) 9.2 H Eos % (Auto) 0.0 Baso % (Auto) 0.2 Absolute Neuts (auto) 11.1 H Absolute Lymphs (auto) 1.24 Nucleated RBC % 0 Sodium 136 Potassium 3.2 L Chloride 105 Carbon Dioxide 24.0 Anion Gap 7 BUN 7 Creatinine 0.81 Estim Creat Clear Calc 89.28 Est GFR (MDRD) Af Amer 118 Est GFR (MDRD) Non-Af 97 BUN/Creatinine Ratio 8.7 L Glucose 118 H Calcium 8.9 Total Bilirubin 0.50 AST 12 L ALT 37 Alkaline Phosphatase 80 Total Protein 8.0 Albumin 3.9 Globulin 4.1 Albumin/Globulin Ratio 1.0 Lipase 16 Serum , Qual NEGATIVE Urine Color Yellow Urine Clarity Cloudy Urine pH 5.0 Ur Specific [place] 1.020 Urine Protein 100 H Urine Glucose (UA) Normal Urine Ketones 50 H Urine Occult Blood 250 H Urine Nitrite Positive H Urine Bilirubin 1 H Urine Urobilinogen 4 H Ur Leukocyte Esterase 500 H Urine RBC > 100 SEEN Urine WBC 10-25 SEEN Ur Squamous Epith Cells 5-10 SEEN Urine Bacteria 1+ Urine Mucus 0 SEEN Radiography Diagnostic Testing: Clinical Impression(s) from Imaging Studies Abdomen/Pelvis CT 07/16/23 20:42 IMPRESSION: Findings suspicious for cystitis with ascending UTI and left vandana nephritis. Involuting 19 mm left ovarian cyst. Electronically Signed: Ramírez Tanner MD at 22:01 EST Reading Location ID and State: [facility] / [place] Tel , Service support , Discharge Plan Triage Chief Complaint: Nausea/Vomiting/Diarrhea ED Provider: Gatito Colin Dx/Rx/DC Orders Clinical Impression: Pyelonephritis, Nausea & vomiting, Hypokalemia Instructions: ED Pyelonephritis, Female (Adult), ED Vomiting (Adult) Prescriptions: New sulfamethoxazole-trimethoprim [Bactrim DS] 800-160 mg tablet 1 tab PO BID Qty: 20 0RF ondansetron 4 mg tablet,disintegrating 4 mg PO Q6H PRN (Reason: nausea and vomiting) Qty: 20 0RF Primary Care Provider: Greyson Pimentel Referrals: Greyson Pimentel MD [Primary Care Provider] - 3-5 Days Activity Restrictions/Additional Instructions: Return to the emergency department with sustained high fever, increased pain, intractable vomiting and inability to take your antibiotics, new or worsening symptoms. Otherwise, follow-up with your primary care provider in the next 3 to5 days. Disposition Disposition: Home, Self Care What to do if you have Problems For any increased pain, shortness of breath, bleeding, nausea or vomiting, chestpain, or any unexpected problems, contact your Primary Care Provider. Call [facility] ([phone]) or report to the closest Emergency Room. Call 911 if necessary. 07/16/232326 <Electronically signed by Gatito Colin MD> Cosigner Signature (if applicable): CC: Dr. Greyson Pimentel MD ~ Signed [facility] Work Phone: 1(271) 530-305011-30-2023 Hospital Discharge instructions Additional Instructions Return to the emergency department with sustained high fever, increased pain, intractable vomiting and inability to take your antibiotics, new or worsening symptoms. Otherwise, follow-up with your primary care provider in the next 3 to 5 days.[facility] Work Phone: 1(977) 413-501311-06-2023 Miscellaneous Notes* Telephone Encounter - Cynthia Bridges LPN - 06/22/2023 12:25 PM EST Patient phoned in to request a copy of her vaccine record. Vaccine record was printed and faxed to [facility] at [phone] . documented in [facility] encounter[facility] Tillman [facility] February 07, 2023 8:50pm Note Date/Time February 07, 2023 8:47 pm [facility] Medical Records Department [address] [place] [address] Emergency Department Summary 02/07/23 MR#: [id number] Acct: [id number] Name: GENET MAYBERRY I Rep #:[id number] : 2005 17 From: Bong Tillman MD PCP: Dr. Greyson Pimentel MD Status:PRE E R Location: ED HPI History of Present Illness Chief Complaint: Laceration Informant: patient Narrative Narrative: Patient present just after a work-related injury. She works at [employer] and she was breaking down boxes with a box knife and accidentally cut herself in theright thigh through her jeans. No difficulty walking or moving. Tetanus Immunization: <5 years 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-employment Allergy/AdvReac Type Severity Reaction Status Date / Time No Known Allergies Allergy Verified 02/07/23 20:04 Social History Smoking Status: Never smoker substance use type: does not use ROS ROS ED Constitutional Constitutional ED: Denies chills or fever(s) Musculoskeletal Musculoskeletal: Reports extremity pain; Denies neck pain Integumentary Reports as per HPI and laceration; Denies Abrasions or rash Neurologic Neurologic: Denies paresthesias or weakness EXAM Physical Exam Const Vital Signs: 02/07/23 20:05 Temperature 97.3 F L Temperature Source Temporal Pulse Rate 112 H Respiratory Rate 16 Blood Pressure 108/72 L Blood Pressure Mean 84 Pulse Ox 98 Positive well nourished and well developed General Appearance ED: well developed and NAD Neck full ROM and supple Back/Spine normal ROM and normal to inspection Extremity full ROM Extremity Narrative: Acute traumatic wound right anterior mid-proximal thigh. Painless full extension of the knee without pain or difficulty. All compartments soft and nondistended. Full range of motion throughout. Neuro oriented x3, no focal motor deficits and no sensory deficits noted Sensorium / Orientation: alert Psych mental status grossly normal and thought process normal Skin Skin Narrative: 0.25 cm laceration versus puncture wound to the anterior right thigh. Clean appearing, no foreign material, nontender, no active bleeding. Appears to be very superficial but full-thickness. Rashes: no rashes MDM MDM MDM Narrative Medical decision making narrative: This is a very short, superficial stab wound, she has no pain with flexing the quadriceps, indicating that she did not injure the muscle. This does not require suturing. Since it is a stab wound, we will cleansed thoroughly with chlorhexidine and nursing will close it with a Steri-Strip, she was given appropriate discharge instructions regarding keeping it covered and changing thedressing daily to inspect for signs of infection and to return if worse, and place antibiotic ointment on the wound with each dressing change, follow-up advised but I do not think she needs work restrictions other than to keep it covered and dressed. Discharge Plan Triage Chief Complaint: Laceration ED Provider: Bong Tillman Dx/Rx/DC Orders Clinical Impression: Puncture wound of right thigh Instructions: ED Puncture Wound (General) Primary Care Provider: Greyson Pimentel Referrals: [facility] [Group of Physicians] - 3-5 Days Greyson Pimentel MD [Primary Care Provider] - Disposition Disposition: Home, Self Care What to do if you have Problems For any increased pain, shortness of breath, bleeding, nausea or vomiting, chestpain, or any unexpected problems, contact your Primary Care Provider. Call [facility] ([phone]) or report to the closest Emergency Room. Call 911 if necessary. 02/07/232049 <Electronically signed by Bong Tillman MD> Cosigner Signature (if applicable): CC: Dr. Greyson Pimentel MD ~ Signed [facility] Work Phone: 1(958) 936-634406-05-2023 History of Present illness Narrative* Neda Molina PA-C - 01/19/2023 1:46 PM EDT Patient presents with chest pain for 1-2 months. She sometimes gets lightheaded with the pain. She had passed out at school a couple of times a few months ago but not recently. She has not been evaluated for this previously. Recommended being seen in pediatrics and she was scheduled today. documented in [facility] encounter[facility]04-18-[facility]23 History of Present illness Narrative* Natali Wise RT(R) - 12/02/2022 4:00 PM EDT Radiology Service Progress Note PATIENT NAME: Genet Mayberry DATE OF SERVICE: December 02, 2022 TIME: 3:48 PM PATIENT IDENTITY VERIFICATION COMPLETED USING TWO (2) IDENTIFIERS: Name and Date of confirmedby patient verbally. FALL SCREENING: Has the patient had 2 falls in the last year or 1 fall with injury or currently using an Ambulatory Assistive Device (Walker, Cane, Wheelchair, Crutches, etc.)? No PATIENT GENDER DATA: Female. status: : No status: NO. PATIENT RELEVANT IMPLANT DATA REVIEWED: Not Applicable RADIOLOGY DEPARTMENT: General X-ray: Exam(s) Completed: Upper Extremity X- Ray(s): Fingers/Thumb, left PERIPHERAL IV DATA: Not applicable SIGNED BY: RT Sussy(R) December 02, 2022 3:48 PM documented in this encounterWood [facility]03-03-2023 Miscellaneous Notes* Telephone Encounter - Sadia Stein LPN - 10/17/2022 8:32 AM EST Patient notified and verbalized understanding of instructions given.Sadia Stein LPN * Telephone Encounter - YANELY Balderrama - 10/17/2022 7:10 AM EST Please call parent and let them know that patient is positive for COVID-19. Isolate for 5 days. Wear mask for 5 more days. Supportive measures at home. Follow-up with manager documentation. documented in this encounterWood [facility]03-02-2023 History of Present illness Narrative* Keila Hairston APRN.XIAO - 10/16/2022 12:42 PM EST Subjective Sore Throat Associated symptoms include congestion, coughing, diarrhea and ear pain. Pertinent negatives include no shortness of breath or vomiting. Genet Mayberry is a 16 year old female who presents with recentexposure to COVID and sore throat, cough, nasal congestion, ear ache, chills, diarrhea. She has a fever at home temp max was 101 degrees F. She has not taken any medication for her symptoms. Review of Systems Constitutional: Positive for chills and fever. HENT: Positive for congestion, ear pain and sore throat. Respiratory: Positive for cough. Negative for shortness of breath. Cardiovascular: Negative. Gastrointestinal: Positive for diarrhea. Negative for nausea and vomiting. Musculoskeletal: Positive for myalgias. BP 100/74 Pulse 94 Temp 37.2 C (98.9 F) Resp 20 Wt 58.7 kg (129 lb 6.4 oz) LMP 11/28/2021(Approximate) SpO2 99% PAST MEDICAL HISTORY Diagnosis Date Respiratory syncytial virus (RSV) Unspecified asthma(493.90) resolved Varicella 05/03/12 PAST SURGICAL HISTORY Procedure Laterality Date NONE ALLERGIES Patient has no known allergies. MEDICATIONS albuterol HFA (VENTOLIN HFA) 90 mcg/actuation inhaler Inhale 2 puffs with spacer every 4-6 hours asneeded for cough or wheezing. inhalat.spacing dev,large mask (AEROCHAMBER Z-STAT PLUS-LG MSK) spcr Use with inhaler as directed. Yctjbwggffeaxnf-Wzwlvvqmi-GN (BROMFED DM) 2-30-10 mg/5 mL syrup Take 5 mL by mouth four times dailyas needed. FAMILY HISTORY Problem Relation Age of Onset No Known Problems Mother No Known Problems Father No Known Problems Sister No Known Problems Sister No Known Problems Sister No Known Problems Sister No Known Problems Brother No Known Problems Brother No Known Problems Brother No Known Problems Brother No Known Problems Brother No Known Problems Maternal Grandmother Heart Maternal Grandfather Hypertension Maternal Grandfather maternal and paternal side Diabetes Maternal Grandfather maternal and paternal side No Known Problems Paternal Grandmother Social History Tobacco Use Smoking status: Never Passive exposure: Yes Smokeless tobacco: Never Tobacco comments: outside -mom Vaping Use Vaping Use: Never used Substance Use Topics Alcohol use: No Drug use: No Objective Physical Exam Vitals and nursing note reviewed. Constitutional: General: She is not in acute distress. Appearance: Normal appearance. She is not toxic-appearing. HENT: Right Ear: Tympanic membrane, ear canal and external ear normal. Left Ear: Tympanic membrane, ear canal and external ear normal. Nose: Nose normal. Mouth/Throat: Mouth: Mucous membranes are moist. Pharynx: Uvula midline. No oropharyngeal exudate or posterior oropharyngeal erythema. Cardiovascular: Rate and Rhythm: Normal rate and regular rhythm. Heart sounds: Normal heart sounds. Pulmonary: Effort: Pulmonary effort is normal. No respiratory distress. Breath sounds: Normal breath sounds. No wheezing or rales. Musculoskeletal: Cervical back: Neck supple. Lymphadenopathy: Cervical: No cervical adenopathy. Skin: General: Skin is warm and dry. Findings: No erythema or rash. Neurological: Mental Status: She is alert. ASSESSMENT/PLAN: 1. Sore throat - ICD9: 462, ICD10: J02.9 (primary diagnosis) - suspect viral - Alere Strep Test negative, no culture pending - Discussed supportive care treatment with fluids, rest and analgesia. - STREP A MOLECULAR (POC) 2. Viral URI with cough - ICD9: 465.9, ICD10: J06.9 - Discussed viral etiology and rationale for treatment. - Symptomatic treatment with prn analgesia - Supportive care with fluids and rest - COVID, FLU A/B + RSV, ROUTINE - 2019 CORONAVIRUS - ROUTINE FLU A/B + RSV - [id number] 2 MG-30 MG-10 MG/5 ML ORAL SYRUP - Follow-up with your PCP in 3-5 days if symptoms have not improved or sooner if symptoms worsen - Discussed red flags and need for immediate medical evaluation if any occur. - Discussed supportive care treatment with fluids, rest and analgesia. - Discussed expected course of illness Keila Hairston APRN.XIAO documented in this encounterWood [facility] Hospital03-02-2023 Instructions* Patient Instructions* Keila Hairston APRN.CNP - 10/16/2022 12:40 PM EST ASSESSMENT/PLAN: 1. Sore throat - ICD9: 462, ICD10: J02.9 (primary diagnosis) - suspect viral - Alere Strep Test negative, no culture pending - Discussed supportive care treatment with fluids, rest and analgesia. - STREP A MOLECULAR (POC) 2. Viral URI with cough - ICD9: 465.9, ICD10: J06.9 - Discussed viral etiology and rationale for treatment. - Symptomatic treatment with prn analgesia - Supportive care with fluids and rest - COVID, FLU A/B + RSV, ROUTINE - 2019 CORONAVIRUS - ROUTINE FLU A/B + RSV - [id number] 2 MG-30 MG-10 MG/5 ML ORAL SYRUP - Follow-up with your PCP in 3-5 days if symptoms have not improved or sooner if symptoms worsen - Discussed red flags and need for immediate medical evaluation if any occur. - Discussed supportive care treatment with fluids, rest and analgesia. - Discussed expected course of illness Keila Hairston APRN.[employer] Treatment for Viral Upper Respiratory Tract Infections Your body will kill off the virus by itself. Additionally, you can prime your body's immune system.This may help you get better more quickly. Drink lots of fluids Make sure you are eating well Get plenty of rest We do not have any medications that kill off these viruses. Antibiotics are used to treat bacterialinfections; however, they are not active against viral infections. There are some things that mighthelp you feel better, though. Vaporizers, humidifiers, hot showers, and hot fluids help open respiratory and sinus passages Newman Nasal Brooks may offer relief of nasal and head congestion Domingo's Vapor Rub may relieve congestion Tylenol and Advil help control fevers and headaches Salt water gargles help relieve sore throats Chloraceptic spray or throat lozenges may also help relieve sore throat symptoms Occasionally, viral infections turn into something more serious. You should see your doctor or return to the Urgent Care if: You have fevers for longer than five days You have fevers above 102 degrees You are still sick after 10 days You have shortness of breath or wheezing After several days you are getting worse rather than better documented in this encounterWood [facility]06-20-2022 Miscellaneous Notes* Telephone Encounter - Greyson Pimentel MD - 02/03/2022 1:47 PM EDT The following approved medication requests have been transmitted electronically. Pending Prescriptions: Disp Refills albuterol HFA (VENTOLIN HFA) 90 18 g 0 mcg/actuation inhaler Sig: Inhale 2 puffs with spacer every 4-6 hours as needed for cough or wheezing. JAQUELIN: No Greyson Pimentel MD * Telephone Encounter - Lindsey Kirkpatrick LPN - 02/03/2022 1:30 PM EDT Mother calling in states pt needs new Albuterol inhaler. Had a cold and was using it a lot. Breathing is much better now. Last WCC: 01/16/22 Verify RX Benefits Completed Last medication refill date: 12/26/21 Requesting 30 day supply Retail pharmacy updated: Completed Patient aware RX will be sent to pharmacy. No need to notify patient. Immunizations due: ASTHMA ACTION PLAN Never done GC (GONORRHEA) SCREENING (<18) Never done CHLAMYDIA SCREENING (<18) Never done MENINGOCOCCAL B: Consider based on risk(2 of 2 - Risk Bexsero 2-dose series) due on 05/16/2021 COVID-19 VACCINE(3 - Booster for Pfizer series) due on 06/07/2021 Samantha Kirkpatrick LPN documented in this encounterWood [facility] Hospital06-02-2022 Instructions* Patient Instructions* Loy Barrera MD - 01/16/2022 5:29 PM EDT Images from the original note were not included. 5 to Go!TM Healthy Kids Inside & Out 5 Eat FIVE fruits and veggies a day 4 Give and get FOUR compliments a day 3 Consume THREE calcium products a day 2 Limit media time to TWO hours a day 1 Get at least ONE hour of exercise a day 0 Consume ZERO sugar-sweetened drinks Go! Be healthy, inside and out! [email or web address] Adolescent to Adult Transition Program [facility] cares about helping you and each of our adolescents and young adults make a smoothtransition to adult care. If your current doctor is a manager documentation, we will work with you to decide the correct age for moving your care to a doctor or other provider who takes care of adults. We suggest that this move take place before age 22. Our office policy is to prepare you to move to a doctor or other provider who takes care of adults. This includes helping you find a doctor or other provider, sending medical records, and talking about any special needs with the new doctor or other provider. If your current doctor is in family medicine, [facility] will prepare you and your family forthe transition to being an adult patient. You will be able to make your own healthcare decisions and will have an adult care team that meets your personal healthcare needs. At age 18, by law, we need your agreement to discuss personal health information with your family. We understand and respect that you may want to include your family in healthcare choices and will partner with you on how and when to include your family in decisions. We will make sure you know what changes to expect. We will also strive to make sure that all care team providers know your needs. We will help you find community resources and specialty care, if needed. Having your information before you come for the first time helps us be sure we do not miss any details. If joining our practice from outside [facility], we will help you request your medical record from past doctor(s) before your first visit. We will make every effort to work with your past providers to ensure a smooth transition and experience. We are always here for you. If you have any questions or concerns, please contact your primary careteam or e-mail Got Transition is the federally funded national resource center on health care transition (HCT). Its aim is to improve transition from pediatric to adult health care through the use of evidence-driven strategies for health day care aide, youth, young adults, and their families. www.[email or web address] [email or web address]://[email or web address]/resource/?con-kuzpbk-vbvdksy Healthy Children Ages & Stages Texting Program HealthyChildren.org is an AAP ([place] [employer]) parenting website. It is a great resource for information. They have a new Ages & Stages texting program available to parents. Fill out the information in the link below to start getting helpful tips and resources from AAP experts right to your phone. Be sure to include your child's age so they can send you age appropriate information. https://[email or web address].org/[place]/tips-tools/ErtkxnmZjmnaquj-Apfqpcu-Mlpie am/Pages/default.aspx documented in this encounter[facility] History of Present illness Narrative* Loy Barrera MD - 01/16/2022 4:11 PM EDT WELL VISIT PEDIATRIC FEMALE 14-17 YRS OLD SERVICE DATE: 01/16/2022 Genet is a 16 year old female who presents today for well exam. SUBJECTIVE CONCERNS: no concerns HISTORY ACTIVE PROBLEM LIST Intermittent Asthma, Well Controlled - 11/14/2021 [facility] (Well Child Check) - 09/01/2014 PAST MEDICAL HISTORY Diagnosis Date Respiratory syncytial virus (RSV) Unspecified asthma(493.90) resolved Varicella 05/03/12 PAST SURGICAL HISTORY Procedure Laterality Date NONE ALLERGIES No Known Allergies Medications: albuterol HFA (VENTOLIN HFA) 90 mcg/actuation inhaler Inhale 2 puffs with spacer every 4-6 hours asneeded for cough or wheezing. inhalat.spacing dev,large mask (AEROCHAMBER Z-STAT PLUS-LG MSK) spcr Use with inhaler as directed. FAMILY HISTORY Problem Relation Age of Onset No Known Problems Mother No Known Problems Father No Known Problems Sister No Known Problems Sister No Known Problems Sister No Known Problems Sister No Known Problems Brother No Known Problems Brother No Known Problems Brother No Known Problems Brother No Known Problems Brother No Known Problems Maternal Grandmother Heart Maternal Grandfather Hypertension Maternal Grandfather maternal and paternal side Diabetes Maternal Grandfather maternal and paternal side No Known Problems Paternal Grandmother Social History Social History Narrative Not on file Smoking Exposure: Does your child spend a significant amount of time in the care of anyone who smokes? No School: Grade: 11th; grades A-B. Physical Activity: more than 1 hour of physical activity per day Screen Time totaling more than 2 hours of screen time per day. Safety: Pediatric SDOH - Response to gun questions 01/16/2022 Are there any guns kept in or around your home or where your child spends time? No Reviewed seat belts, bike helmets and smoke detectors Diet: -Eats 2 meals per day and 2-3 snacks per day -Typical beverages include water -Fruits and vegetables are eaten with nearly every meal -# of fast food meals/week: 2 -# of days/week that family has dinner together: 7 Elimination: no concerns, normal size and consistency Dental: dental care not current Sleep: -no sleep concerns Gynecological history: LMP: 12/26/21 Cycles are irregular and last varied days. Dysmenorrhea: severe Heavy periods: yes Substance use: none High risk behaviors: none Sexual History: Attraction: both male and female Sexually Active: Yes Body image: satisfactory Screening tools reviewed and discussed with patient/qwrrvi-IOL-K and Social Determinants of Health.Please see Patient Entered Data. REVIEW OF SYSTEMS GENERAL: No fevers EYES: No vision concerns ENT: No hearing concerns RESPIRATORY: Negative for cough, wheezing or respiratory distress CARDIOVASCULAR: Positive for feeling like heart is racing SKIN: Negative for lesions, rash, and itching ENDOCRINE: No growth concerns OBJECTIVE Physical Exam: BP 104/66 Pulse 88 Temp 36.5 C (97.7 F) (Temporal Artery) Resp 18 Ht 159.8 cm (5' 2.91) Wt 61 kg (134 lb 8 oz) LMP 11/28/2021 (Approximate) BMI 23.89 kg/m Blood pressure percentiles are 31 % systolic and 57 % diastolic based on the 2017 AAP Clinical Practice Guideline. This reading is in the normal blood pressure range. Last BMI: Wt: 59.9 kg (132 lb) (68 %, Z= 0.47)* BMI: 23.27 kg/(m^2) Last 4 Encounter Wt Readings: Date: Wt: 11/14/2021 59.9 kg (132 lb) (68 %, Z= 0.47)* 09/15/2021 60.3 kg (133 lb) (70 %, Z= 0.53)* 05/23/2021 62 kg (136 lb 9.6 oz) (76 %, Z= 0.69)* 05/22/2021 61.6 kg (135 lb 12.8 oz) (75 %, Z= 0.66)* Last 4 Encounter Ht Readings: Date: Ht: 11/14/2021 160.4 cm (5' 3.15) (35 %, Z= -0.39)* 04/18/2021 161.6 cm (5' 3.62) (43 %, Z= -0.17)* 08/31/2014 135.9 cm (4' 5.5) (44 %, Z= -0.14)* 05/14/2011 117.5 cm (3' 10.25) (46 %, Z= -0.11)* GENERAL: alert, well appearing, in no distress HABITUS: normal build HEAD: normocephalic LEFT EYE: no drainage noted, no conjunctival injection noted, pupil round and reactive to light, fundus benign; RIGHT EYE: no drainage noted, no conjunctival injection noted, pupil round and reactiveto light, fundus benign; NO ADDITIONAL EYE FINDINGS LEFT EAR: pinna normal, auditory canal normal, tympanic membrane clear, no effusion noted, RIGHT EAR: pinna normal, auditory canal normal, tympanic membrane clear, no effusion noted NOSE/SINUSES: nares normal, mucosa normal, no drainage noted OROPHARYNX: lips without lesions noted, gums/mucosa normal, oropharynx without erythema or exudates NECK/ADENOPATHY: neck supple, no adenopathy noted CHEST/LUNGS: lungs clear to auscultation CARDIOVASCULAR: regular rate and rhythm, no murmur, capillary refill less than 2 seconds ABDOMEN: soft, nontender, bowel sounds normal, no masses, no organomegaly GENITILIA: DEFERRED EXAM MUSCULOSKELETAL: extremities with full range of motion present throughout, spine without scoliosis NEUROLOGICAL: cranial nerves II-XII grossly intact, deep tendon reflexes 2+/4+ throughout, muscle mass and tone normal SKIN: normal color, no rash, no jaundice ASSESSMENT & PLAN Encounter Diagnosis ICD-10-CM 1. Routine physical examination Z00.00 78 %ile (Z= 0.77) based on CDC (Girls, 2-20 Years) BMI-for-age based on BMI available as of 01/16/2022. Genet is normal weight (BMI 5th% - 84th%): -To maintain a healthy weight, discussed limiting screen time to less than 2 hours per day, physical activity for at least one hour per day, 5 servings of fruits and vegetables per day, 3 meals per day, family meals ar home and no sugar containing beverages Based on PHQ-A Score: 15 (recommended cut off score is 11) and interview, presentation is consistent with possible depression: -Recommended scheduling a visit with the patient's PCP for evaluation. The patient is already receiving counseling. Recommended continuing this. - Adolescent anticipatory guidance discussed. - Discussed diet and safety. - Dental care discussed. - Bright Futures handout given (See Patient Instructions). - No immunization ordered at this visit. - Follow up in one year for routine physical. ADDITIONAL PLAN 1. COVID-19 booster and meningococcal B vaccination recommended. The patient will discuss this withher parent (not present at today's visit) and schedule a visit if desired. 2. Work form signed. 3. Recommended scheduling a visit with the patient's PCP to evaluate possibility of depression. Note that no suicidal ideation was present based on the PHQ-9 survey. This note was partially generated using [employer] voice recognition system, and there may be some incorrect words, spellings, and punctuation that were not noted in checking the note before saving. Loy Barrera M.D. documented in this encounterWood [facility] Hospital05-12-2022 Miscellaneous Notes* Telephone Encounter - Greyson Pimentel MD - 12/26/2021 9:06 AM EDT The following approved medication requests have been transmitted electronically. Pending Prescriptions: Disp Refills albuterol HFA (VENTOLIN HFA) 90 18 g 0 mcg/actuation inhaler [Pharmacy Med Name: Ventolin HFA 90 mcg/actuation aerosol inhaler] Sig: Inhale 2 puffs with spacer every 4-6 hours as needed for cough or wheezing. JAQUELIN: No Greyson Pimentel MD * Telephone Encounter - Radha Rust RN - 12/26/2021 9:02 AM EDT Last [facility]: 04/18/21 Verify RX Benefits Completed Last medication refill date: 11/14/21 Requesting 30 day supply Retail pharmacy updated: Completed Patient aware RX will be sent to pharmacy. No need to notify patient. Immunizations due: ASTHMA ACTION PLAN Never done GC (GONORRHEA) SCREENING (<18) Never done CHLAMYDIA SCREENING (<18) Never done MENINGOCOCCAL B: Consider based on risk(2 of 2 - Risk Bexsero 2-dose series) due on 05/16/2021 COVID-19 VACCINE(3 - Booster for Pfizer series) due on 06/07/2021 Radha Rust RN documented in this encounterWood [facility]03-31-[facility]22 History of Present illness Narrative* Justine Hebert APRN.XIAO - 11/14/2021 5:43 PM EDT PEDIATRIC SICK VISIT SERVICE DATE: 11/14/2021 SUBJECTIVE: Genet Mayberry is a 15 year old female accompanied by mother for evaluation of lower back pain. She reports pain that started about 3 days ago. No known injury. She is unable to fully bend over. She reports a cramping type pain like a muscle spasm. She put a cream on her back but it didn't help. No known injury. She needs a refill on albuterol inhaler. Reports albuterol use of less than once/week. Asthma well controlled. She is also due for 2nd HPV vaccine today. History was obtained from: mother HISTORY: ACTIVE PROBLEM LIST [facility] (Well Child Check) PAST MEDICAL HISTORY Diagnosis Date Respiratory syncytial virus (RSV) Unspecified asthma(493.90) resolved Varicella 05/03/12 PAST SURGICAL HISTORY Procedure Laterality Date NONE Allergies: ALLERGIES No Known Allergies Medications: albuterol HFA (PROVENTIL HFA, VENTOLIN HFA) 90 mcg/actuation inhaler Inhale 2 puffs with spacer every 4-6 hours as needed for cough or wheezing. cyclobenzaprine (FLEXERIL) 5 mg tablet Take 1 tablet by mouth three times daily for 5 days. inhalat.spacing dev,large mask (AEROCHAMBER Z-STAT PLUS-LG MSK) spcr Use with inhaler as directed. REVIEW OF SYSTEMS: GENERAL: Negative for fevers or recent illness HEENT: Positive for: congestion and rhinorrhea RESPIRATORY: Positive for intermittent cough GI: Negative for vomiting or diarrhea. SKIN: Negative for lesions, rash, and itching. OBJECTIVE: BP 102/60 Pulse 88 Temp 37.2 C (98.9 F) (Temporal Artery) Resp 16 Ht 160.4 cm (5' 3.15) Wt 59.9 kg (132 lb) LMP 10/02/2021 (Approximate) BMI 23.27 kg/m General: alert and active in no apparent distress Eyes: conjunctiva clear, PERRL Ears: TMs translucent: bilaterally TMs clear: bilaterally Nose: no erythema or exudate OP: moist without lesions Neck: supple, no adenopathy Lungs: clear to auscultation bilaterally, good air exchange, no wheezes CVS: Normal rate, regular rhythm, no murmur Abdomen: soft, nondistended, nontender, no hepatosplenomegaly or masses Skin: No rashes, lesions or skin changes Spine: Pain with palpation to bilateral lower lumbar area, no pain to sacral area, pain with spinalflexion and limited ROM, back symmetric, no curvature Neuro: No focal deficits or abnormal findings present ASSESSMENT/PLAN: Encounter Diagnosis ICD-10-CM 1. Bilateral low back pain, unspecified chronicity, unspecified whether sciatica present M54.50 cyclobenzaprine (FLEXERIL) 5 mg tablet 2. Intermittent asthma, well controlled J45.20 albuterol HFA (PROVENTIL HFA, VENTOLIN HFA) 90 mcg/actuation inhaler inhalat.spacing dev,large mask (AEROCHAMBER Z-STAT PLUS-LG MSK) spcr 3. Encounter for immunization Z23 HUMAN PAPILLOMAVIRUS 9-VALENT HPV IM - Recommend heat or ice, naproxen for back pain - May take flexeril three times daily for up to 5 days - Albuterol refill sent along with spacer. Patient instructed on proper use of spacer. - Parent was counseled atbu-aj-kbma by myself for the following immunizations, including side effects: HPV. Parent consents for immunization and understands risks and benefits. A VIS sheet on each immunization was given to the parent. - Return to clinic for persistent or worsening symptoms, or other concerns SIGNATURE: Justine Hebert APRN.CNP PATIENT NAME: Genet Mayberry DATE: November 14, 2021 TIME: 5:43 PM documented in this encounterWood [facility] Hospital03-31-2022 Instructions* Patient Instructions* Justine Hebert APRN.CNP - 11/14/2021 5:43 PM EDT 5 to Go!TM Healthy Kids Inside & Out 5 Eat FIVE fruits and veggies a day 4 Give and get FOUR compliments a day 3 Consume THREE calcium products a day 2 Limit media time to TWO hours a day 1 Get at least ONE hour of exercise a day 0 Consume ZERO sugar-sweetened drinks Go! Be healthy, inside and out! [email or web address] documented in this encounterWood County HospitalEvaluation note* Diagnosis Bilateral low back pain, unspecified chronicity, unspecified whether sciatica present- Primary Intermittent asthma, well controlled Unspecified asthma Encounter for immunization Need for other specified prophylactic vaccination against single bacterial disease [facility]* Diagnosis Intermittent asthma, well controlled Unspecified asthma documented [facility] this encounter [facility]* Diagnosis Routine physical examination- Primary Routine general medical examination at a health care facility documented [facility] this encounter [facility]* Diagnosis Intermittent asthma, well controlled Unspecified asthma documented [facility]* Diagnosis Sore throat- Primary Acute pharyngitis Viral URI with cough Acute upper respiratory infections of unspecified site documented [facility] this encounter [facility]* Diagnosis Chest pain, unspecified type- Primary documented in this encounter [facility] noteNo assessment information availableWRegional Medical Center Work Phone: Evaluation note* Diagnosis Missed period- Primary Irregular menstrual cycle Viral illness Unspecified viral infection, in conditions classified elsewhere and of unspecified site Positive test examination or test, positive result Left lower quadrant abdominal pain [facility]* Diagnosis Supervision of normal first teen in second trimester- Primary Screening, , for anatomic survey Encounter for anatomic survey 15 weeks gestation of state, incidental documented in this encounter [facility]* Diagnosis 19 weeks gestation of - Primary state, incidental Encounter for supervision of normal first in second trimester Supervision of normal first documented in this encounter [facility]* Diagnosis Encounter for anatomic survey- Primary Screening, , for anatomic survey Encounter for anatomic survey 21 weeks gestation of state, incidental documented in this encounter [facility]* Diagnosis High risk teen in third trimester- Primary Limited care in third trimester Poor social situation Unspecified psychosocial circumstance Need for DTaP vaccine Need for prophylactic vaccination with combined fefucqywev-jnkmzds-erdquekih (DTP) vaccine Need for vaccination Need for prophylactic vaccination and inoculation against unspecified single disease 32 weeks gestation of state, incidental documented in this encounter [facility]* Diagnosis High risk teen in third trimester- Primary 35 weeks gestation of state, incidental Anemia during in third trimester documented [facility] this encounter [facility]* Diagnosis Supervision of normal first teen in third trimester- Primary 36 weeks gestation of state, incidental Anemia complicating , third trimester Rubella non-immune status, antepartum Other specified complication, antepartum Intermittent asthma, well controlled Unspecified asthma [facility]* Diagnosis Finger injury, left, initial encounter documented [facility] this [facility]* Diagnosis 37 weeks gestation of - Primary state, incidental Supervision of normal first teen in third trimester documented [facility]* Diagnosis care and examination- Primary Routine follow-up Encounter for initial prescription of intrauterine contraceptive device (IUD) documented in this encounter [facility]* Diagnosis Encounter for IUD insertion- Primary Encounter for insertion of intrauterine contraceptive device documented [facility]* Diagnosis Surveillance of previously prescribed intrauterine contraceptive device- Primary Encounter for routine checking of intrauterine contraceptive device (IUD) Abnormal uterine bleeding Unspecified disorder of menstruation and other abnormal bleeding from female genital tract Vaginal discharge Leukorrhea, not specified as infective documented in this encounter [facility]* Diagnosis Encounter for IUD removal- Primary Encounter for removal of intrauterine contraceptive device documented in [facility]* Diagnosis Encounter for IUD removal- Primary Encounter for removal of intrauterine contraceptive device [facility] instructionsAdditional Instructions 1. If you develop severe pain, nausea and vomiting return to the emergency department because this may represent ovarian torsion 2. Follow-up with your ENGRAVING PLATE MAKER in the next 5 to 7 daysWReg[facility] Center Work Phone: Reason for referral (narrative)* Diagnostic Procedure Only (Routine) - Pending Review Specialty Diagnoses / Procedures Referred By Mil christy Referred To Contact [facility] Diagnoses Screening, , for anatomic survey Procedures OBSTETRIC ULTRASOUND WHI US PREG UTERUS AFTER 1ST TRIMEST GESTATION Concepcion Moralez MD [address] [place] [address] [facility] [address] [place] [address] Referral ID Status Reason Start Date Expiration Date Visits Requested Visits Authorized [id number] Pending Review Auto-Generat ed Referral 01/08/2024 12/08/2024 1 1 [facility] for referral (narrative)* Diagnostic Procedure Only (Urgent) - Closed Specialty Diagnoses / Procedures Referred By Mil t Referred To Contact XR IMAGING Diagnoses Finger injury, left, initial encounter Procedures XR DIGIT GENERAL 3V FRONTAL/LAT/OBL LEFT RADEX FINGR MINIMUM 2 VIEWS Neli Montes APRN.[employer] [address] [id number] [place] [address] Referral ID Status Reason Start Date Expiration Date V isits Requested Visits Authorized [id number] Closed Auto-Generate d Referral 12/02/2022 01/01/2024 1 1 [facility] for referral (narrative)* Outpatient Procedure (Routine) - Authorized Specialty Diagnoses / Procedures Referred By Mil t Referred To Contact [facility] Diagnoses care and examination Encounter for initial prescription of intrauterine contraceptive device (IUD) Procedures INSERT INTRAUTERINE DEVICE LEVONORGESTREL IU 52MG 5 YR INSERT INTRAUTERINE DEVICE Sy Pennington MD [address] [place] [address] [facility] [address] [address] Referral ID Status Reason Start Date Expiration Date Visits Requested Visits Authorized [id number] Authorized Auto-Generat ed Referral 4 07/04/2025 1 1 [facility] for referral (narrative)* Outpatient Procedure (Routine) - New Request Specialty Diagnoses / Procedures Referred By Contneyda t Referred To Contact [facility] Diagnoses Encounter for IUD insertion Procedures INSERT INTRAUTERINE DEVICE LEVONORGESTREL IU 52MG 5 YR INSERT INTRAUTERINE DEVICE Bobby Chu APRN.[employer] [address] [place] [address] [id number] [place] [address] Referral ID Status Reason Start Date Expiration Date Visits Requested Visits Authorized [id number] New Request Auto-Generat ed Referral 07/22/2024 07/22/2025 1 1 [facility] for referral (narrative)* Diagnostic Procedure Only (Routine) - Authorized Specialty Diagnoses / Procedures Referred By Contac t Referred To Contact [facility] Diagnoses Encounter for routine checking of intrauterine contraceptive device (IUD) Procedures PELVIC US WHI US PELVIC NONOBSTETRIC REAL-TIME IMAGE COMPLETE Bobby Chu APRN.CNP [address] [place] [address] [facility] [address] [place] [address] Referral ID Status Reason Start Date Expiration Date Visits Requested Visits Authorized [id number] Authorized Auto-Generat ed Referral 08/26/2024 08/26/2025 1 1 [facility] for referral (narrative)No reason for referral information availableWRegional Medical Center Work Phone: Reusuo for visit Narrative* Diagnostic Procedure Only (Urgent) - Closed Specialty Diagnoses / Procedures Referred By Contac t Referred To Contact XR IMAGING Diagnoses Finger injury, left, initial encounter Procedures XR DIGIT GENERAL 3V FRONTAL/LAT/OBL LEFT RADEX FINGR MINIMUM 2 VIEWS Neli Montes APRN.[employer] [address] [place] [address] [place] [id number] Referral ID Status Reason Start Date Expiration Date V isits Requested Visits Authorized [id number] Closed Auto-Generate d Referral 12/02/2022 01/01/2024 1 1 [facility] Summary Purpose Family History No Family History Records FoundNo Family History Records FoundNo Family History Records Found Advance Directives No Advanced Directives Records Found Advance Directive Response Recorded Date/ Time Advance Directives No September 5:40pm Living Will No February 07, 2023 8:32pm Power of [employer] Helper No February 07 8:32pm Advance Directive Response Recorded Date/ Time Advance Directives No September 4:40pm Living Will No July 16 023 8:46pm Power of [employer]ing [employer] Helper No July 16, 2023 8:46pm Advance Directive Response Recorded Date/ Time Do you have a Healthcare Power of Cart[employer]ing Machine Helper? No May 15, 2025 3:16pm Advance Directives No September 5:40pm Reason for Referral Specialty Diagnoses / Procedures Referred By Contac t Referred To Contact Diagnoses Intermittent asthma, well controlled Greyson Pimentel MD [address] [place] [address] Referral ID Status Reason Start Date Expiration Date Visits Re quested Visits Authorized [id number] Closed 1 1 Specialty Diagnoses / Procedures Referred By Mil christy Referred To Contact Diagnoses Positive test Procedures CONSULT TO ENGRAVING PLATE MAKER OFFICE/OUTPATIENT [facility] 60 MINUTES Stanislav Thompson APRN.[employer] [address] [place] [address] Referral ID Status Reason Start Date Expiration Date Visits Requested Visits Authorized [id number] Authorized PCP Requested Referral Auto-Generate d Referral 11/07/2023 11/06/2024 1 1 Health Concerns Infection Onset Date Last Indicated Resolved Time COVID-19 Confirmed 10/16/2022 10/16/2022 Chief Complaint and Reason for Visit Chief Complaint LAC TO R THIGH Chief Complaint N/V/D Chief Complaint Admit Date abd pain May 15, 2025 1:05pm Additional Source Comments INFORMATION SOURCE (unrecogn ized section and content) DATE CREATED AUTHOR 01/11/2021 [facility] DATE CREATED AUTHOR AUTHOR'S ORGANIZ ATION 05/21/2025 [facility] DATE CREATED AUTHOR AUTHOR'S ORGANIZ ATION 05/21/2025 [facility] Source Comments (unrecognize d section and content) In the event this informatio n is protected by the Federal Confidentiality of Alcohol and Drug Abuse Patient Records regulations: The Federal rules restrict any use of the information to criminally investigate or prosecute any alcohol or drug abuse patient.[facility] HospitalIn the event this information is protected by the Federal Confidentiality of Alcohol and Drug Abuse Patient Records regulations: The Federal rules restrict any use of the information to criminally investigate or prosecute any alcohol or drug abuse patient.[facility] HospitalIn the event this information is protected by the Federal Confidentiality of Alcohol and Drug Abuse Patient Records regulations: The Federal rules restrict any use of the information to criminally investigate or prosecute any alcohol or drug abuse patient.[facility] HospitalIn the event this information is protected by the Federal Confidentiality of Alcohol and Drug Abuse Patient Records regulations: The Federal rules restrict any use of the information to criminally investigate or prosecute any alcohol or drug abuse patient.[facility] HospitalIn the event this information is protected by the Federal Confidentiality of Alcohol and Drug Abuse Patient Records regulations: The Federal rules restrict any use of the information to criminally investigate or prosecute any alcohol or drug abuse patient.[facility] HospitalIn the event this information is protected by the Federal Confidentiality of Alcohol and Drug Abuse Patient Records regulations: The Federal rules restrict any use of the information to criminally investigate or prosecute any alcohol or drug abuse patient.[facility] HospitalIn the event this information is protected by the Federal Confidentiality of Alcohol and Drug Abuse Patient Records regulations: The Federal rules restrict any use of the information to criminally investigate or prosecute any alcohol or drug abuse patient.[facility] HospitalIn the event this information is protected by the Federal Confidentiality of Alcohol and Drug Abuse Patient Records regulations: The Federal rules restrict any use of the information to criminally investigate or prosecute any alcohol or drug abuse patient.[facility] HospitalIn the event this information is protected by the Federal Confidentiality of Alcohol and Drug Abuse Patient Records regulations: The Federal rules restrict any use of the information to criminally investigate or prosecute any alcohol or drug abuse patient.[facility] HospitalIn the event this information is protected by the Federal Confidentiality of Alcohol and Drug Abuse Patient Records regulations: The Federal rules restrict any use of the information to criminally investigate or prosecute any alcohol or drug abuse patient.[facility] HospitalIn the event this information is protected by the Federal Confidentiality of Alcohol and Drug Abuse Patient Records regulations: The Federal rules restrict any use of the information to criminally investigate or prosecute any alcohol or drug abuse patient.[facility] HospitalIn the event this information is protected by the Federal Confidentiality of Alcohol and Drug Abuse Patient Records regulations: The Federal rules restrict any use of the information to criminally investigate or prosecute any alcohol or drug abuse patient.[facility] HospitalIn the event this information is protected by the Federal Confidentiality of Alcohol and Drug Abuse Patient Records regulations: The Federal rules restrict any use of the information to criminally investigate or prosecute any alcohol or drug abuse patient.[facility] HospitalIn the event this information is protected by the Federal Confidentiality of Alcohol and Drug Abuse Patient Records regulations: The Federal rules restrict any use of the information to criminally investigate or prosecute any alcohol or drug abuse patient.[facility] HospitalIn the event this information is protected by the Federal Confidentiality of Alcohol and Drug Abuse Patient Records regulations: The Federal rules restrict any use of the information to criminally investigate or prosecute any alcohol or drug abuse patient.[facility] HospitalIn the event this information is protected by the Federal Confidentiality of Alcohol and Drug Abuse Patient Records regulations: The Federal rules restrict any use of the information to criminally investigate or prosecute any alcohol or drug abuse patient.[facility] HospitalIn the event this information is protected by the Federal Confidentiality of Alcohol and Drug Abuse Patient Records regulations: The Federal rules restrict any use of the information to criminally investigate or prosecute any alcohol or drug abuse patient.[facility] HospitalIn the event this information is protected by the Federal Confidentiality of Alcohol and Drug Abuse Patient Records regulations: The Federal rules restrict any use of the information to criminally investigate or prosecute any alcohol or drug abuse patient.[facility] HospitalIn the event this information is protected by the Federal Confidentiality of Alcohol and Drug Abuse Patient Records regulations: The Federal rules restrict any use of the information to criminally investigate or prosecute any alcohol or drug abuse patient.[facility] HospitalIn the event this information is protected by the Federal Confidentiality of Alcohol and Drug Abuse Patient Records regulations: The Federal rules restrict any use of the information to criminally investigate or prosecute any alcohol or drug abuse patient.[facility] HospitalIn the event this information is protected by the Federal Confidentiality of Alcohol and Drug Abuse Patient Records regulations: The Federal rules restrict any use of the information to criminally investigate or prosecute any alcohol or drug abuse patient.[facility] HospitalIn the event this information is protected by the Federal Confidentiality of Alcohol and Drug Abuse Patient Records regulations: The Federal rules restrict any use of the information to criminally investigate or prosecute any alcohol or drug abuse patient.[facility] HospitalIn the event this information is protected by the Federal Confidentiality of Alcohol and Drug Abuse Patient Records regulations: The Federal rules restrict any use of the information to criminally investigate or prosecute any alcohol or drug abuse patient.[facility] HospitalIn the event this information is protected by the Federal Confidentiality of Alcohol and Drug Abuse Patient Records regulations: The Federal rules restrict any use of the information to criminally investigate or prosecute any alcohol or drug abuse patient.[facility] HospitalIn the event this information is protected by the Federal Confidentiality of Alcohol and Drug Abuse Patient Records regulations: The Federal rules restrict any use of the information to criminally investigate or prosecute any alcohol or drug abuse patient.[facility] HospitalIn the event this information is protected by the Federal Confidentiality of Alcohol and Drug Abuse Patient Records regulations: The Federal rules restrict any use of the information to criminally investigate or prosecute any alcohol or drug abuse patient.[facility] HospitalIn the event this information is protected by the Federal Confidentiality of Alcohol and Drug Abuse Patient Records regulations: The Federal rules restrict any use of the information to criminally investigate or prosecute any alcohol or drug abuse patient.[facility] HospitalIn the event this information is protected by the Federal Confidentiality of Alcohol and Drug Abuse Patient Records regulations: The Federal rules restrict any use of the information to criminally investigate or prosecute any alcohol or drug abuse patient.[facility] HospitalIn the event this information is protected by the [facility] Confidentiality of Alcohol and Drug Abuse Patient Records regulations: The Federal rules restrict any use of the information to criminally investigate or prosecute any alcohol or drug abuse patient.[facility] HospitalIn the event this information is protected by the Federal Confidentiality of Alcohol and Drug Abuse Patient Records regulations: The Federal rules restrict any use of the information to criminally investigate or prosecute any alcohol or drug abuse patient.[facility] Care Teams (unrecognized sec tion and content) School Bus Technician Relationship Specialty Start Date End Date Greyson Pimentel MD [address] [place], [place] [id number] PCP - General 06/01/08 School Bus Technician Relationship Specialty Start Date End Date Greyson Pimentel MD [address], [place] [id number] PCP - General 06/01/08 School Bus Technician Relationship Specialty Start Date End Date Greyson Pimentel MD [address], [place] [id number] PCP - General 06/01/08 School Bus Technician Relationship Specialty Start Date End Date Greyson Pimentel MD [address] [place] [address] PCP - General 06/01/08 School Bus Technician Relationship Specialty Start Date End Date Greyson Pimentel MD [address] [place] [address] PCP - General 06/01/08 School Bus Technician Relationship Specialty Start Date End Date Greyson Pimentel MD [address] [place] [address] PCP - General 06/01/08 Team Status: Active Member Role Status Dates Dr. Greyson Pimentel MD Family Provider Active Dr. Greyson Pimentel MD Primary Care Provider Active Team Status: Inactive Member Role Status Dates Dr. Greyson Pimentel MD Primary Care Provider Active Dr. Bong Tillman MD Emergency Provider Active [employer] Technician Relationship Specialty Start Date End Date Greyson Pimentel MD [address] [place] [address] PCP - General 06/01/08 Team Status: Inactive Member Role Status Dates Dr. Greyson Pimentel MD Primary Care Provider Active Gatito Colin MD Emergency Provider Active [employer] Bus Technician Relationship Specialty Start Date End Date Greyson Pimentel MD [address] [place] [address] PCP - General 06/01/08 School Bus Technician Relationship Specialty Start Date End Date Greyson Pimentel MD [address] [place] [address] PCP - General 06/01/08 School Bus Technician Relationship Specialty Start Date End Date Greyson Pimentel MD [address] [place] [address] PCP - General 06/01/08 School Bus Technician Relationship Specialty Start Date End Date Greyson Pimentel MD [address] [place] [address] PCP - General 06/01/08 School Bus Technician Relationship Specialty Start Date End Date Greyson Pimentel MD [address] [place] [address] PCP - General 06/01/08 School Bus Technician Relationship Specialty Start Date End Date Greyson Pimentel MD [address] [place] [address] PCP - General 06/01/08 School Bus Technician Relationship Specialty Start Date End Date Greyson Pimentel MD [address] [place] [address] PCP - General 06/01/08 School Bus Technician Relationship Specialty Start Date End Date Greyson Pimentel MD [address] [place] [address] PCP - General 06/01/08 School Bus Technician Relationship Specialty Start Date End Date Greyson Pimentel MD [address] [place] [address] PCP - General 06/01/08 School Bus Technician Relationship Specialty Start Date End Date Greyson Pimentel MD [address] [place] [address] PCP - General 06/01/08 School Bus Technician Relationship Specialty Start Date End Date Greyson Pimentel MD [address] [place] [address] PCP - General 06/01/08 School Bus Technician Relationship Specialty Start Date End Date Greyson Pimentel MD [address] [place], [place] [id number] PCP - General 06/01/08 School Bus Technician Relationship Specialty Start Date End Date Greyson Pimentel MD [address] [place], [place] [id number] PCP - General 06/01/08 School Bus Technician Relationship Specialty Start Date End Date Greyson Pimentel MD [address] [place], [place] [address] [phone] PCP - General 06/01/08 School Bus Technician Relationship Specialty Start Date End Date Greyson Pimentel MD [address] [place], [place] [id number] PCP - General 06/01/08 School Bus Technician Relationship Specialty Start Date End Date Greyson Pimentel MD [address] [place], [place] [address] PCP - General 06/01/08 School Bus Technician Relationship Specialty Start Date End Date Greyson Pimentel MD [address] [place], [place] [address] PCP - General 06/01/08 School Bus Technician Relationship Specialty Start Date End Date Greyson Pimentel MD [address] [place], [place] [address] [phone] PCP - General 06/01/08 Team Status: Active Member Role/Relationship Status Dates Dr. Greyson Pimentel MD Primary care physician Active Team Status: Inactive Member Role/Relationship Status Dates Dr. Greyson Pimentel MD Primary care physician Active Start: May 15, 2025 End: May 15, 2025 Dr. Les Marrero MD Emergency Department Physician Active Start: May 15, 2025 End: May 15, 2025 Reason for Visit (unrecogniz ed section and content) Reason Onset Date Comments IUD Removal 11/03/2024 Specialty Diagnoses / Procedures Referred By Mil t Referred To Contact [facility] Diagnoses Encounter for IUD removal Procedures REMOVE INTRAUTERINE DEVICE REMOVE INTRAUTERINE DEVICE Bobby Chu APRN.[employer] [address] [place] [address] Phone: tel: fax: [address] [phone] Referral ID Status Reason Start Date Expiration Date V isits Requested Visits Authorized [id number] Closed Auto-Generate d Referral 10/28/2024 10/28/2025 1 1 Reason Comments Orders Reason Comments Follow Up Reason Onset Date Comments Insertion Of IUD 07/22/2024 Specialty Diagnoses / Procedures Referred By Mil christy Referred To Contact [facility] Diagnoses care and examination Encounter for initial prescription of intrauterine contraceptive device (IUD) Procedures INSERT INTRAUTERINE DEVICE LEVONORGESTREL IU 52MG 5 YR INSERT INTRAUTERINE DEVICE Sy Pennington MD [address] [place] [address] [address] Referral ID Status Reason Start Date Expiration Date V isits Requested Visits Authorized [id number] Closed Auto-Generate d Referral 07/04/2024 07/04/2025 1 1 Reason Comments Routine Reason Comments Ob Delivery Note Reason Comments Contractions Reason Comments Patient Update Reason Onset Date Comments Care 05/12/2024 Reason Onset Date Comments Care 05/05/2024 Reason Onset Date Comments Care 04/28/2024 Reason Comments Breast Pump Reason Onset Date Comments Care 04/06/2024 Reason Comments US Specialty Diagnoses / Procedures Referred By Mil t Referred To Contact [facility] Diagnoses Screening, , for anatomic survey Procedures OBSTETRIC ULTRASOUND WHI US PREG UTERUS AFTER 1ST TRIMEST GESTATION Concepcion Moralez MD [address] [place] [address] [address] [place] [address] Referral ID Status Reason Start Date Expiration Date V isits Requested Visits Authorized [id number] Closed Auto-Generate d Referral 01/08/2024 12/08/2024 1 1 Reason Onset Date Comments Care 01/06/2024 Reason Onset Date Comments Care 12/09/2023 Reason Comments Sore Throat VYAS, vomiting, bilate ral ear pain, R worse x1 day Reason Comments Release Of Medical Records Reason Comments Shoulder Injury Reason Comments Results Reason Comments Sore Throat Cough, congestion, b ilateral ear pain, chills, fever, hot flashes, body aches, exposed to covid x 2 days Reason Onset Date Comments Refill Request 02/03/2022 Reason Comments Well Child 16 yr WCC; Work Perm it Reason Comments Refill Request Goals (unrecognized section and content) Goals may be documented in a n alternate sectionGoals may be documented in an alternate sectionGoals may be documented in an alternate section FOR RECORDS PERTAINING TO PATIENTS WHO ARE OR HAVE BEEN ENROLLED IN A CHEMICAL DEPENDENCY/SUBSTANCEABUSE PROGRAM, SOME INFORMATION MAY BE OMITTED. This clinical summary was aggregated from multiple sources. Caution should be exercised in using it in the provision of clinical care. This summary normalizes information from multiple sources, and as a consequence, information in this document may materially change the coding, format and clinical context of patient data. In addition, data may be omitted in some cases. CLINICAL DECISIONS SHOULD BE BASED ON THE PRIMARY CLINICAL RECORDS. [facility] [employer] [facility]. provides no warranty or guarantee of the accuracy or completeness of information in this document.
== END 2025-06-02 16:35 | disposition left against medical advice (07) ==
LOC: ED 16:39
PROVIDERS: PCP Pediatrics
DX: R11.2 Nausea with vomiting, unspecified (principal); Z53.21 Procedure and treatment not carried out due to patient leaving prior to being seen by health care provider